=== PATIENT | female | born 1940 | race Caucasian/White ===

== ENCOUNTER 2016-09-12 10:12 | Emergency (ER) | payer MEDICARE, MEDICAID ==
[2016-09-12] MEDS ORDERED: NORMAL SALINE 1000 ML 1,000 ML IV ONE (10:37)
[2016-09-12] MEDS ORDERED: IPRATROPIUM/ALBUTEROL 0.5-2.5 MG/3 ML AMPUL NEB ONE (10:37)
--- NOTE | 2016-09-12 10:42 | ER Document Report ---
ED General - General Chief Complaint: Urinary Problem Stated Complaint: VAGINAL DISCHARGE Time seen by provider: 10:38 Notes: This is a 76-year-old female with a history of COPD that presents today with sudden onset of burning urination, and blood in the urine. She states that 0700 today, she went to urinate and noticed bubble gum pink urine soaked pad, as well as pink drops in the toilet bowl. She states that she was here about 3 weeks ago for the same problem. She was discharged the same day and completed an antibiotic regimen. Denies nausea vomiting fever or chills abdominal and back pain. She denies a history of cancer. She resides at [facility]. TRAVEL OUTSIDE OF THE [place] IN LAST 30 DAYS: No - Related Data Allergies/Adverse Reactions: No Known Allergies Allergy (Unverified 11/10/15 15:12) Past Medical History - Social History Smoking Status: Unknown if Ever Smoked Family History: Arthritis, CAD, CVA, DM, Hypertension, Malignancy - Past Medical History Cardiac Medical History: Reports: Hx Atrial Fibrillation, Hx Congestive Heart Failure, Hx Hypertension Pulmonary Medical History: Reports: Hx COPD GI Medical History: Reports: Hx Gastritis Musculoskeltal Medical History: Reports Hx Arthritis Psychiatric Medical History: Reports: Hx Dementia Past Surgical History: Reports: Hx Cholecystectomy, Hx Oral Surgery, Hx Tubal Ligation - Immunizations Immunizations up to date: Yes Hx Diphtheria, Pertussis, Tetanus Vaccination: Yes - unknown Review of Systems - Review of Systems Constitutional: denies: Chills, Diaphoresis, Fever Cardiovascular: denies: Chest pain Respiratory: denies: Cough Gastrointestinal: denies: Diarrhea, Nausea, Vomiting, Constipation Genitourinary: Dysuria Female Genitourinary: denies: Physical Exam - Vital signs Vitals: Temp Pulse Resp BP Pulse Ox 97.5 F 55 L 16 142/68 H 95 09/12/16 10:13 09/12/16 10:13 09/12/16 10:13 09/12/16 10:13 09/12/16 10:13 - General General appearance: Appears well - HEENT Head: Normocephalic - Respiratory Respiratory status: No: No respiratory distress Chest status: No: Tender Breath sounds: Normal, Wheezing - bilateral expiratory wheezes - Cardiovascular Rhythm: Regular Heart sounds: Normal auscultation - Abdominal Bowel sounds: Normal Tenderness: Nontender - Back Back: No: CVA tenderness - Extremities General upper extremity: Normal inspection General lower extremity: Normal inspection - Neurological Orientation: AAOx4 - Psychological Associated symptoms: Normal affect - Skin Skin Temperature: Warm Skin Moisture: Dry Skin Color: Normal Course - Re-evaluation Re-evalutation: 09/12/16 13:05 Patient is sleeping in bed. Vital signs are stable and reviewed. 09/12/16 14:50 Pelvic exam was done. Marisol RHODES chaperoned. No abnormalities were noted on pelvic exam. no abnormal discharge noted. cervix was closed. - Vital Signs Vital signs: Temp Pulse Resp BP Pulse Ox 98.0 F 62 16 138/64 H 96 09/12/16 18:48 09/12/16 18:48 09/12/16 18:48 09/12/16 18:48 09/12/16 18:48 - Laboratory Result Diagrams: 09/12/16 10:55 09/12/16 10:55 Laboratory results interpreted by me: 09/12/16 09/12/16 09/12/16 10:55 10:55 11:40 RDW 15.2 H Carbon Dioxide 32 H Glucose 74 L Total Protein 6.1 L Urine Protein 30 H Urine Blood LARGE H Ur Leukocyte Esterase MODERATE H Procedures - Pelvic Exam Pelvic exam Time completed: 14:51 Cultures obtained: Yes Wet prep obtained: Yes Herpes culture obtained: No POC sent to lab: No Foreign body removed: No Bimanual exam performed: Yes Witnessed by: Marisol RHODESmanager of applications development - Discharge Clinical Impression: UTI (urinary tract infection) Qualifiers: Urinary tract infection type: site unspecified Hematuria presence: with hematuria Qualified Code(s): N39.0 - Urinary tract infection, site not specified Condition: Stable Disposition: HOME-ASSISTED LIVING Additional Instructions: Return to the emergency department if symptoms worsen. Follow-up with primary care physician. Prescriptions: Amox Tr/Potassium Clavulanate [Augmentin 500-125 Tablet] 1 each PO BID #14 tablet Referrals: Arjun Duarte [employer] [Primary Care Provider] - Follow up as needed
[2016-09-12 11:13] LABS: ABSOLUTE EOSINOPHILS # (AUTO) 0.2 10^3/uL (0.0-0.6); ABSOLUTE LYMPHOCYTES (AUTO) 1.8 10^3/uL (0.5-4.7); ABSOLUTE NEUT (AUTO) 5.9 10^3/uL (1.7-8.2); BASOPHILS % (AUTO) 0.4 % (0-2); EOSINOPHILS % (AUTO) 2.4 % (0-6); HEMATOCRIT 41.8 % (36.0-47.0); HEMOGLOBIN 13.9 g/dL (12.0-15.5); HGB HCT DIFFERENCE -0.1; MEAN CORPUSCULAR HEMOGLOBIN 29.8 pg (27.0-33.4); MEAN CORPUSCULAR HGB CONC 33.3 g/dL (32.0-36.0); MEAN CORPUSCULAR VOLUME 89 fl (80-97); MONOCYTES % (AUTO) 10.9 % (3-13); RED BLOOD COUNT 4.68 10^6/uL (3.72-5.28); RED CELL DISTRIBUTION WIDTH 15.2 % (11.5-14.0); SEGMENTED NEUTROPHILS % (AUTO) 66.3 % (42-78); WHITE BLOOD COUNT 8.9 10^3/uL (4.0-10.5)
[2016-09-12 11:33] LABS: ALANINE AMINOTRANSFERASE 50 U/L (9-52); ALBUMIN 3.6 g/dL (3.5-5.0); ALKALINE PHOSPHATASE 75 U/L (38-126); ANION GAP 8 (5-19); ASPARTATE AMINO TRANSFERASE 35 U/L (14-36); BILIRUBIN,TOTAL 0.4 mg/dL (0.2-1.3); BLOOD UREA NITROGEN 10 mg/dL (7-20); CARBON DIOXIDE 32 mmol/L (22-30); CHLORIDE 101 mmol/L (98-107); CREATININE RESULT 0.85 mg/dL (0.52-1.25); GLUCOSE 74 mg/dL (75-110); POTASSIUM 3.6 mmol/L (3.6-5.0); SODIUM 140.8 mmol/L (137-145); TOTAL PROTEIN 6.1 g/dL (6.3-8.2)
[2016-09-12 12:10] LABS: APPEARANCE,URINE CLEAR; BILIRUBIN,URINE NEGATIVE (NEGATIVE); GLUCOSE, URINE NEGATIVE (NEGATIVE); KETONES,URINE NEGATIVE (NEGATIVE); LEUKOCYTE ESTERASE,URINE MODERATE (NEGATIVE); NITRITE,URINE NEGATIVE (NEGATIVE); PROTEIN,URINE 30 mg/dL (NEGATIVE); URINE SPECIFIC GRAVITY 1.005; UROBILINOGEN,URINE NEGATIVE mg/dL (<2.0)
[2016-09-12 16:39] LABS: CHLAM PCR NOT DETECTED (NOT DETECT)
[2016-09-12 18:51] VITALS: BP 138/64
== END 2016-09-12 18:48 | disposition home health service (06) ==
LOC: ER 10:12
DX: N39.0 Urinary tract infection, site not specified (principal); I48.91 Unspecified atrial fibrillation; I50.9 Heart failure, unspecified; I10 Essential (primary) hypertension; J44.9 Chronic obstructive pulmonary disease, unspecified; Z90.49 Acquired absence of other specified parts of digestive tract; Z98.51 Tubal ligation status
CPT/HCPCS: 94640; 99284; 96360; 36415; 87086; 87210; 85025; 80053; 81001; 87491; 87591; 71020; J7030; A9270; J7620

== ENCOUNTER 2017-01-02 14:20 | Inpatient (IN) | payer MEDICARE, MEDICAID ==
[2017-01-02] MEDS ORDERED: IPRATROPIUM/ALBUTEROL 0.5-2.5 MG/3 ML AMPUL NEB ONE (14:25)
--- NOTE | 2017-01-02 14:58 | ER Document Report ---
ED General - General Chief Complaint: Respiratory Distress Stated Complaint: BREATHING CONCERNS Mode of Arrival: Medic Information source: Patient, Emergency Med Personnel, [facility] Records Notes: This is a 76-year-old female who presents from [facility] secondary to increased work of breathing. She has a history of dementia and has had prior pneumonia. Reportedly at the shelter she was noted to be 91% on her 3 L. Normally she uses 2 L nasal cannula as needed. Also at the shelter she was noted to have a temperature of 101.3 she has been coughing up yellow and green sputum for the past few days. Patient reports that she is nauseated and has vomited today. She denies any chest pain. She received Solu-Medrol and a DuoNeb in route and she states that she is feeling much better right now. TRAVEL OUTSIDE OF THE [place] IN LAST 30 DAYS: No - Related Data Allergies/Adverse Reactions: No Known Allergies Allergy (Unverified 11/10/15 15:12) Past Medical History - General Information source: [facility] Records Cannot obtain history due to: Dementia - Social History Smoking Status: Unknown if Ever Smoked Frequency of alcohol use: None Drug Abuse: None Lives with: [facility] Family History: Arthritis, CAD, CVA, DM, Hypertension, Malignancy - Past Medical History Cardiac Medical History: Reports: Hx Atrial Fibrillation, Hx Congestive Heart Failure, Hx Hypertension Pulmonary Medical History: Reports: Hx COPD GI Medical History: Reports: Hx Gastritis Musculoskeltal Medical History: Reports Hx Arthritis Psychiatric Medical History: Reports: Hx Dementia Past Surgical History: Reports: Hx Cholecystectomy, Hx Oral Surgery, Hx Tubal Ligation - Immunizations Immunizations up to date: Yes Hx Diphtheria, Pertussis, Tetanus Vaccination: Yes - unknown Review of Systems - Review of Systems -: Yes ROS unobtainable due to patient's medical condition Constitutional: Fever Cardiovascular: denies: Chest pain Physical Exam - Vital signs Vitals: Temp Pulse Resp BP Pulse Ox 99.3 F 70 32 H 128/65 H 87 L 01/02/17 14:27 01/02/17 14:27 01/02/17 14:27 01/02/17 14:27 01/02/17 14:27 - Notes Notes: PHYSICAL EXAMINATION: GENERAL: Frail elderly female who is alert and conversant. She is in no acute distress. She has no conversational dyspnea. She does have frequent deep and productive cough. HEAD: Atraumatic, normocephalic. EYES: Pupils equal round and reactive to light, extraocular movements intact, sclera anicteric, conjunctiva are normal. ENT: nares patent, oropharynx clear without exudates. Moist mucous membranes. NECK: Normal range of motion, supple without lymphadenopathy LUNGS: Decreased breath sounds in left base. Faint occasional scattered expiratory wheeze. Otherwise good air movement. HEART: Regular rate and rhythm without murmurs ABDOMEN: Soft, nontender, normoactive bowel sounds. No guarding, no rebound. No masses appreciated. EXTREMITIES: Normal range of motion. No edema NEUROLOGICAL: Cranial nerves grossly intact. Normal speech. No gross focal motor or sensory deficits appreciated. PSYCH: Normal mood, normal affect. SKIN: Warm, Dry, normal turgor, no rashes or lesions noted. Course - Re-evaluation Re-evalutation: 01/02/17 14:56 Upon arrival to the ER patient was noted to have a room air sat of 87%. She was placed on 2 L nasal cannula and is now 94%. At this time, will proceed with workup for possible pneumonia/COPD exacerbation NH paperwork reviewed and pt's status is noted to be DNR. 01/02/17 16:32 CXR reviewed, pt with LLL pneumonia and leukocytosis/fever/O2 requirement. Will admit. IV antibiotics initiated in ER. Discussed with Dr. Lloyd for admission. - Vital Signs Vital signs: Temp Pulse Resp BP Pulse Ox 99.3 F 70 16 97/74 L 95 01/02/17 14:27 01/02/17 14:27 01/02/17 15:01 01/02/17 15:01 01/02/17 15:01 - Laboratory Result Diagrams: 01/02/17 14:40 01/02/17 14:40 Laboratory results interpreted by me: 01/02/17 01/02/17 01/02/17 14:40 14:40 14:40 WBC 19.1 H RDW 15.0 H Seg Neuts % (Manual) 85 H Band Neutrophils % 1 L Lymphocytes % (Manual) 7 L Abs Neuts (Manual) 16.4 H Glucose 114 H POC Glucose ALT 60 H Creatine Kinase 24 L Urine Protein Urine Ketones Urine Blood 01/02/17 01/02/17 14:54 15:20 WBC RDW Seg Neuts % (Manual) Band Neutrophils % Lymphocytes % (Manual) Abs Neuts (Manual) Glucose POC Glucose 118 H ALT Creatine Kinase Urine Protein 100 H Urine Ketones TRACE H Urine Blood SMALL H - EKG Interpretation by Me Additional EKG results interpreted by me: 01/02/17 14:57 EKG at 1433 demonstration sinus rhythm with a rate of 64. She does have a right axis deviation. She does have diffuse T-wave changes which were present on previous EKG however T-wave inversions are more pronounced laterally today. Discharge - Discharge Clinical Impression: Left lower lobe pneumonia Qualifiers: Pneumonia type: due to unspecified organism Qualified Code(s): J18.1 - Lobar pneumonia, unspecified organism Condition: Fair Disposition: ADMITTED INPATIENT Admitting Provider: Hospitalist - Dr. Nam Unit Admitted: [facility]
[2017-01-02 15:02] LABS: VENOUS BLOOD BASE EXCESS 0.7 mmol/L; VENOUS BLOOD PCO2 43.9 mmHg (35-63); VENOUS BLOOD PH 7.39 (7.30-7.42)
[2017-01-02 15:04] LABS: HEMATOCRIT 44.6 % (36.0-47.0); HEMOGLOBIN 14.9 g/dL (12.0-15.5); HGB HCT DIFFERENCE 0.1; MEAN CORPUSCULAR HEMOGLOBIN 30.4 pg (27.0-33.4); MEAN CORPUSCULAR HGB CONC 33.4 g/dL (32.0-36.0); MEAN CORPUSCULAR VOLUME 91 fl (80-97); WHITE BLOOD COUNT 19.1 10^3/uL (4.0-10.5)
[2017-01-02 15:15] LABS: PROTHROMBIN TIME 12.9 SEC (11.4-15.4)
[2017-01-02 15:17] LABS: ALANINE AMINOTRANSFERASE 60 U/L (9-52); ALBUMIN 3.7 g/dL (3.5-5.0); ALKALINE PHOSPHATASE 92 U/L (38-126); ANION GAP 15 (5-19); ASPARTATE AMINO TRANSFERASE 30 U/L (14-36); BILIRUBIN,DIRECT 0.2 mg/dL (0.0-0.4); BILIRUBIN,TOTAL 0.9 mg/dL (0.2-1.3); BLOOD UREA NITROGEN 15 mg/dL (7-20); CALCIUM 9.6 mg/dL (8.4-10.2); CARBON DIOXIDE 24 mmol/L (22-30); CHLORIDE 101 mmol/L (98-107); CREATININE RESULT 0.75 mg/dL (0.52-1.25); GLUCOSE 114 mg/dL (75-110); POTASSIUM 4.1 mmol/L (3.6-5.0); SODIUM 139.9 mmol/L (137-145); TOTAL PROTEIN 6.4 g/dL (6.3-8.2)
[2017-01-02 15:21] LABS: BAND NEUTROPHILS % (MANUAL) 1 % (3-5); BASOPHILS % (MANUAL) 0 % (0-2); EOSINOPHILS % (MANUAL) 1 % (0-6); LYMPHOCYTES % (MANUAL) 7 % (13-45); TOTAL CELLS COUNTED 100
[2017-01-02 15:22] LABS: RBC MORPHOLOGY COMMENT NORMO-CYTIC/CHROMIC
[2017-01-02 15:28] LABS: CREATINE KINASE MB 0.36 ng/mL (<4.55)
[2017-01-02 15:30] LABS: TROPONIN I < 0.012 ng/mL
[2017-01-02] MEDS: ALBUTEROL SULFATE 0.083% NEB 2.5 MG/3 ML AMPUL NEB SCH ×2 (15:42→16:00)
[2017-01-02 15:58] LABS: APPEARANCE,URINE CLEAR; BILIRUBIN,URINE NEGATIVE (NEGATIVE); GLUCOSE, URINE NEGATIVE (NEGATIVE); KETONES,URINE TRACE mg/dL (NEGATIVE); LEUKOCYTE ESTERASE,URINE NEGATIVE (NEGATIVE); NITRITE,URINE NEGATIVE (NEGATIVE); PROTEIN,URINE 100 mg/dL (NEGATIVE); URINE SPECIFIC GRAVITY 1.024; UROBILINOGEN,URINE NEGATIVE mg/dL (<2.0)
[2017-01-02] MEDS ORDERED: VANCOMYCIN HCL INJ 1000 MG VIAL IV ONE (16:22)
[2017-01-02] MEDS ORDERED: CEFEPIME 2 GM/D5W RTU 50 ML IV ONE (16:22)
--- NOTE | 2017-01-02 17:04 | EKG REPORT ---
SEVERITY:- ABNORMAL ECG - SINUS RHYTHM RIGHT AXIS DEVIATION ABNORMAL T, CONSIDER ISCHEMIA, DIFFUSE LEADS : Confirmed by: Layne Zambrano MD 02-Jan-2017 17:03:13
[2017-01-02] MEDS ORDERED: IPRATROPIUM/ALBUTEROL 0.5-2.5 MG/3 ML AMPUL NEB PRN (17:36)
[2017-01-02] MEDS ORDERED: 1/2 NORMAL SALINE 1,000 ML with POTASSIUM CHLORIDE 20 MEQ IV PRN ×2 (17:36)
[2017-01-02] MEDS ORDERED: ACETAMINOPHEN 325 MG TABLET PO PRN (17:36)
[2017-01-02] MEDS ORDERED: VANCOMYCIN HCL 0 MG in DEXTROSE 5%-WATER 250 ML IV NR (18:00)
--- NOTE | 2017-01-02 18:09 | PDOC H&P ---
History of Present Illness Admission Date/PCP: 01/02/17 16:50 NOEL NAVARRO NP History of Present Illness: NIGHAT LIVINGSTON is a 76 year old white female with a past medical history significant for dementia, tobacco use, Atrial fibrillation, hypertension and COPD who presents to the service with complaints of shortness of breath. She is presenting from a nursing facility. Apparently, she became short of breath there and had a fever of 101. She was brought in by EMS and was found to have a left lower lobe pneumonia. She was found to be satting well around 94%. White blood cell count was 19. She was started on 2 g of cefepime and vancomycin. At the bedside the patient currently has no complaints. She says she feels a little bit better with her breathing. He also states that she has a cough but can't quite bring it all the way up. She denies any nausea vomiting continued fevers or chills. Past Medical History Cardiac Medical History: Reports: Atrial Fibrillation, Congestive Heart Failure , Hypertension Pulmonary Medical History: Reports: Chronic Obstructive Pulmonary Disease (COPD) GI Medical History: Reports: Other GI History Note: Gastritis Musculoskeltal Medical History: Reports: Arthritis Psychiatric Medical History: Reports: Dementia Past Surgical History Past Surgical History: Reports: Cholecystectomy, Tubal Ligation Social History Information Source: [facility] with: [facility] Smoking Status: Current Every Day Smoker Frequency of Alcohol Use: None Hx Recreational Drug Use: No - she denies illegal drug use but states that she likes the smell of MJ Hx Prescription Drug Abuse: No Past Social History Note: Patient has been smoking since she was a teenager. She currently smokes one half pack of cigarettes per week. At its worse she would smoke 2 packs per day. Family History Family History: Arthritis, CAD, CVA, DM, Hypertension, Malignancy Parental Family History Reviewed: Yes Children Family History Reviewed: Yes Sibling(s) Family History Reviewed.: Yes Medication/Allergy Home Medications: Amiodarone HCl 100 mg PO QHS 05/02/16 Aspirin 81 mg PO DAILY 05/02/16 Cetirizine HCl [Allergy] 10 mg PO DAILY 05/02/16 Cholecalciferol (Vitamin D3) [Vitamin D3] 2,000 unit PO DAILY 05/02/16 Donepezil HCl 10 mg PO DAILY 05/02/16 Fluoxetine HCl 80 mg PO DAILY 05/02/16 Guaifenesin [Mucinex] 600 mg PO Q12 05/02/16 Ipratropium/Albuterol Sulfate [Duoneb 3 ml Ampul] 3 ml NEB [id number] PRN 05/02/16 Lisinopril [Zestril] 2.5 mg PO Q12 05/02/16 Lorazepam [Ativan 0.5 mg Tablet] 1 mg PO TID 05/02/16 Melatonin/Pyridoxine [Melatonin 3 mg Tablet] 3 mg PO QHS 05/02/16 Montelukast Sodium 10 mg PO DAILY 05/02/16 Prednisone 5 mg PO DAILY 05/02/16 Simvastatin [Zocor 10 mg Tablet] 10 mg PO QHS 05/02/16 Topiramate 100 mg PO QHS 05/02/16 Acetaminophen [Mapap] 500 mg PO Q4 PRN 01/03/17 Fluticasone Propionate [Flonase Nasal [place] 50 Mcg/[place] 16 gm] 1 spray NASL BID 01/03/17 Guaifenesin [Robitussin Syrup 200 mg/10 ml Ud Cup] 10 ml PO Q6HP PRN 01/03/17 Loperamide HCl [Loperamide] 2 mg PO PRN PRN MDD 8 01/03/17 Mag Hydrox/Al Hydrox/Simeth [Maalox Suspension] 30 ml PO PRN PRN 01/03/17 Magnesium Hydroxide [Milk of Magnesia] 30 ml PO HSP PRN 01/03/17 Neomy Sulf/Bacitrac Zn/Poly [Triple Antibiotic Ointment] 1 applic TP PRN PRN Propranolol HCl [Propranolol HCl] 10 mg PO Q8 01/03/17 Allergies/Adverse Reactions: No Known Allergies Allergy (Unverified 11/10/15 15:12) Review of Systems Review of Systems: Review of systems is positive already listed in the history of present illness. In addition to this patient admits arthritic symptoms. She lives in a nursing facility and states that she walks with a walker. He occasionally has diarrhea whenever she eats too much chocolate. She denies any decrease in appetite. She denies nausea vomiting. She denies constipation. She denies visual changes. She denies lightheadedness or dizziness. She denies any hot or cold intolerance. Physical Exam Vital Signs: Temp Pulse Resp BP Pulse Ox 99.3 F 70 16 97/74 L 95 01/02/17 14:27 01/02/17 14:27 01/02/17 15:01 01/02/17 15:01 01/02/17 15:01 PHYSICAL EXAM: GENERAL: This is a well-developed well-nourished frail-appearing white female resting in no acute distress. HEENT: Normocephalic atraumatic. Trachea is midline. Sclerae are anicteric. Poor dentition. Patient is largely intentional S. With a few broken off teeth. She states that she left her uppers where she lives. Moist mucous membranes. HEART: Regular rate and rhythm. No murmurs rubs or gallops. On the telemetry however she is in and out of A. fib. LUNGS: Diminished at the bases bilaterally with equal rise and fall of the chest. No wheezes, rales or rhonchi. ABDOMEN: Soft, nontender, nondistended with normoactive bowel sounds EXTREMITIES: No clubbing cyanosis or edema. 2+ peripheral pulses. 5 out of 5 in the upper and lower extremities bilaterally. NEURO: Awake, alert, oriented to self. Cranial nerves II through XII grossly intact. She answers most of my questions appropriately. It's not until I ask questions about where she is an the president and the date that she begins to have trouble. She jokingly starts to use expletives. And then states that she has a lover where she lives and that she would like to talk to him PSYCH: Normal affect. Results Impressions: Chest X-Ray 01/02/17 14:25 IMPRESSION: Left lower lobe pneumonia. Assessment & Plan - Diagnosis (1) Left lower lobe pneumonia Qualifiers: Pneumonia type: due to unspecified organism Qualified Code(s): J18.1 - Lobar pneumonia, unspecified organism Plan: This is a healthcare acquired left lower lobe pneumonia. We will keep her on Zosyn and vancomycin for the moment. Try her best to obtain a sputum sample. Will have as needed and scheduled nebulizer treatments. Continue oxygen as needed. Keep sats greater than 88%. (2) COPD without exacerbation Plan: Continue nebulizer schedule As well as when necessary. No need for steroids. Oxygen therapy. (3) Hypertension Plan: Continue Outpatient medications. (4) Dementia Plan: Patient is stable I suspect that she is at baseline. She does not seem delirious. - Time Time Spent: 50 to 70 Minutes - Inpatient Certification Based on my medical assessment, after consideration of the patient's comorbidities, presenting symptoms, or acuity I expect that the services needed warrant INPATIENT care.: Yes I certify that my determination is in accordance with my understanding of Medicare's requirements for reasonable and necessary INPATIENT services [42 CFR 412.3e].: Yes Medical Necessity: Need Close Monitoring Due to Risk of Patient Decompensation
[2017-01-02] MEDS ORDERED: PIPERACILLIN/TAZOBACTAM 3.375 GM VIAL IV PRN (18:35)
[2017-01-02] MEDS: POTASSI CL 20 MEQ/1/2NS 1L 1000 ML IV PRN (20:29)
[2017-01-02] MEDS: AMIODARONE HCL 200 MG TABLET PO SCH (21:54)
[2017-01-02] MEDS: SIMVASTATIN 10 MG TABLET PO SCH (21:55)
[2017-01-02] MEDS: LISINOPRIL 5 MG TABLET PO SCH (21:56)
[2017-01-02] MEDS: PIPERACILLIN SODIUM/TAZOBACTAM 3.375 GM in NORMAL SALINE 100 ML IV SCH (21:59)
[2017-01-03] MEDS ORDERED: PIPERACILLIN/TAZOBACTAM 3.375 GM VIAL IV ONE (03:16)
[2017-01-03] MEDS: PIPERACILLIN SODIUM/TAZOBACTAM 3.375 GM in NORMAL SALINE 100 ML IV SCH ×3 (03:31→14:38)
[2017-01-03 06:57] LABS: HEMATOCRIT 41.7 % (36.0-47.0); HEMOGLOBIN 13.9 g/dL (12.0-15.5); MEAN CORPUSCULAR HEMOGLOBIN 30.4 pg (27.0-33.4); MEAN CORPUSCULAR HGB CONC 33.2 g/dL (32.0-36.0); MEAN CORPUSCULAR VOLUME 92 fl (80-97); RED BLOOD COUNT 4.56 10^6/uL (3.72-5.28); RED CELL DISTRIBUTION WIDTH 15.1 % (11.5-14.0); WHITE BLOOD COUNT 11.6 10^3/uL (4.0-10.5)
[2017-01-03 07:19] LABS: ANION GAP 11 (5-19); BLOOD UREA NITROGEN 20 mg/dL (7-20); CALCIUM 9.4 mg/dL (8.4-10.2); CARBON DIOXIDE 26 mmol/L (22-30); CHLORIDE 102 mmol/L (98-107); CREATININE RESULT 0.79 mg/dL (0.52-1.25); GLUCOSE 125 mg/dL (75-110); MAGNESIUM 1.9 mg/dL (1.6-2.3); POTASSIUM 4.4 mmol/L (3.6-5.0); SODIUM 139.4 mmol/L (137-145)
[2017-01-03 07:54] LABS: BASOPHILS % (MANUAL) 0 % (0-2); EOSINOPHILS % (MANUAL) 0 % (0-6); LYMPHOCYTES % (MANUAL) 2 % (13-45); TOTAL CELLS COUNTED 100
[2017-01-03 07:55] LABS: ANISOCYTOSIS SLIGHT; POLYCHROMASIA SLIGHT; TOXIC GRANULATION SLIGHT
[2017-01-03] MEDS: DONEPEZIL HCL 5 MG TABLET PO SCH (09:16)
[2017-01-03] MEDS: LISINOPRIL 5 MG TABLET PO SCH ×2 (09:16→23:39)
[2017-01-03] MEDS: ASPIRIN 81 MG TABLET, CHEWABLE PO SCH (09:16)
[2017-01-03] MEDS: ENOXAPARIN SODIUM INJ 40 MG/0.4 ML DISP.SYRIN SUBCUT SCH (09:16)
[2017-01-03] MEDS: FLUOXETINE HCL 20 MG CAPSULE PO SCH (09:16)
[2017-01-03] MEDS ORDERED: ACETAMINOPHEN 325 MG TABLET PO PRN (13:33)
--- NOTE | 2017-01-03 15:41 | PDOC PROGRESS REPORT ---
Subjective Progress Note for:: 01/03/17 Subjective:: This is a follow-up visit for healthcare associated pneumonia. At the bedside patient is doing quite well. She has no complaints except for little bit of anxiety. I reassured her that I have ordered her anxiolytic for today Physical Exam Vital Signs: Temp Pulse Resp BP Pulse Ox 97.5 F 92 18 151/66 H 96 01/03/17 07:36 01/03/17 15:21 01/03/17 15:21 01/03/17 07:36 01/03/17 15:21 Intake & Output 01/02/17 01/03/17 01/04/17 06:59 06:59 06:59 Intake Total 313 Balance 313 Weight 65.5 kg PHYSICAL EXAM: GENERAL: This is a well-developed well-nourished frail-appearing white female resting in no acute distress. HEENT: Normocephalic atraumatic. Trachea is midline. Sclerae are anicteric. Poor dentition. HEART: Regular rate and rhythm. No murmurs rubs or gallops. LUNGS: Diminished at the bases bilaterally with equal rise and fall of the chest. No wheezes, rales or rhonchi. ABDOMEN: nondistended EXTREMITIES: No clubbing cyanosis or edema. NEURO: Awake, alert, oriented to self. Cranial nerves II through XII grossly intact. S PSYCH: Normal affect. Patient is quite animated today. Results Laboratory Results: 01/03/17 06:22 01/03/17 06:22 01/03/17 01/03/17 06:22 06:22 WBC 11.6 H RBC 4.56 Hgb 13.9 Hct 41.7 MCV 92 MCH 30.4 MCHC 33.2 RDW 15.1 H Plt Count 186 Seg Neutrophils % Not Reportable Lymphocytes % Not Reportable Monocytes % Not Reportable Eosinophils % Not Reportable Basophils % Not Reportable Absolute Neutrophils Not Reportable Absolute Lymphocytes Not Reportable Absolute Monocytes Not Reportable Absolute Eosinophils Not Reportable Absolute Basophils Not Reportable Sodium 139.4 Potassium 4.4 Chloride 102 Carbon Dioxide 26 Anion Gap 11 BUN 20 Creatinine 0.79 Est GFR ( Amer) > 60 Est GFR (Non-Af Amer) > 60 Glucose 125 H Calcium 9.4 Magnesium 1.9 01/03/17 06:22 NT-Pro-B Natriuret Pep 267 Impressions: Chest X-Ray 01/02/17 14:25 IMPRESSION: Left lower lobe pneumonia. Assessment & Plan - Diagnosis (1) Left lower lobe pneumonia Qualifiers: Pneumonia type: due to unspecified organism Qualified Code(s): J18.1 - Lobar pneumonia, unspecified organism Plan: This is a healthcare acquired left lower lobe pneumonia. We will keep her on Zosyn and vancomycin for the moment. Try her best to obtain a sputum sample. Will have as needed and scheduled nebulizer treatments. Continue oxygen as needed. Keep sats greater than 88%. Her white blood cell count is down to 11. She is doing quite well. Anticipate should be able to go home tomorrow. If so she will likely do well with something like Levaquin. (2) COPD without exacerbation Plan: Continue nebulizer schedule As well as when necessary. No need for steroids. Oxygen therapy. (3) Hypertension Plan: Continue Outpatient medications. (4) Dementia Plan: Patient is stable I suspect that she is at baseline. She does not seem delirious. Continue donepezil - Time Time Spent with patient: 15-24 minutes Within: within 24 hours - Inpatient Certification Medical Necessity: Significant Comorbidiites Make Outpatient Treatment Too Risky
[2017-01-03] MEDS: VANCOMYCIN HCL 500 MG in DEXTROSE 5%-WATER 100 ML IV SCH (18:27)
[2017-01-03] MEDS: LORAZEPAM 0.5 MG TABLET PO SCH (18:27)
[2017-01-03] MEDS: FLUTICASONE NASAL SPRAY 50 MCG/SPRY 120 SPRAY/16 GM NASL SCH (20:37)
[2017-01-03] MEDS ORDERED: MELATONIN PO SCH (22:00)
[2017-01-03] MEDS ORDERED: PYRIDOXINE PO SCH (22:00)
[2017-01-03] MEDS: AMIODARONE HCL 200 MG TABLET PO SCH (23:40)
[2017-01-03] MEDS: GUAIFENESIN 600 MG TABLET.SA PO SCH (23:41)
[2017-01-03] MEDS: PROPRANOLOL HCL 10 MG TABLET PO SCH (23:41)
[2017-01-03] MEDS: SIMVASTATIN 10 MG TABLET PO SCH (23:41)
[2017-01-04] MEDS: PIPERACILLIN SODIUM/TAZOBACTAM 3.375 GM in NORMAL SALINE 100 ML IV SCH ×3 (01:25→08:33)
[2017-01-04] MEDS: VANCOMYCIN HCL 500 MG in DEXTROSE 5%-WATER 100 ML IV SCH (05:44)
[2017-01-04] MEDS: PROPRANOLOL HCL 10 MG TABLET PO SCH (05:44)
[2017-01-04 06:54] LABS: ABSOLUTE EOSINOPHILS # (AUTO) 0.1 10^3/uL (0.0-0.6); ABSOLUTE LYMPHOCYTES (AUTO) 1.6 10^3/uL (0.5-4.7); ABSOLUTE MONOCYTES (AUTO) 1.1 10^3/uL (0.1-1.4); ABSOLUTE NEUT (AUTO) 5.9 10^3/uL (1.7-8.2); BASOPHILS % (AUTO) 0.3 % (0-2); EOSINOPHILS % (AUTO) 1.6 % (0-6); HEMATOCRIT 41.8 % (36.0-47.0); HGB HCT DIFFERENCE 0.2; LYMPHOCYTES % (AUTO) 17.7 % (13-45); MEAN CORPUSCULAR HEMOGLOBIN 30.7 pg (27.0-33.4); MEAN CORPUSCULAR HGB CONC 33.6 g/dL (32.0-36.0); MEAN CORPUSCULAR VOLUME 91 fl (80-97); MONOCYTES % (AUTO) 12.7 % (3-13); RED BLOOD COUNT 4.58 10^6/uL (3.72-5.28); SEGMENTED NEUTROPHILS % (AUTO) 67.7 % (42-78); WHITE BLOOD COUNT 8.8 10^3/uL (4.0-10.5)
[2017-01-04 07:09] LABS: ANION GAP 11 (5-19); BLOOD UREA NITROGEN 22 mg/dL (7-20); CALCIUM 9.1 mg/dL (8.4-10.2); CARBON DIOXIDE 27 mmol/L (22-30); CHLORIDE 105 mmol/L (98-107); CREATININE RESULT 0.82 mg/dL (0.52-1.25); GLUCOSE 94 mg/dL (75-110); POTASSIUM 3.8 mmol/L (3.6-5.0); SODIUM 142.8 mmol/L (137-145)
[2017-01-04] MEDS: IPRATROPIUM/ALBUTEROL 0.5-2.5 MG/3 ML AMPUL NEB PRN ×2 (07:47→22:30)
[2017-01-04] MEDS: FLUTICASONE NASAL SPRAY 50 MCG/SPRY 120 SPRAY/16 GM NASL SCH ×2 (09:14→17:53)
[2017-01-04] MEDS: FLUOXETINE HCL 20 MG CAPSULE PO SCH (09:15)
[2017-01-04] MEDS: MONTELUKAST SODIUM 10 MG TABLET PO SCH (09:15)
[2017-01-04] MEDS: DONEPEZIL HCL 5 MG TABLET PO SCH (09:16)
[2017-01-04] MEDS: CETIRIZINE 10 MG TABLET PO SCH (09:16)
[2017-01-04] MEDS: LORAZEPAM 0.5 MG TABLET PO SCH ×3 (09:16→17:54)
[2017-01-04] MEDS: GUAIFENESIN 600 MG TABLET.SA PO SCH ×2 (09:16→22:12)
[2017-01-04] MEDS: CHOLECALCIFEROL (D3) 1,000 UNIT TABLET PO SCH (09:16)
[2017-01-04] MEDS: PREDNISONE 5 MG TABLET PO SCH (09:16)
[2017-01-04] MEDS: ASPIRIN 81 MG TABLET, CHEWABLE PO SCH (09:16)
[2017-01-04] MEDS: LISINOPRIL 5 MG TABLET PO SCH ×2 (09:16→22:12)
[2017-01-04] MEDS ORDERED: (PENDING PHARMACY ID) (Cholecalciferol (Vitamin D3) [Vitamin D3] 2,000 UNIT) PO SCH (10:00)
--- NOTE | 2017-01-04 13:26 | PDOC PROGRESS REPORT ---
Subjective Progress Note for:: 01/04/17 Subjective:: Patient is doing well she has no complaints No shortness of breath no chest pain Today she is actually alert and awake and answers questions appropriately On the monitor she was found to be bradycardic at the rate 40-50 Physical Exam Vital Signs: Temp Pulse Resp BP Pulse Ox 98.8 F 48 L 16 124/50 L 100 01/04/17 11:32 01/04/17 11:32 01/04/17 11:32 01/04/17 11:32 01/04/17 11:32 Intake & Output 01/03/17 01/04/17 01/05/17 00:59 00:59 00:59 Intake Total 537 1503 1021 Output Total 100 Balance 437 1503 1021 Weight 65.5 kg 65.5 kg General appearance: PRESENT: no acute distress, well-developed, well-nourished Head exam: PRESENT: atraumatic, normocephalic Eye exam: PRESENT: conjunctiva pink, EOMI, PERRLA. ABSENT: scleral icterus Ear exam: PRESENT: normal external ear exam Mouth exam: PRESENT: moist, tongue midline Neck exam: ABSENT: carotid bruit, JVD, lymphadenopathy, thyromegaly Respiratory exam: PRESENT: clear to auscultation robbin. ABSENT: rales, rhonchi, wheezes Cardiovascular exam: PRESENT: RRR. ABSENT: diastolic murmur, rubs, systolic murmur Pulses: PRESENT: normal dorsalis pedis pul Vascular exam: PRESENT: normal capillary refill GI/Abdominal exam: PRESENT: normal bowel sounds, soft. ABSENT: distended, guarding, mass, organolmegaly, rebound, tenderness Rectal exam: PRESENT: deferred Extremities exam: PRESENT: full ROM. ABSENT: calf tenderness, clubbing, pedal edema Neurological exam: PRESENT: alert, awake, oriented to person, oriented to place , oriented to time, oriented to situation, CN II-XII grossly intact. ABSENT: motor sensory deficit Psychiatric exam: PRESENT: appropriate affect, normal mood. ABSENT: homicidal ideation, suicidal ideation Skin exam: PRESENT: dry, intact, warm. ABSENT: cyanosis, rash Results Laboratory Results: 01/04/17 06:35 01/04/17 06:35 01/04/17 01/04/17 06:35 06:35 WBC 8.8 RBC 4.58 Hgb 14.0 Hct 41.8 MCV 91 MCH 30.7 MCHC 33.6 RDW 15.0 H Plt Count 218 Seg Neutrophils % 67.7 Lymphocytes % 17.7 Monocytes % 12.7 Eosinophils % 1.6 Basophils % 0.3 Absolute Neutrophils 5.9 Absolute Lymphocytes 1.6 Absolute Monocytes 1.1 Absolute Eosinophils 0.1 Absolute Basophils 0.0 Sodium 142.8 Potassium 3.8 Chloride 105 Carbon Dioxide 27 Anion Gap 11 BUN 22 H Creatinine 0.82 Est GFR ( Amer) > 60 Est GFR (Non-Af Amer) > 60 Glucose 94 Calcium 9.1 Magnesium 2.0 01/03/17 06:22 NT-Pro-B Natriuret Pep 267 Impressions: Chest X-Ray 01/02/17 14:25 IMPRESSION: Left lower lobe pneumonia. Assessment & Plan - Diagnosis (1) Bradycardia Is this a current diagnosis for this admission?: Yes (2) Dementia Qualifiers: Dementia type: unspecified type Is this a current diagnosis for this admission?: Yes (3) Hypertension Qualifiers: Hypertension type: essential hypertension Qualified Code(s): I10 - Essential (primary) hypertension (4) Left lower lobe pneumonia Qualifiers: Pneumonia type: due to unspecified organism Qualified Code(s): J18.1 - Lobar pneumonia, unspecified organism Is this a current diagnosis for this admission?: Yes - Time Time Spent with patient: We will discontinue propranolol And also will decrease ; Prozac patient is on 80mg a day We will decrease it to 40 mg because of her age Patient will be switched to by mouth antibiotics and discharged in a.m. if she remains stable Time Spent with patient: 25-34 minutes
[2017-01-04] MEDS: POTASSI CL 20 MEQ/1/2NS 1L 1000 ML IV PRN (14:14)
[2017-01-04] MEDS: SIMVASTATIN 10 MG TABLET PO SCH (22:12)
[2017-01-04] MEDS: DOXYCYCLINE HYCLATE 100 MG TABLET PO SCH (22:13)
[2017-01-04] MEDS: AMIODARONE HCL 200 MG TABLET PO SCH (22:13)
[2017-01-05 07:08] LABS: ABSOLUTE EOSINOPHILS # (AUTO) 0.1 10^3/uL (0.0-0.6); ABSOLUTE LYMPHOCYTES (AUTO) 1.5 10^3/uL (0.5-4.7); ABSOLUTE NEUT (AUTO) 4.8 10^3/uL (1.7-8.2); BASOPHILS % (AUTO) 0.2 % (0-2); HEMATOCRIT 40.6 % (36.0-47.0); HEMOGLOBIN 13.5 g/dL (12.0-15.5); HGB HCT DIFFERENCE -0.1; LYMPHOCYTES % (AUTO) 20.2 % (13-45); MEAN CORPUSCULAR HEMOGLOBIN 30.4 pg (27.0-33.4); MEAN CORPUSCULAR HGB CONC 33.2 g/dL (32.0-36.0); MEAN CORPUSCULAR VOLUME 91 fl (80-97); MONOCYTES % (AUTO) 13.1 % (3-13); RED BLOOD COUNT 4.44 10^6/uL (3.72-5.28); RED CELL DISTRIBUTION WIDTH 14.5 % (11.5-14.0); SEGMENTED NEUTROPHILS % (AUTO) 64.5 % (42-78); WHITE BLOOD COUNT 7.5 10^3/uL (4.0-10.5)
[2017-01-05 07:42] LABS: ANION GAP 8 (5-19); BLOOD UREA NITROGEN 21 mg/dL (7-20); CALCIUM 9.1 mg/dL (8.4-10.2); CARBON DIOXIDE 34 mmol/L (22-30); CHLORIDE 102 mmol/L (98-107); CREATININE RESULT 0.77 mg/dL (0.52-1.25); GLUCOSE 87 mg/dL (75-110); MAGNESIUM 1.8 mg/dL (1.6-2.3); SODIUM 143.8 mmol/L (137-145)
[2017-01-05] MEDS: ASPIRIN 81 MG TABLET, CHEWABLE PO SCH (09:55)
[2017-01-05] MEDS: DONEPEZIL HCL 5 MG TABLET PO SCH (09:55)
[2017-01-05] MEDS: DOXYCYCLINE HYCLATE 100 MG TABLET PO SCH ×2 (09:56→21:39)
[2017-01-05] MEDS: LORAZEPAM 0.5 MG TABLET PO SCH ×3 (09:56→18:25)
[2017-01-05] MEDS: CETIRIZINE 10 MG TABLET PO SCH (09:56)
[2017-01-05] MEDS: GUAIFENESIN 600 MG TABLET.SA PO SCH ×2 (09:56→21:39)
[2017-01-05] MEDS: MONTELUKAST SODIUM 10 MG TABLET PO SCH (09:56)
[2017-01-05] MEDS: PREDNISONE 5 MG TABLET PO SCH (09:56)
[2017-01-05] MEDS: FLUOXETINE HCL 20 MG CAPSULE PO SCH (09:56)
[2017-01-05] MEDS: CHOLECALCIFEROL (D3) 1,000 UNIT TABLET PO SCH (09:56)
[2017-01-05] MEDS: LISINOPRIL 5 MG TABLET PO SCH ×2 (09:56→21:39)
[2017-01-05] MEDS: ENOXAPARIN SODIUM INJ 40 MG/0.4 ML DISP.SYRIN SUBCUT SCH (09:56)
[2017-01-05] MEDS: FLUTICASONE NASAL SPRAY 50 MCG/SPRY 120 SPRAY/16 GM NASL SCH ×2 (10:02→18:26)
[2017-01-05] MEDS: IPRATROPIUM/ALBUTEROL 0.5-2.5 MG/3 ML AMPUL NEB PRN (12:16)
--- NOTE | 2017-01-05 16:17 | PDOC PROGRESS REPORT ---
Subjective Progress Note for:: 01/05/17 Subjective:: Patient is doing well with these she states she is somewhat anxious about going back to the assisted living today; she feels weak No fever no chills no chest pains Physical Exam Vital Signs: Temp Pulse Resp BP Pulse Ox 97.8 F 61 16 134/70 H 98 01/05/17 12:00 01/05/17 14:00 01/05/17 12:16 01/05/17 12:00 01/05/17 12:16 Intake & Output 01/04/17 01/05/17 01/06/17 00:59 00:59 00:59 Intake Total 1503 1990 Balance 1503 1990 Weight 65.5 kg 65.5 kg 65.9 kg General appearance: PRESENT: no acute distress, well-developed, well-nourished Head exam: PRESENT: atraumatic, normocephalic Eye exam: PRESENT: conjunctiva pink, EOMI, PERRLA. ABSENT: scleral icterus Ear exam: PRESENT: normal external ear exam Mouth exam: PRESENT: moist, tongue midline Neck exam: ABSENT: carotid bruit, JVD, lymphadenopathy, thyromegaly Respiratory exam: PRESENT: clear to auscultation robbin. ABSENT: rales, rhonchi, wheezes Cardiovascular exam: PRESENT: RRR. ABSENT: diastolic murmur, rubs, systolic murmur Pulses: PRESENT: normal dorsalis pedis pul Vascular exam: PRESENT: normal capillary refill GI/Abdominal exam: PRESENT: normal bowel sounds, soft. ABSENT: distended, guarding, mass, organolmegaly, rebound, tenderness Rectal exam: PRESENT: deferred Extremities exam: PRESENT: full ROM. ABSENT: calf tenderness, clubbing, pedal edema Neurological exam: PRESENT: alert, awake, oriented to person, oriented to place , oriented to time, oriented to situation, CN II-XII grossly intact. ABSENT: motor sensory deficit Psychiatric exam: PRESENT: appropriate affect, normal mood. ABSENT: homicidal ideation, suicidal ideation Skin exam: PRESENT: dry, intact, warm. ABSENT: cyanosis, rash Results Laboratory Results: 01/05/17 06:57 01/05/17 06:57 01/05/17 01/05/17 06:57 06:57 WBC 7.5 RBC 4.44 Hgb 13.5 Hct 40.6 MCV 91 MCH 30.4 MCHC 33.2 RDW 14.5 H Plt Count 247 Seg Neutrophils % 64.5 Lymphocytes % 20.2 Monocytes % 13.1 H Eosinophils % 2.0 Basophils % 0.2 Absolute Neutrophils 4.8 Absolute Lymphocytes 1.5 Absolute Monocytes 1.0 Absolute Eosinophils 0.1 Absolute Basophils 0.0 Sodium 143.8 Potassium 4.0 Chloride 102 Carbon Dioxide 34 H Anion Gap 8 BUN 21 H Creatinine 0.77 Est GFR ( Amer) > 60 Est GFR (Non-Af Amer) > 60 Glucose 87 Calcium 9.1 Magnesium 1.8 01/03/17 06:22 NT-Pro-B Natriuret Pep 267 Impressions: Chest X-Ray 01/02/17 14:25 IMPRESSION: Left lower lobe pneumonia. Assessment & Plan - Diagnosis (1) Bradycardia Is this a current diagnosis for this admission?: Yes (2) Dementia Qualifiers: Dementia type: unspecified type Is this a current diagnosis for this admission?: Yes (3) Hypertension Qualifiers: Hypertension type: essential hypertension Qualified Code(s): I10 - Essential (primary) hypertension (4) Left lower lobe pneumonia Qualifiers: Pneumonia type: due to unspecified organism Qualified Code(s): J18.1 - Lobar pneumonia, unspecified organism Is this a current diagnosis for this admission?: Yes - Time Time Spent with patient: We will continue present management Continue to monitor overnight Discharge in a.m. to assisted living Time Spent with patient: 25-34 minutes
[2017-01-05] MEDS: SIMVASTATIN 10 MG TABLET PO SCH (21:39)
[2017-01-05] MEDS: AMIODARONE HCL 200 MG TABLET PO SCH (21:39)
[2017-01-06] MEDS: ENOXAPARIN SODIUM INJ 40 MG/0.4 ML DISP.SYRIN SUBCUT SCH (08:31)
[2017-01-06 09:13] VITALS: BP 133/68
[2017-01-06] MEDS: GUAIFENESIN 600 MG TABLET.SA PO SCH (10:24)
[2017-01-06] MEDS: CHOLECALCIFEROL (D3) 1,000 UNIT TABLET PO SCH (10:24)
[2017-01-06] MEDS: DOXYCYCLINE HYCLATE 100 MG TABLET PO SCH (10:24)
[2017-01-06] MEDS: LISINOPRIL 5 MG TABLET PO SCH (10:24)
[2017-01-06] MEDS: FLUTICASONE NASAL SPRAY 50 MCG/SPRY 120 SPRAY/16 GM NASL SCH (10:24)
[2017-01-06] MEDS: PREDNISONE 5 MG TABLET PO SCH (10:24)
[2017-01-06] MEDS: MONTELUKAST SODIUM 10 MG TABLET PO SCH (10:24)
[2017-01-06] MEDS: ASPIRIN 81 MG TABLET, CHEWABLE PO SCH (10:24)
[2017-01-06] MEDS: CETIRIZINE 10 MG TABLET PO SCH (10:24)
[2017-01-06] MEDS: LORAZEPAM 0.5 MG TABLET PO SCH (10:24)
[2017-01-06] MEDS: FLUOXETINE HCL 20 MG CAPSULE PO SCH (10:24)
[2017-01-06] MEDS: DONEPEZIL HCL 5 MG TABLET PO SCH (10:25)
--- NOTE | 2017-01-06 11:46 | PDOC TRANSFER SUMMARY ---
General - Admit/Disc Date/PCP Admission Date/Primary Care Provider: 01/02/17 17:37 NOEL NAVARRO NP Discharge Date: 01/06/17 - Discharge Diagnosis (1) Bradycardia Is this a current diagnosis for this admission?: YesSummary: The patient was noted to have sinus bradycardia especially night with heart rate around 40-45 she is chronically on propranolol for essential tremors We decreased the propranolol to 10 mg twice a day (2) Dementia Is this a current diagnosis for this admission?: YesSummary: Patient's mentation was excellent during her stay she did not have been need for sedation we decreased the Ativan only one at night after discharge (3) Hypertension Is this a current diagnosis for this admission?: YesSummary: Was controlled (4) Left lower lobe pneumonia Is this a current diagnosis for this admission?: YesSummary: Improved patient was discharged on doxycycline for 10 days (5) COPD exacerbation Is this a current diagnosis for this admission?: YesSummary: Improved - Additional Information Discharge Diet: As Tolerated Discharge Activity: Activity As Tolerated Home Medications: Amiodarone HCl 100 mg PO QHS 05/02/16 Aspirin 81 mg PO DAILY 05/02/16 Cetirizine HCl [Allergy] 10 mg PO DAILY 05/02/16 Cholecalciferol (Vitamin D3) [Vitamin D3] 2,000 unit PO DAILY 05/02/16 Donepezil HCl 10 mg PO DAILY 05/02/16 Fluoxetine HCl 80 mg PO DAILY 05/02/16 Guaifenesin [Mucinex] 600 mg PO Q12 05/02/16 Ipratropium/Albuterol Sulfate [Duoneb 3 ml Ampul] 3 ml NEB [id number] PRN 05/02/16 Lisinopril [Zestril] 2.5 mg PO Q12 05/02/16 Melatonin/Pyridoxine [Melatonin 3 mg Tablet] 3 mg PO QHS 05/02/16 Montelukast Sodium 10 mg PO DAILY 05/02/16 Prednisone 5 mg PO DAILY 05/02/16 Simvastatin [Zocor 10 mg Tablet] 10 mg PO QHS 05/02/16 Topiramate 100 mg PO QHS 05/02/16 Acetaminophen [Mapap] 500 mg PO Q4 PRN 01/03/17 Fluticasone Propionate [Flonase Nasal Allen 50 Mcg/Allen 16 gm] 1 spray NASL BID 01/03/17 Guaifenesin [Robitussin Syrup 200 mg/10 ml Ud Cup] 10 ml PO Q6HP PRN 01/03/17 Loperamide HCl [Loperamide] 2 mg PO PRN PRN MDD 8 01/03/17 Mag Hydrox/Al Hydrox/Simeth [Maalox Suspension] 30 ml PO PRN PRN 01/03/17 Magnesium Hydroxide [Milk of Magnesia] 30 ml PO HSP PRN 01/03/17 Doxycycline Hyclate [Vibramycin 100 mg Tablet] 100 mg PO Q12 #20 tablet Lorazepam [Ativan 0.5 mg Tablet] 1 mg PO QHS #30 01/06/17 Propranolol HCl [Inderal 10 mg Tablet] 10 mg PO Q12 #60 tab 01/06/17 History of Present Illness Admission Date/PCP: 01/02/17 17:37 NOEL NAVARRO NP Patient complains of: Shortness of breath History of Present Illness: NIGHAT LIVINGSTON is a 76 year old white female with a past medical history significant for dementia, tobacco use, Atrial fibrillation, hypertension and COPD who presents to the service with complaints of shortness of breath. She is presenting from a nursing facility. Apparently, she became short of breath there and had a fever of 101. She was brought in by EMS and was found to have a left lower lobe pneumonia. She was found to be satting well around 94%. White blood cell count was 19. She was started on 2 g of cefepime and vancomycin. At the bedside the patient currently has no complaints. She says she feels a little bit better with her breathing. He also states that she has a cough but can't quite bring it all the way up. She denies any nausea vomiting continued fevers or chills. Physical Exam Vital Signs: Temp Pulse Resp BP Pulse Ox 97.8 F 70 12 133/68 H 98 01/06/17 08:21 01/06/17 08:21 01/06/17 08:21 01/06/17 08:21 01/06/17 08:21 Intake & Output 01/05/17 01/06/17 01/07/17 00:59 00:59 00:59 Intake Total 1990 1300 100 Balance 1990 1300 100 Weight 65.5 kg 65.9 kg 65.9 kg General appearance: PRESENT: no acute distress, well-developed, well-nourished Head exam: PRESENT: atraumatic, normocephalic Eye exam: PRESENT: conjunctiva pink, EOMI, PERRLA. ABSENT: scleral icterus Ear exam: PRESENT: normal external ear exam Mouth exam: PRESENT: moist, tongue midline Neck exam: ABSENT: carotid bruit, JVD, lymphadenopathy, thyromegaly Respiratory exam: PRESENT: clear to auscultation robbin. ABSENT: rales, rhonchi, wheezes Cardiovascular exam: PRESENT: RRR. ABSENT: diastolic murmur, rubs, systolic murmur Pulses: PRESENT: normal dorsalis pedis pul Vascular exam: PRESENT: normal capillary refill GI/Abdominal exam: PRESENT: normal bowel sounds, soft. ABSENT: distended, guarding, mass, organolmegaly, rebound, tenderness Rectal exam: PRESENT: deferred Extremities exam: PRESENT: full ROM. ABSENT: calf tenderness, clubbing, pedal edema Neurological exam: PRESENT: alert, awake, CN II-XII grossly intact. ABSENT: motor sensory deficit Psychiatric exam: PRESENT: appropriate affect, normal mood. ABSENT: homicidal ideation, suicidal ideation Skin exam: PRESENT: dry, intact, warm. ABSENT: cyanosis, rash Results Laboratory Results: 01/05/17 06:57 01/05/17 06:57 01/03/17 06:22 NT-Pro-B Natriuret Pep 267 Labs- Entire Visit 01/02/17 01/02/17 01/02/17 14:40 14:40 14:40 WBC 19.1 H RBC 4.90 Hgb 14.9 Hct 44.6 MCV 91 MCH 30.4 MCHC 33.4 RDW 15.0 H Plt Count 199 Total Counted 100 Seg Neutrophils % Not Reportable Seg Neuts % (Manual) 85 H Band Neutrophils % 1 L Lymphocytes % Not Reportable Lymphocytes % (Manual) 7 L Monocytes % Not Reportable Monocytes % (Manual) 6 Eosinophils % Not Reportable Eosinophils % (Manual) 1 Basophils % Not Reportable Basophils % (Manual) 0 Absolute Neutrophils Not Reportable Abs Neuts (Manual) 16.4 H Absolute Lymphocytes Not Reportable Abs Lymphs (Manual) 1.3 Absolute Monocytes Not Reportable Abs Monocytes (Manual) 1.1 Absolute Eosinophils Not Reportable Absolute Eos (Manual) 0.2 Absolute Basophils Not Reportable Abs Basophils (Manual) 0.0 Toxic Granulation Giant Platelets PRESENT Platelet Comment ADEQUATE Polychromasia Anisocytosis RBC Morph Comment NORMO-CYTIC/CHROMIC PT 12.9 INR 0.94 VBG pH VBG pCO2 VBG HCO3 VBG Base Excess Sodium 139.9 Potassium 4.1 Chloride 101 Carbon Dioxide 24 Anion Gap 15 BUN 15 Creatinine 0.75 Est GFR ( Amer) > 60 Est GFR (Non-Af Amer) > 60 Glucose 114 H POC Glucose Lactic Acid Calcium 9.6 Magnesium Total Bilirubin 0.9 Direct Bilirubin 0.2 Indirect Bilirubin Not Reportable Neonat Total Bilirubin Not Reportable AST 30 ALT 60 H Alkaline Phosphatase 92 Creatine Kinase CK-MB (CK-2) Troponin I NT-Pro-B Natriuret Pep Total Protein 6.4 Albumin 3.7 Urine Color Urine Appearance Urine pH Ur Specific Withams Urine Protein Urine Glucose (UA) Urine Ketones Urine Blood Urine Nitrite Urine Bilirubin Urine Urobilinogen Ur Leukocyte Esterase Urine WBC (Auto) Urine RBC (Auto) Squamous Epi Cells Auto Urine Mucus (Auto) Urine Ascorbic Acid Influenza A (Rapid) Influenza B (Rapid) 01/02/17 01/02/17 01/02/17 14:40 14:40 14:40 WBC RBC Hgb Hct MCV MCH MCHC RDW Plt Count Total Counted Seg Neutrophils % Seg Neuts % (Manual) Band Neutrophils % Lymphocytes % Lymphocytes % (Manual) Monocytes % Monocytes % (Manual) Eosinophils % Eosinophils % (Manual) Basophils % Basophils % (Manual) Absolute Neutrophils Abs Neuts (Manual) Absolute Lymphocytes Abs Lymphs (Manual) Absolute Monocytes Abs Monocytes (Manual) Absolute Eosinophils Absolute Eos (Manual) Absolute Basophils Abs Basophils (Manual) Toxic Granulation Giant Platelets Platelet Comment Polychromasia Anisocytosis RBC Morph Comment PT INR VBG pH 7.39 VBG pCO2 43.9 VBG HCO3 26.0 VBG Base Excess 0.7 Sodium Potassium Chloride Carbon Dioxide Anion Gap BUN Creatinine Est GFR ( Amer) Est GFR (Non-Af Amer) Glucose POC Glucose Lactic Acid 0.8 Calcium Magnesium Total Bilirubin Direct Bilirubin Indirect Bilirubin Neonat Total Bilirubin AST ALT Alkaline Phosphatase Creatine Kinase CK-MB (CK-2) 0.36 Troponin I < 0.012 NT-Pro-B Natriuret Pep Total Protein Albumin Urine Color Urine Appearance Urine pH Ur Specific Withams Urine Protein Urine Glucose (UA) Urine Ketones Urine Blood Urine Nitrite Urine Bilirubin Urine Urobilinogen Ur Leukocyte Esterase Urine WBC (Auto) Urine RBC (Auto) Squamous Epi Cells Auto Urine Mucus (Auto) Urine Ascorbic Acid Influenza A (Rapid) Influenza B (Rapid) 01/02/17 01/02/17 01/02/17 14:40 14:54 15:20 WBC RBC Hgb Hct MCV MCH MCHC RDW Plt Count Total Counted Seg Neutrophils % Seg Neuts % (Manual) Band Neutrophils % Lymphocytes % Lymphocytes % (Manual) Monocytes % Monocytes % (Manual) Eosinophils % Eosinophils % (Manual) Basophils % Basophils % (Manual) Absolute Neutrophils Abs Neuts (Manual) Absolute Lymphocytes Abs Lymphs (Manual) Absolute Monocytes Abs Monocytes (Manual) Absolute Eosinophils Absolute Eos (Manual) Absolute Basophils Abs Basophils (Manual) Toxic Granulation Giant Platelets Platelet Comment Polychromasia Anisocytosis RBC Morph Comment PT INR VBG pH VBG pCO2 VBG HCO3 VBG Base Excess Sodium Potassium Chloride Carbon Dioxide Anion Gap BUN Creatinine Est GFR ( Amer) Est GFR (Non-Af Amer) Glucose POC Glucose 118 H Lactic Acid Calcium Magnesium Total Bilirubin Direct Bilirubin Indirect Bilirubin Neonat Total Bilirubin AST ALT Alkaline Phosphatase Creatine Kinase 24 L CK-MB (CK-2) Troponin I NT-Pro-B Natriuret Pep Total Protein Albumin Urine Color YELLOW Urine Appearance CLEAR Urine pH 5.0 Ur Specific Withams 1.024 Urine Protein 100 H Urine Glucose (UA) NEGATIVE Urine Ketones TRACE H Urine Blood SMALL H Urine Nitrite NEGATIVE Urine Bilirubin NEGATIVE Urine Urobilinogen NEGATIVE Ur Leukocyte Esterase NEGATIVE Urine WBC (Auto) 1 Urine RBC (Auto) 2 Squamous Epi Cells Auto <1 Urine Mucus (Auto) RARE Urine Ascorbic Acid NEGATIVE Influenza A (Rapid) Influenza B (Rapid) 01/02/17 01/03/17 01/03/17 15:20 06:22 06:22 WBC 11.6 H RBC 4.56 Hgb 13.9 Hct 41.7 MCV 92 MCH 30.4 MCHC 33.2 RDW 15.1 H Plt Count 186 Total Counted 100 Seg Neutrophils % Not Reportable Seg Neuts % (Manual) 92 H Band Neutrophils % Lymphocytes % Not Reportable Lymphocytes % (Manual) 2 L Monocytes % Not Reportable Monocytes % (Manual) 6 Eosinophils % Not Reportable Eosinophils % (Manual) 0 Basophils % Not Reportable Basophils % (Manual) 0 Absolute Neutrophils Not Reportable Abs Neuts (Manual) 10.7 H Absolute Lymphocytes Not Reportable Abs Lymphs (Manual) 0.2 L Absolute Monocytes Not Reportable Abs Monocytes (Manual) 0.7 Absolute Eosinophils Not Reportable Absolute Eos (Manual) 0.0 Absolute Basophils Not Reportable Abs Basophils (Manual) 0.0 Toxic Granulation SLIGHT Giant Platelets Platelet Comment ADEQUATE Polychromasia SLIGHT Anisocytosis SLIGHT RBC Morph Comment PT INR VBG pH VBG pCO2 VBG HCO3 VBG Base Excess Sodium 139.4 Potassium 4.4 Chloride 102 Carbon Dioxide 26 Anion Gap 11 BUN 20 Creatinine 0.79 Est GFR ( Amer) > 60 Est GFR (Non-Af Amer) > 60 Glucose 125 H POC Glucose Lactic Acid Calcium 9.4 Magnesium 1.9 Total Bilirubin Direct Bilirubin Indirect Bilirubin Neonat Total Bilirubin AST ALT Alkaline Phosphatase Creatine Kinase CK-MB (CK-2) Troponin I NT-Pro-B Natriuret Pep Total Protein Albumin Urine Color Urine Appearance Urine pH Ur Specific Withams Urine Protein Urine Glucose (UA) Urine Ketones Urine Blood Urine Nitrite Urine Bilirubin Urine Urobilinogen Ur Leukocyte Esterase Urine WBC (Auto) Urine RBC (Auto) Squamous Epi Cells Auto Urine Mucus (Auto) Urine Ascorbic Acid Influenza A (Rapid) NEGATIVE Influenza B (Rapid) NEGATIVE 01/03/17 01/04/17 01/04/17 06:22 06:35 06:35 WBC 8.8 RBC 4.58 Hgb 14.0 Hct 41.8 MCV 91 MCH 30.7 MCHC 33.6 RDW 15.0 H Plt Count 218 Total Counted Seg Neutrophils % 67.7 Seg Neuts % (Manual) Band Neutrophils % Lymphocytes % 17.7 Lymphocytes % (Manual) Monocytes % 12.7 Monocytes % (Manual) Eosinophils % 1.6 Eosinophils % (Manual) Basophils % 0.3 Basophils % (Manual) Absolute Neutrophils 5.9 Abs Neuts (Manual) Absolute Lymphocytes 1.6 Abs Lymphs (Manual) Absolute Monocytes 1.1 Abs Monocytes (Manual) Absolute Eosinophils 0.1 Absolute Eos (Manual) Absolute Basophils 0.0 Abs Basophils (Manual) Toxic Granulation Giant Platelets Platelet Comment Polychromasia Anisocytosis RBC Morph Comment PT INR VBG pH VBG pCO2 VBG HCO3 VBG Base Excess Sodium 142.8 Potassium 3.8 Chloride 105 Carbon Dioxide 27 Anion Gap 11 BUN 22 H Creatinine 0.82 Est GFR ( Amer) > 60 Est GFR (Non-Af Amer) > 60 Glucose 94 POC Glucose Lactic Acid Calcium 9.1 Magnesium 2.0 Total Bilirubin Direct Bilirubin Indirect Bilirubin Neonat Total Bilirubin AST ALT Alkaline Phosphatase Creatine Kinase CK-MB (CK-2) Troponin I NT-Pro-B Natriuret Pep 267 Total Protein Albumin Urine Color Urine Appearance Urine pH Ur Specific Withams Urine Protein Urine Glucose (UA) Urine Ketones Urine Blood Urine Nitrite Urine Bilirubin Urine Urobilinogen Ur Leukocyte Esterase Urine WBC (Auto) Urine RBC (Auto) Squamous Epi Cells Auto Urine Mucus (Auto) Urine Ascorbic Acid Influenza A (Rapid) Influenza B (Rapid) 01/05/17 01/05/17 06:57 06:57 WBC 7.5 RBC 4.44 Hgb 13.5 Hct 40.6 MCV 91 MCH 30.4 MCHC 33.2 RDW 14.5 H Plt Count 247 Total Counted Seg Neutrophils % 64.5 Seg Neuts % (Manual) Band Neutrophils % Lymphocytes % 20.2 Lymphocytes % (Manual) Monocytes % 13.1 H Monocytes % (Manual) Eosinophils % 2.0 Eosinophils % (Manual) Basophils % 0.2 Basophils % (Manual) Absolute Neutrophils 4.8 Abs Neuts (Manual) Absolute Lymphocytes 1.5 Abs Lymphs (Manual) Absolute Monocytes 1.0 Abs Monocytes (Manual) Absolute Eosinophils 0.1 Absolute Eos (Manual) Absolute Basophils 0.0 Abs Basophils (Manual) Toxic Granulation Giant Platelets Platelet Comment Polychromasia Anisocytosis RBC Morph Comment PT INR VBG pH VBG pCO2 VBG HCO3 VBG Base Excess Sodium 143.8 Potassium 4.0 Chloride 102 Carbon Dioxide 34 H Anion Gap 8 BUN 21 H Creatinine 0.77 Est GFR ( Amer) > 60 Est GFR (Non-Af Amer) > 60 Glucose 87 POC Glucose Lactic Acid Calcium 9.1 Magnesium 1.8 Total Bilirubin Direct Bilirubin Indirect Bilirubin Neonat Total Bilirubin AST ALT Alkaline Phosphatase Creatine Kinase CK-MB (CK-2) Troponin I NT-Pro-B Natriuret Pep Total Protein Albumin Urine Color Urine Appearance Urine pH Ur Specific Withams Urine Protein Urine Glucose (UA) Urine Ketones Urine Blood Urine Nitrite Urine Bilirubin Urine Urobilinogen Ur Leukocyte Esterase Urine WBC (Auto) Urine RBC (Auto) Squamous Epi Cells Auto Urine Mucus (Auto) Urine Ascorbic Acid Influenza A (Rapid) Influenza B (Rapid) Impressions: Chest X-Ray 01/02/17 14:25 IMPRESSION: Left lower lobe pneumonia. Transfer Plan - Disposition Transfer Plan: Patient is discharged to assisted living ; she should follow-up within a week time with a primary care physician - Time Spent with Patient Time spent with patient: Less than 30 Minutes
[2017-01-06] MEDS ORDERED: PYRIDOXINE PO SCH (14:00)
[2017-01-06] MEDS ORDERED: MELATONIN PO SCH (14:00)
[2017-01-06] MEDS ORDERED: LORAZEPAM 1 MG TABLET PO SCH (14:00)
== END 2017-01-06 14:00 | disposition home health service (06) | DRG 190 ==
LOC: ER 14:20 → EH 16:50 → UNDOADMIN 16:50 → EH 17:37 → 5 23:30 → UNDODISIN 01-06 13:38
PROVIDERS: ADMIT Hospitalist; ATTEND Hospitalist
DX: J44.0 Chronic obstructive pulmonary disease with (acute) lower respiratory infection (principal); J18.1 Lobar pneumonia, unspecified organism; Z66 Do not resuscitate; I48.2 Chronic atrial fibrillation; I50.9 Heart failure, unspecified; I11.0 Hypertensive heart disease with heart failure; F41.9 Anxiety disorder, unspecified; R00.1 Bradycardia, unspecified; F03.90 Unspecified dementia, unspecified severity, without behavioral disturbance, psychotic disturbance, mood disturbance, and anxiety; F17.210 Nicotine dependence, cigarettes, uncomplicated; Z79.82 Long term (current) use of aspirin; Z79.52 Long term (current) use of systemic steroids; Z79.51 Long term (current) use of inhaled steroids; Z79.899 Other long term (current) drug therapy
CPT/HCPCS: 36415; 71010; 80048; 80053; 81001; 82550; 82553; 82803; 82962; 83605; 83735; 83880; 84484; 85025; 85610; 87040; 87086; 87804; 93005; 93010; 94640; 96374; 99285; J0692; J1650; J2543; J3370; J3480; J3490; J7512; J7620

== ENCOUNTER 2017-03-30 00:54 | Emergency (ER) | payer MEDICARE, MEDICAID ==
[2017-03-30] MEDS ORDERED: IPRATROPIUM/ALBUTEROL 0.5-2.5 MG/3 ML AMPUL NEB ONE (00:56)
[2017-03-30] MEDS ORDERED: METHYLPREDNISOLONE INJ 125 MG/2 ML SDV IV ONE (00:56)
--- NOTE | 2017-03-30 01:24 | ER Document Report ---
ED Respiratory Problem - General Stated Complaint: POSSIBLE DYSPNEA Time Seen by Provider: 03/30/17 01:17 Mode of Arrival: Stretcher Information source: Patient, Emergency Med Personnel, Outside Facility Records TRAVEL OUTSIDE OF THE [place] IN LAST 30 DAYS: No - HPI Patient complains to provider of: COPD, Cough, Short of breath Onset: This evening Duration: Worse/persistent Context: Hx COPD Short of Breath: Moderate Chest pain/discomfort: Tightness Cough: Productive Sputum amount: Small Sputum color: Yellow Sputum consistency: Mucoid Associated symptoms: None Similar symptoms previously: Yes Notes: Patient is a 77-year-old female with a history of dementia, A. fib, hypertension , COPD, who was brought to the emergency room by EMS from local long-term for complaints of cough with difficulty breathing, patient reports that she also feels confused at times, although she is alert and oriented 3, she has wheezing bilaterally, she is oxygen dependent on 2 L via nasal cannula, patient denies any chest pain, no abdominal pain, no fevers, she was recently diagnosed with pneumonia - Related Data Allergies/Adverse Reactions: No Known Allergies Allergy (Unverified 11/10/15 15:12) Past Medical History - General Information source: Patient, Emergency Med Personnel, Outside Facility Records - Social History Smoking Status: Current Every Day Smoker Family History: Arthritis, CAD, CVA, DM, Hypertension, Malignancy - Past Medical History Cardiac Medical History: Reports: Hx Atrial Fibrillation, Hx Congestive Heart Failure, Hx Hypertension Pulmonary Medical History: Reports: Hx COPD GI Medical History: Reports: Hx Gastritis Musculoskeltal Medical History: Reports Hx Arthritis Psychiatric Medical History: Reports: Hx Dementia Past Surgical History: Reports: Hx Cholecystectomy, Hx Oral Surgery, Hx Tubal Ligation - Immunizations Immunizations up to date: Yes Hx Diphtheria, Pertussis, Tetanus Vaccination: Yes - unknown Review of Systems - Review of Systems Constitutional: No symptoms reported EENT: No symptoms reported Cardiovascular: No symptoms reported Respiratory: See HPI Gastrointestinal: No symptoms reported Genitourinary: No symptoms reported Female Genitourinary: No symptoms reported Musculoskeletal: No symptoms reported Skin: No symptoms reported Hematologic/Lymphatic: No symptoms reported Neurological/Psychological: Confusion -: Yes All other systems reviewed and negative Physical Exam - Vital signs Vitals: Temp Pulse Resp BP Pulse Ox 97.7 F 57 L 20 126/55 H 93 03/30/17 02:29 03/30/17 02:29 03/30/17 02:29 03/30/17 02:29 03/30/17 02:29 Interpretation: Normal - General General appearance: Alert In distress: None - HEENT Head: Normocephalic, Atraumatic Eyes: Normal Conjunctiva: Normal Extraocular movements intact: Yes Eyelashes: Normal Pupils: PERRL - Respiratory Respiratory status: No respiratory distress Chest status: Nontender Breath sounds: Productive cough, Wheezing Chest palpation: Normal - Cardiovascular Rhythm: Regular Heart sounds: Normal auscultation Murmur: No - Abdominal Inspection: Normal Distension: No distension Bowel sounds: Normal Tenderness: Nontender Organomegaly: No organomegaly - Back Back: Normal, Nontender - Extremities General upper extremity: Normal inspection, Nontender, Normal color, Normal ROM , Normal temperature General lower extremity: Normal inspection, Nontender, Normal color, Normal ROM , Normal temperature, Normal weight bearing. No: Leroy's sign - Neurological Neuro grossly intact: Yes Cognition: Normal Orientation: AAOx4 Dorota Coma Scale Eye Opening: Spontaneous Dorota Coma Scale Verbal: Oriented [place] Coma Scale Motor: Obeys Commands Dorota Coma Scale Total: 15 Speech: Normal Motor strength normal: LUE, RUE, LLE, RLE Sensory: Normal - Psychological Associated symptoms: Normal affect, Normal mood - Skin Skin Temperature: Warm Skin Moisture: Dry Skin Color: Normal Course - Re-evaluation Re-evalutation: 03/30/17 03:08 Lab and imaging findings are unremarkable and discussed with patient at bedside , she reports feeling much better after breathing treatments, lungs are now clear to auscultation, vital signs have been stable, symptoms are consistent with likely COPD exacerbation, patient will be discharged back to the long-term with instructions for follow-up and advised to return if any additional concerns, patient acknowledges understanding and agreement with this plan - Vital Signs Vital signs: Temp Pulse Resp BP Pulse Ox 97.7 F 57 L 20 126/55 H 93 03/30/17 02:29 03/30/17 02:29 03/30/17 02:29 03/30/17 02:29 03/30/17 02:29 - Laboratory Result Diagrams: 03/30/17 01:50 03/30/17 01:50 Laboratory results interpreted by me: 03/30/17 03/30/17 03/30/17 01:50 01:50 01:50 RDW 14.9 H Monocytes % 13.8 H VBG pH 7.47 H VBG pCO2 34.8 L ALT 54 H - Diagnostic Test Radiology reviewed: Image reviewed, Reports reviewed Discharge - Discharge Clinical Impression: COPD exacerbation Condition: Stable Disposition: HOME, SELF-CARE Instructions: Chronic Obstructive Lung Disease ([facility]) Additional Instructions: Follow up with your primary care provider in one to 2 days. Return to the emergency room immediately if symptoms worsen or any additional concerns.
[2017-03-30] MEDS: ALBUTEROL SULFATE 0.083% NEB 2.5 MG/3 ML AMPUL NEB SCH ×2 (01:45→02:03)
--- NOTE | 2017-03-30 01:53 | RADIOLOGY REPORT (SQ) ---
EXAM DESCRIPTION: CHEST SINGLE VIEW COMPLETED DATE/TIME: 03/30/2017 1:31 am REASON FOR STUDY: difficulty breathing COMPARISON: 01/02/2017. EXAM PARAMETERS: NUMBER OF VIEWS: One view. TECHNIQUE: Single frontal radiographic view of the chest acquired. RADIATION DOSE: NA LIMITATIONS: Rotated. FINDINGS: LUNGS AND PLEURA: No opacities, masses or pneumothorax. No pleural effusion. MEDIASTINUM AND HILAR STRUCTURES: No masses. Contour normal. HEART AND VASCULAR STRUCTURES: Heart normal in size. Normal vasculature. BONES: No acute findings. HARDWARE: None in the chest. OTHER: No other significant finding. IMPRESSION: NO ACUTE RADIOGRAPHIC FINDING IN THE CHEST. TECHNICAL DOCUMENTATION: JOB ID: [id number]
[2017-03-30 02:33] LABS: ABSOLUTE EOSINOPHILS # (AUTO) 0.2 10^3/uL (0.0-0.6); ABSOLUTE LYMPHOCYTES (AUTO) 2.3 10^3/uL (0.5-4.7); ABSOLUTE MONOCYTES (AUTO) 1.1 10^3/uL (0.1-1.4); ABSOLUTE NEUT (AUTO) 4.5 10^3/uL (1.7-8.2); BASOPHILS % (AUTO) 0.5 % (0-2); EOSINOPHILS % (AUTO) 2.5 % (0-6); HEMATOCRIT 42.3 % (36.0-47.0); HEMOGLOBIN 13.7 g/dL (12.0-15.5); HGB HCT DIFFERENCE -1.2; LYMPHOCYTES % (AUTO) 27.6 % (13-45); MEAN CORPUSCULAR HEMOGLOBIN 30.3 pg (27.0-33.4); MEAN CORPUSCULAR HGB CONC 32.3 g/dL (32.0-36.0); MEAN CORPUSCULAR VOLUME 94 fl (80-97); MONOCYTES % (AUTO) 13.8 % (3-13); RED BLOOD COUNT 4.52 10^6/uL (3.72-5.28); RED CELL DISTRIBUTION WIDTH 14.9 % (11.5-14.0); SEGMENTED NEUTROPHILS % (AUTO) 55.6 % (42-78); WHITE BLOOD COUNT 8.2 10^3/uL (4.0-10.5)
[2017-03-30 02:37] LABS: VENOUS BLOOD BASE EXCESS 1.1 mmol/L; VENOUS BLOOD HCO3 24.5 mmol/L (20-32); VENOUS BLOOD PCO2 34.8 mmHg (35-63); VENOUS BLOOD PH 7.47 (7.30-7.42)
[2017-03-30 02:38] LABS: PROTHROMBIN TIME 12.6 SEC (11.4-15.4)
[2017-03-30 02:47] LABS: ALANINE AMINOTRANSFERASE 54 U/L (9-52); ALBUMIN 3.6 g/dL (3.5-5.0); ALKALINE PHOSPHATASE 73 U/L (38-126); ANION GAP 7 (5-19); ASPARTATE AMINO TRANSFERASE 33 U/L (14-36); BILIRUBIN,DIRECT 0.4 mg/dL (0.0-0.4); BILIRUBIN,TOTAL 0.5 mg/dL (0.2-1.3); BLOOD UREA NITROGEN 16 mg/dL (7-20); CARBON DIOXIDE 30 mmol/L (22-30); CHLORIDE 103 mmol/L (98-107); CREATINE KINASE 51 U/L (30-135); CREATININE RESULT 0.83 mg/dL (0.52-1.25); GLUCOSE 90 mg/dL (75-110); SODIUM 140.2 mmol/L (137-145); TOTAL PROTEIN 6.6 g/dL (6.3-8.2)
[2017-03-30 02:59] LABS: CREATINE KINASE MB 1.51 ng/mL (<4.55); TROPONIN I < 0.012 ng/mL
[2017-03-30 03:31] LABS: APPEARANCE,URINE CLEAR; BILIRUBIN,URINE NEGATIVE (NEGATIVE); GLUCOSE, URINE NEGATIVE (NEGATIVE); KETONES,URINE NEGATIVE (NEGATIVE); LEUKOCYTE ESTERASE,URINE NEGATIVE (NEGATIVE); NITRITE,URINE NEGATIVE (NEGATIVE); PROTEIN,URINE NEGATIVE (NEGATIVE); URINE SPECIFIC GRAVITY 1.018; UROBILINOGEN,URINE NEGATIVE mg/dL (<2.0)
[2017-03-30 04:04] VITALS: BP 111/51
--- NOTE | 2017-03-30 12:05 | EKG REPORT ---
SEVERITY:- ABNORMAL ECG - ACCELERATED JUNCTIONAL ESCAPE RHYTHM BORDERLINE RIGHT AXIS DEVIATION ABNORMAL T, CONSIDER ISCHEMIA, ANT-LAT LEADS : Confirmed by: Layne Zambrano MD 30-Mar-2017 12:03:31
== END 2017-03-30 04:22 | disposition home or self-care (01) ==
LOC: ER 00:54
DX: J44.1 Chronic obstructive pulmonary disease with (acute) exacerbation (principal); R06.02 Shortness of breath; F03.90 Unspecified dementia, unspecified severity, without behavioral disturbance, psychotic disturbance, mood disturbance, and anxiety; I48.91 Unspecified atrial fibrillation; I10 Essential (primary) hypertension; F17.200 Nicotine dependence, unspecified, uncomplicated; R06.00 Dyspnea, unspecified
CPT/HCPCS: 93005; 94640 ×2; 99285; 96374; 36415; 87040; 87086; 82553; 82550; 85025; 85610; 80053; 81001; 84484; 82803; 83605; 83880; 71010; 93010; J2930; A9270 ×2; J7620

== ENCOUNTER 2017-06-25 20:41 | Inpatient (IN) | payer MEDICARE, MEDICAID ==
[2017-06-25] MEDS ORDERED: PREDNISONE 20 MG TABLET PO ONE (20:48)
--- NOTE | 2017-06-25 21:25 | RADIOLOGY REPORT (SQ) ---
EXAM DESCRIPTION: CHEST SINGLE VIEW COMPLETED DATE/TIME: 06/25/2017 9:15 pm REASON FOR STUDY: [id number] COMPARISON: None. NUMBER OF VIEWS: One view. TECHNIQUE: Single frontal radiographic view of the chest acquired. LIMITATIONS: None. FINDINGS: LUNGS AND PLEURA: No opacities, masses or pneumothorax. No pleural effusion. Attenuated bl ood vessels and flattened sean-diaphragms. MEDIASTINUM AND HILAR STRUCTURES: No masses. Contour normal. HEART AND VASCULAR STRUCTURES: Heart normal in size. Normal vasculature. BONES: No acute findings. HARDWARE: None in the chest. OTHER: No other significant finding. IMPRESSION: COPD. NO ACUTE RADIOGRAPHIC FINDING IN THE CHEST. TECHNICAL DOCUMENTATION: JOB ID: [id number] [facility]- All Rights Reserved
[2017-06-25] MEDS ORDERED: IPRATROPIUM/ALBUTEROL 0.5-2.5 MG/3 ML AMPUL NEB ONE ×2 (22:21→23:29)
[2017-06-25] MEDS ORDERED: CEFTRIAXONE 1 GM/D5W RTU 1 GM/50 ML RTUPB IV ONE (22:22)
--- NOTE | 2017-06-25 22:27 | ER Document Report ---
ED General - General Chief Complaint: Shortness Of Breath Stated Complaint: SHORTNESS OF BREATH Time Seen by Provider: 06/25/17 21:37 Mode of Arrival: Stretcher Information source: Patient Notes: This is a 77-year-old female with a history of COPD who is brought into the emergency room by EMS from the [facility] because of shortness of breath, wheezing, cough. TRAVEL OUTSIDE OF THE [place] IN LAST 30 DAYS: No - HPI Onset: Last week Onset/Duration: Gradual Quality of pain: No pain Severity: None Pain Level: Denies Associated symptoms: Chills, Fever, Shortness of breath Exacerbated by: Denies Relieved by: Denies Similar symptoms previously: Yes Recently seen / treated by doctor: Yes - Related Data Allergies/Adverse Reactions: No Known Allergies Allergy (Unverified 11/10/15 15:12) Past Medical History - General Information source: Patient - Social History Smoking Status: Former Smoker Cigarette use (# per day): No Chew tobacco use (# tins/day): No Smoking Education Provided: No Frequency of alcohol use: None Drug Abuse: None Lives with: Family Family History: Arthritis, CAD, CVA, DM, Hypertension, Malignancy Patient has suicidal ideation: No Patient has homicidal ideation: No - Past Medical History Cardiac Medical History: Reports: Hx Atrial Fibrillation, Hx Congestive Heart Failure, Hx Hypertension Pulmonary Medical History: Reports: Hx COPD GI Medical History: Reports: Hx Gastritis Musculoskeltal Medical History: Reports Hx Arthritis Psychiatric Medical History: Reports: Hx Dementia Past Surgical History: Reports: Hx Cholecystectomy, Hx Oral Surgery, Hx Tubal Ligation - Immunizations Immunizations up to date: Yes Hx Diphtheria, Pertussis, Tetanus Vaccination: Yes - unknown Review of Systems - Review of Systems Constitutional: denies: Chills, Fever EENT: No symptoms reported Cardiovascular: No symptoms reported - José Miguel Respiratory: See HPI Gastrointestinal: No symptoms reported Genitourinary: No symptoms reported Female Genitourinary: No symptoms reported Musculoskeletal: No symptoms reported Skin: No symptoms reported Hematologic/Lymphatic: No symptoms reported Neurological/Psychological: No symptoms reported Physical Exam - Vital signs Vitals: Resp Pulse Ox 18 98 06/25/17 20:47 06/25/17 20:47 Notes: Physical exam: GENERAL: 77-year-old female, alert and oriented 3, respiratory distress, accessory muscle use. HEAD: Atraumatic, normocephalic. EYES: Pupils equal round and reactive to light, extraocular movements intact, sclera anicteric, conjunctiva are normal. ENT: TMs normal, nares patent, oropharynx clear without exudates. Moist mucous membranes. NECK: Normal range of motion, supple without obvious mass or JVD. LUNGS: Bilateral wheezing with accessory muscle use HEART: Regular rate and rhythm without murmurs, rubs or gallops. ABDOMEN: Soft, normoactive bowel sounds. No tenderness to palpation. No guarding, no rebound. No masses appreciated. EXTREMITIES: Normal range of motion, no pitting or edema. No clubbing or cyanosis. NEUROLOGICAL: Cranial nerves II through XII grossly intact. Normal speech, moving all extremities. PSYCH: Normal mood, normal affect. SKIN: Warm, Dry, normal turgor, no rashes or lesions noted. Course - Vital Signs Vital signs: Temp Pulse Resp BP Pulse Ox 98.0 F 15 132/92 H 98 06/25/17 20:48 06/25/17 21:31 06/25/17 21:31 06/25/17 21:31 - Laboratory Result Diagrams: 06/25/17 21:50 06/25/17 21:50 Laboratory results interpreted by me: 06/25/17 06/25/17 21:50 21:50 Hgb 15.6 H RDW 14.4 H Lymphocytes % 12.3 L Carbon Dioxide 31 H Glucose 132 H - Diagnostic Test Radiology reviewed: Image reviewed, Reports reviewed - Chest x-ray shows no obvious infiltrates - EKG Interpretation by Me Rate: Normal Rhythm: NSR - EKG shows normal sinus rhythm with a ventricular rate of 66, nonspecific T changes. Heart block present: 1st Degree When compared to previous EKG there are: No significant change Discharge - Discharge Clinical Impression: COPD exacerbation Condition: Stable Disposition: ADMITTED INPATIENT Admitting Provider: Hospitalist - Dr. Muniz Unit Admitted: Telemetry
[2017-06-25 22:33] LABS: ABSOLUTE EOSINOPHILS # (AUTO) 0.3 10^3/uL (0.0-0.6); ABSOLUTE LYMPHOCYTES (AUTO) 1.1 10^3/uL (0.5-4.7); ABSOLUTE NEUT (AUTO) 6.7 10^3/uL (1.7-8.2); BASOPHILS % (AUTO) 0.4 % (0-2); EOSINOPHILS % (AUTO) 2.8 % (0-6); HEMATOCRIT 46.9 % (36.0-47.0); HEMOGLOBIN 15.6 g/dL (12.0-15.5); HGB HCT DIFFERENCE -0.1; LYMPHOCYTES % (AUTO) 12.3 % (13-45); MEAN CORPUSCULAR HEMOGLOBIN 31.2 pg (27.0-33.4); MEAN CORPUSCULAR HGB CONC 33.3 g/dL (32.0-36.0); MEAN CORPUSCULAR VOLUME 94 fl (80-97); MONOCYTES % (AUTO) 11.2 % (3-13); RED CELL DISTRIBUTION WIDTH 14.4 % (11.5-14.0); SEGMENTED NEUTROPHILS % (AUTO) 73.3 % (42-78); WHITE BLOOD COUNT 9.1 10^3/uL (4.0-10.5)
[2017-06-25 22:38] LABS: ALANINE AMINOTRANSFERASE 37 U/L (9-52); ALBUMIN 3.8 g/dL (3.5-5.0); ALKALINE PHOSPHATASE 91 U/L (38-126); ANION GAP 9 (5-19); ASPARTATE AMINO TRANSFERASE 32 U/L (14-36); BILIRUBIN,DIRECT 0.4 mg/dL (0.0-0.4); BILIRUBIN,TOTAL 0.4 mg/dL (0.2-1.3); BLOOD UREA NITROGEN 10 mg/dL (7-20); CALCIUM 9.6 mg/dL (8.4-10.2); CARBON DIOXIDE 31 mmol/L (22-30); CHLORIDE 104 mmol/L (98-107); CREATINE KINASE 46 U/L (30-135); CREATININE RESULT 0.85 mg/dL (0.52-1.25); GLUCOSE 132 mg/dL (75-110); POTASSIUM 4.1 mmol/L (3.6-5.0); SODIUM 143.8 mmol/L (137-145); TOTAL PROTEIN 7.2 g/dL (6.3-8.2)
[2017-06-25 22:53] LABS: TROPONIN I < 0.012 ng/mL
[2017-06-26] MEDS ORDERED: MAGNESIUM HYDROXIDE SUSP 30 ML UDCUP PO PRN (00:54)
[2017-06-26] MEDS ORDERED: GUAIFENESIN SYRP 200 MG/10 ML UDC PO PRN (00:54)
[2017-06-26] MEDS ORDERED: CHLORPHENIRAMINE MALEATE 4 MG TABLET PO ONE (00:56)
[2017-06-26] MEDS ORDERED: ACETAMINOPHEN 325 MG TABLET PO PRN (00:57)
[2017-06-26] MEDS: AMIODARONE HCL 200 MG TABLET PO SCH (02:16)
[2017-06-26] MEDS ORDERED: TOPIRAMATE 100 MG TABLET ONE (02:55)
[2017-06-26] MEDS: TOPIRAMATE 100 MG TABLET PO SCH (03:40)
--- NOTE | 2017-06-26 04:39 | PDOC H&P ---
History of Present Illness Admission Date/PCP: 06/26/17 00:57 Patient complains of: Shortness of breath nonproductive cough History of Present Illness: NIGHAT LIVINGSTON is a 77 year old female who is a resident of [facility] with dementia, COPD and chronic bronchitis. She been her usual state of health until last 24 hours having exceptional nonproductive cough and shortness of breath prompting evaluation emergency room where she is found to have a COPD exacerbation and referred the hospitalist for admission. Patient is a very poor historian but denies pain and is awake alert and protecting her airway. Past Medical History Cardiac Medical History: Reports: Atrial Fibrillation, Congestive Heart Failure , Hypertension Pulmonary Medical History: Reports: Chronic Obstructive Pulmonary Disease (COPD) , Pneumonia - and hypoxemia Musculoskeltal Medical History: Reports: Arthritis Psychiatric Medical History: Reports: Dementia Past Surgical History Past Surgical History: Reports: Cholecystectomy, Tubal Ligation Social History Information Source: [facility] Records Lives with: Family Smoking Status: Former Smoker Frequency of Alcohol Use: None Hx Recreational Drug Use: No - she denies illegal drug use but states that she likes the smell of MJ Drugs: None Hx Prescription Drug Abuse: No - Advance Directive Resuscitation Status: Do Not Resuscitate Family History Family History: Arthritis, CAD, CVA, DM, Hypertension, Malignancy Parental Family History Reviewed: Yes Children Family History Reviewed: Yes Sibling(s) Family History Reviewed.: Yes Medication/Allergy Home Medications: Acetaminophen 500 mg PO Q4HP PRN 06/26/17 Amiodarone HCl [Amiodarone HCl] 100 mg PO DAILY 06/26/17 Aspirin [Aspirin 81 mg Chewable Tablet] 81 mg PO DAILY 06/26/17 Cetirizine HCl [Allergy Relief] 10 mg PO DAILY 06/26/17 Cholecalciferol (Vitamin D3) [Vitamin D3 2000 unit Tablet] 2,000 unit PO DAILY 06/26/17 Donepezil HCl [Donepezil HCl] 10 mg PO DAILY 06/26/17 Fluoxetine HCl [Fluoxetine HCl] 80 mg PO DAILY 06/26/17 Fluticasone Propionate [Flovent Diskus] 1 spray IH BIDP PRN 06/26/17 Guaifenesin [Mucinex] 600 mg PO Q12H 06/26/17 Guaifenesin [Robitussin Syrup 200 mg/10 ml Ud Cup] 200 mg PO QIDP PRN 06/26/17 Ipratropium/Albuterol Sulfate [Duoneb 3 ml Ampul] 3 ml NEB [id number] PRN 06/26/17 Lisinopril [Prinivil 2.5 mg Tablet] 2.5 mg PO BID 06/26/17 Loperamide HCl [Loperamide] 2 mg PO PRN PRN 06/26/17 Lorazepam [Lorazepam] 1 mg PO TID 06/26/17 Mag Hydrox/Aluminum Hyd/Simeth [Antacid Liquid] 30 ml PO Q6HP PRN 06/26/17 Magnesium Hydroxide [Milk of Magnesia] 30 ml PO QHS PRN 06/26/17 Melatonin 3 mg PO QHS 06/26/17 Montelukast Sodium [Montelukast Sodium] 10 mg PO DAILY 06/26/17 Prednisone [Prednisone] 5 mg PO DAILY 06/26/17 Propranolol HCl [Inderal 10 mg Tablet] 10 mg PO Q8 06/26/17 Topiramate [Topiramate] 25 mg PO QAM 06/26/17 Topiramate [Topiramate] 100 mg PO QHS 06/26/17 Allergies/Adverse Reactions: No Known Allergies Allergy (Unverified 11/10/15 15:12) Review of Systems ROS unobtainable: Due to mental status Physical Exam Vital Signs: Temp Pulse Resp BP Pulse Ox 98.0 F 20 142/78 H 97 06/25/17 20:48 06/26/17 04:30 06/26/17 04:15 06/26/17 04:15 General appearance: PRESENT: cooperative, disheveled, mild distress Head exam: PRESENT: atraumatic, normocephalic Eye exam: PRESENT: conjunctiva pink, EOMI, PERRLA. ABSENT: scleral icterus Ear exam: PRESENT: normal external ear exam Mouth exam: PRESENT: moist, tongue midline Neck exam: ABSENT: carotid bruit, JVD, lymphadenopathy, thyromegaly Respiratory exam: PRESENT: accessory muscle use, crackles, decreased breath sounds, prolonged expiratory phas, retraction, rhonchi, symmetrical, tachypnea. ABSENT: chest wall tenderness, clear to auscultation robbin Cardiovascular exam: PRESENT: RRR. ABSENT: diastolic murmur, rubs, systolic murmur Pulses: PRESENT: normal dorsalis pedis pul Vascular exam: PRESENT: normal capillary refill GI/Abdominal exam: PRESENT: normal bowel sounds, soft. ABSENT: distended, guarding, mass, organolmegaly, rebound, tenderness Rectal exam: PRESENT: deferred Extremities exam: PRESENT: full ROM. ABSENT: calf tenderness, clubbing, pedal edema Neurological exam: PRESENT: alert, awake, oriented to person, oriented to place , oriented to time, oriented to situation, CN II-XII grossly intact. ABSENT: motor sensory deficit Psychiatric exam: PRESENT: appropriate affect, normal mood. ABSENT: homicidal ideation, suicidal ideation Skin exam: PRESENT: dry, intact, warm. ABSENT: cyanosis, rash Results Impressions: Chest X-Ray 06/25/17 20:49 IMPRESSION: COPD. NO ACUTE RADIOGRAPHIC FINDING IN THE CHEST. Assessment & Plan - Diagnosis (1) Acute exacerbation of chronic bronchitis Is this a current diagnosis for this admission?: Yes Plan: Admission to monitored bed patient unable to participate in incentive spirometry or flutter valve. Empiric antibiotics and albuterol with Atrovent nebulizer. Follow-up CBC consider follow-up chest x-ray. (2) COPD exacerbation Is this a current diagnosis for this admission?: Yes Plan: Please see #1 (3) Dementia Is this a current diagnosis for this admission?: Yes Plan: Supportive care - Time Time Spent: 30 to 50 Minutes - Inpatient Certification Medical Necessity: Need Close Monitoring Due to Risk of Patient Decompensation
[2017-06-26] MEDS: HEPARIN SOD (PORCINE) 5,000 UNIT/ML 1 ML SYRINGE SUBCUT SCH ×3 (06:32→23:21)
--- NOTE | 2017-06-26 08:07 | EKG REPORT ---
SEVERITY:- ABNORMAL ECG - SINUS RHYTHM PROBABLE RIGHT VENTRICULAR HYPERTROPHY DIFFUSE NONSPECIFIC ST-T CHANGES : Confirmed by: Valentin Bond MD 26-Jun-2017 08:06:15
[2017-06-26] MEDS: IPRATROPIUM/ALBUTEROL 0.5-2.5 MG/3 ML AMPUL NEB PRN ×2 (08:59→23:28)
[2017-06-26] MEDS: LEVOFLOXACIN 750 MG/D5W RTU 750 MG/150 ML RTUPB IV SCH (12:11)
[2017-06-26] MEDS: FLUTICASONE NASAL SPRAY 50 MCG/SPRY 120 SPRAY/16 GM NASL SCH ×2 (12:13→17:29)
[2017-06-26] MEDS: PREDNISONE 5 MG TABLET PO SCH (12:15)
[2017-06-26] MEDS: CETIRIZINE 10 MG TABLET PO SCH (12:15)
[2017-06-26] MEDS: MONTELUKAST SODIUM 10 MG TABLET PO SCH (12:15)
[2017-06-26] MEDS: GUAIFENESIN 600 MG TABLET.SA PO SCH ×2 (12:16→23:21)
[2017-06-26] MEDS: DONEPEZIL HCL 5 MG TABLET PO SCH (12:16)
[2017-06-26] MEDS: PROPRANOLOL HCL 10 MG TABLET PO SCH ×2 (12:16→23:21)
[2017-06-26] MEDS: FLUOXETINE HCL 20 MG CAPSULE PO SCH (12:17)
[2017-06-26] MEDS: CHOLECALCIFEROL (D3) 1,000 UNIT TABLET PO SCH (12:17)
[2017-06-26] MEDS: LISINOPRIL 5 MG TABLET PO SCH ×2 (12:18→23:20)
--- NOTE | 2017-06-26 12:37 | PDOC PROGRESS REPORT ---
Subjective Progress Note for:: 06/26/17 Subjective:: Patient reports that her breathing is somewhat better today. Physical Exam Vital Signs: Temp Pulse Resp BP Pulse Ox 97.4 F 67 18 130/57 H 92 06/26/17 08:45 06/26/17 08:00 06/26/17 08:00 06/26/17 07:57 06/26/17 08:00 Intake & Output 06/25/17 06/26/17 06/27/17 06:59 06:59 06:59 Intake Total 0 Output Total 0 Balance 0 Weight 68.3 kg General appearance: PRESENT: no acute distress Eye exam: PRESENT: conjunctiva pink. ABSENT: scleral icterus Mouth exam: PRESENT: moist, tongue midline Neck exam: ABSENT: JVD Respiratory exam: PRESENT: wheezes. ABSENT: rales, rhonchi Cardiovascular exam: PRESENT: RRR. ABSENT: diastolic murmur, rubs, systolic murmur GI/Abdominal exam: PRESENT: normal bowel sounds, soft. ABSENT: distended, guarding, mass, organolmegaly, rebound, tenderness Extremities exam: ABSENT: calf tenderness, clubbing, pedal edema Neurological exam: PRESENT: alert, awake, oriented to person, oriented to place , CN II-XII grossly intact. ABSENT: oriented to time, oriented to situation, motor sensory deficit Psychiatric exam: PRESENT: appropriate affect Skin exam: PRESENT: dry, intact, warm. ABSENT: cyanosis, rash Results Impressions: Chest X-Ray 06/25/17 20:49 IMPRESSION: COPD. NO ACUTE RADIOGRAPHIC FINDING IN THE CHEST. Assessment & Plan - Diagnosis (1) COPD exacerbation Is this a current diagnosis for this admission?: Yes Plan: The patient's breathing is doing better with less wheezes today. Will continue with steroids, antibiotics and nebulizers. (2) Acute exacerbation of chronic bronchitis Is this a current diagnosis for this admission?: Yes Plan: Continue with the Levaquin. (3) Atrial fibrillation Is this a current diagnosis for this admission?: Yes Plan: Patient is in a regular rhythm today. Continue with amiodarone and propanolol. (4) Congestive heart failure Is this a current diagnosis for this admission?: Yes Plan: Patient appears to be euvolemic. (5) Dementia Is this a current diagnosis for this admission?: Yes Plan: Mild dementia. She is alert and oriented to person and place but not to time today. Continue with Aricept and Prozac. (6) Hypertension Qualifiers: Hypertension type: essential hypertension Qualified Code(s): I10 - Essential (primary) hypertension Is this a current diagnosis for this admission?: Yes Plan: Blood pressure is stable on lisinopril. - Time Time Spent with patient: 25-34 minutes - Inpatient Certification Medical Necessity: Need Close Monitoring Due to Risk of Patient Decompensation, Need for IV Antibiotics
[2017-06-26] MEDS ORDERED: TOPIRAMATE 100 MG TABLET PO ONE (23:00)
[2017-06-26] MEDS ORDERED: AMIODARONE HCL 200 MG TABLET PO ONE (23:00)
[2017-06-27 05:14] LABS: ABSOLUTE EOSINOPHILS # (AUTO) 0.1 10^3/uL (0.0-0.6); ABSOLUTE LYMPHOCYTES (AUTO) 2.3 10^3/uL (0.5-4.7); ABSOLUTE MONOCYTES (AUTO) 1.1 10^3/uL (0.1-1.4); ABSOLUTE NEUT (AUTO) 4.4 10^3/uL (1.7-8.2); BASOPHILS % (AUTO) 0.1 % (0-2); EOSINOPHILS % (AUTO) 0.9 % (0-6); HEMATOCRIT 42.6 % (36.0-47.0); HEMOGLOBIN 14.3 g/dL (12.0-15.5); HGB HCT DIFFERENCE 0.3; LYMPHOCYTES % (AUTO) 29.4 % (13-45); MEAN CORPUSCULAR HEMOGLOBIN 31.2 pg (27.0-33.4); MEAN CORPUSCULAR HGB CONC 33.6 g/dL (32.0-36.0); MEAN CORPUSCULAR VOLUME 93 fl (80-97); MONOCYTES % (AUTO) 13.6 % (3-13); RED CELL DISTRIBUTION WIDTH 14.2 % (11.5-14.0); WHITE BLOOD COUNT 7.9 10^3/uL (4.0-10.5)
[2017-06-27 05:34] LABS: ANION GAP 9 (5-19); BLOOD UREA NITROGEN 18 mg/dL (7-20); CALCIUM 9.9 mg/dL (8.4-10.2); CARBON DIOXIDE 29 mmol/L (22-30); CHLORIDE 103 mmol/L (98-107); CREATININE RESULT 0.87 mg/dL (0.52-1.25); GLUCOSE 85 mg/dL (75-110); POTASSIUM 3.8 mmol/L (3.6-5.0); SODIUM 141.3 mmol/L (137-145)
[2017-06-27] MEDS: HEPARIN SOD (PORCINE) 5,000 UNIT/ML 1 ML SYRINGE SUBCUT SCH ×3 (05:34→22:40)
[2017-06-27] MEDS: LEVOFLOXACIN 750 MG/D5W RTU 750 MG/150 ML RTUPB IV SCH (09:36)
[2017-06-27] MEDS: PROPRANOLOL HCL 10 MG TABLET PO SCH ×2 (09:37→22:30)
[2017-06-27] MEDS: PREDNISONE 5 MG TABLET PO SCH (09:38)
[2017-06-27] MEDS: CHOLECALCIFEROL (D3) 1,000 UNIT TABLET PO SCH (09:39)
[2017-06-27] MEDS: FLUTICASONE NASAL SPRAY 50 MCG/SPRY 120 SPRAY/16 GM NASL SCH ×2 (09:39→18:21)
[2017-06-27] MEDS: MONTELUKAST SODIUM 10 MG TABLET PO SCH (09:40)
[2017-06-27] MEDS: GUAIFENESIN 600 MG TABLET.SA PO SCH ×2 (09:40→22:28)
[2017-06-27] MEDS: CETIRIZINE 10 MG TABLET PO SCH (09:40)
[2017-06-27] MEDS: DONEPEZIL HCL 5 MG TABLET PO SCH (09:41)
[2017-06-27] MEDS: LISINOPRIL 5 MG TABLET PO SCH ×2 (09:41→22:28)
[2017-06-27] MEDS: FLUOXETINE HCL 20 MG CAPSULE PO SCH (09:42)
[2017-06-27] MEDS: IPRATROPIUM/ALBUTEROL 0.5-2.5 MG/3 ML AMPUL NEB PRN ×2 (11:44→22:47)
--- NOTE | 2017-06-27 13:04 | PDOC PROGRESS REPORT ---
Subjective Progress Note for:: 06/27/17 Subjective:: Complains of a nonproductive cough. Physical Exam Vital Signs: Temp Pulse Resp BP Pulse Ox 97.6 F 63 18 115/58 L 95 06/27/17 11:31 06/27/17 11:44 06/27/17 11:44 06/27/17 11:31 06/27/17 11:31 Intake & Output 06/26/17 06/27/17 06/28/17 06:59 06:59 06:59 Intake Total 0 200 Output Total 0 300 Balance 0 -100 Weight 68.3 kg 68.3 kg General appearance: PRESENT: no acute distress Eye exam: PRESENT: conjunctiva pink. ABSENT: scleral icterus Mouth exam: PRESENT: moist, tongue midline Neck exam: ABSENT: JVD Respiratory exam: PRESENT: wheezes - Few expiratory wheezes.. ABSENT: rales, rhonchi Cardiovascular exam: PRESENT: RRR. ABSENT: diastolic murmur, rubs, systolic murmur GI/Abdominal exam: PRESENT: normal bowel sounds, soft. ABSENT: distended, guarding, mass, organolmegaly, rebound, tenderness Extremities exam: ABSENT: calf tenderness, clubbing, pedal edema Neurological exam: PRESENT: alert, awake, oriented to person, oriented to place , oriented to time, oriented to situation, CN II-XII grossly intact. ABSENT: motor sensory deficit Psychiatric exam: PRESENT: appropriate affect Skin exam: PRESENT: dry, intact, warm. ABSENT: cyanosis, rash Results Laboratory Results: 06/27/17 04:46 06/27/17 04:46 06/27/17 06/27/17 04:46 04:46 WBC 7.9 RBC 4.60 Hgb 14.3 Hct 42.6 MCV 93 MCH 31.2 MCHC 33.6 RDW 14.2 H Plt Count 221 Seg Neutrophils % 56.0 Lymphocytes % 29.4 Monocytes % 13.6 H Eosinophils % 0.9 Basophils % 0.1 Absolute Neutrophils 4.4 Absolute Lymphocytes 2.3 Absolute Monocytes 1.1 Absolute Eosinophils 0.1 Absolute Basophils 0.0 Sodium 141.3 Potassium 3.8 Chloride 103 Carbon Dioxide 29 Anion Gap 9 BUN 18 Creatinine 0.87 Est GFR ( Amer) > 60 Est GFR (Non-Af Amer) > 60 Glucose 85 Calcium 9.9 Impressions: Chest X-Ray 06/25/17 20:49 IMPRESSION: COPD. NO ACUTE RADIOGRAPHIC FINDING IN THE CHEST. Assessment & Plan - Diagnosis (1) COPD exacerbation Is this a current diagnosis for this admission?: Yes Plan: The patient's breathing is doing better with less wheezes today. Will continue with steroids, antibiotics and nebulizers. (2) Acute exacerbation of chronic bronchitis Is this a current diagnosis for this admission?: Yes Plan: Continue with the Levaquin. (3) Atrial fibrillation Is this a current diagnosis for this admission?: Yes Plan: Patient is in a regular rhythm today. Continue with amiodarone and propanolol. (4) Congestive heart failure Is this a current diagnosis for this admission?: Yes Plan: Patient appears to be euvolemic. (5) Dementia Is this a current diagnosis for this admission?: Yes Plan: Mild dementia. She is alert and oriented to person and place but not to time today. Continue with Aricept and Prozac. (6) Hypertension Qualifiers: Hypertension type: essential hypertension Qualified Code(s): I10 - Essential (primary) hypertension Is this a current diagnosis for this admission?: Yes Plan: Blood pressure is stable on lisinopril. - Time Time Spent with patient: 25-34 minutes - Inpatient Certification Medical Necessity: Need Close Monitoring Due to Risk of Patient Decompensation
[2017-06-27] MEDS ORDERED: ACETAMINOPHEN 325 MG TABLET PO PRN (13:30)
[2017-06-27] MEDS ORDERED: MAGNESIUM HYDROXIDE SUSP 30 ML UDCUP PO PRN (13:30)
[2017-06-27] MEDS: AMIODARONE HCL 200 MG TABLET PO SCH (22:29)
[2017-06-27] MEDS: TOPIRAMATE 100 MG TABLET PO SCH (22:29)
[2017-06-28] MEDS: HEPARIN SOD (PORCINE) 5,000 UNIT/ML 1 ML SYRINGE SUBCUT SCH ×3 (06:34→22:50)
[2017-06-28 07:49] LABS: ABSOLUTE EOSINOPHILS # (AUTO) 0.2 10^3/uL (0.0-0.6); ABSOLUTE LYMPHOCYTES (AUTO) 1.6 10^3/uL (0.5-4.7); ABSOLUTE MONOCYTES (AUTO) 1.1 10^3/uL (0.1-1.4); ABSOLUTE NEUT (AUTO) 3.8 10^3/uL (1.7-8.2); BASOPHILS % (AUTO) 0.5 % (0-2); EOSINOPHILS % (AUTO) 3.2 % (0-6); HEMATOCRIT 43.9 % (36.0-47.0); HEMOGLOBIN 14.9 g/dL (12.0-15.5); HGB HCT DIFFERENCE 0.8; LYMPHOCYTES % (AUTO) 24.1 % (13-45); MEAN CORPUSCULAR HEMOGLOBIN 31.4 pg (27.0-33.4); MEAN CORPUSCULAR VOLUME 92 fl (80-97); MONOCYTES % (AUTO) 16.3 % (3-13); RED BLOOD COUNT 4.75 10^6/uL (3.72-5.28); RED CELL DISTRIBUTION WIDTH 14.5 % (11.5-14.0); SEGMENTED NEUTROPHILS % (AUTO) 55.9 % (42-78); WHITE BLOOD COUNT 6.7 10^3/uL (4.0-10.5)
[2017-06-28 08:13] LABS: ANION GAP 11 (5-19); BLOOD UREA NITROGEN 17 mg/dL (7-20); CALCIUM 9.7 mg/dL (8.4-10.2); CARBON DIOXIDE 29 mmol/L (22-30); CHLORIDE 101 mmol/L (98-107); CREATININE RESULT 0.99 mg/dL (0.52-1.25); GLUCOSE 99 mg/dL (75-110); POTASSIUM 3.6 mmol/L (3.6-5.0); SODIUM 140.9 mmol/L (137-145)
--- NOTE | 2017-06-28 08:29 | PDOC PROGRESS REPORT ---
Subjective Progress Note for:: 06/28/17 Subjective:: The patient reports feeling lousy. Shortness of breath slightly improved. Patient having diarrhea today. No chills or fever. No nausea or vomiting nor dizziness. No chest pain. Tolerating oral intake okay. Physical Exam Vital Signs: Temp Pulse Resp BP Pulse Ox 97.6 F 62 16 98/38 L 99 06/28/17 00:14 06/28/17 07:00 06/28/17 00:14 06/28/17 00:14 06/28/17 00:14 Intake & Output 06/27/17 06/28/17 06/29/17 06:59 06:59 06:59 Intake Total 200 2040 Output Total 300 250 Balance -100 1790 Weight 68.3 kg 68.3 kg General appearance: PRESENT: no acute distress, cooperative Head exam: PRESENT: normocephalic Eye exam: PRESENT: EOMI Mouth exam: PRESENT: moist, neck supple Neck exam: ABSENT: JVD Respiratory exam: PRESENT: unlabored, wheezes - Mild expiratory bilateral. ABSENT: rales, rhonchi Cardiovascular exam: PRESENT: irregular rhythm. ABSENT: gallop GI/Abdominal exam: PRESENT: hypoactive bowel sounds, soft. ABSENT: distended Extremities exam: ABSENT: pedal edema Neurological exam: PRESENT: alert, awake, oriented to situation Skin exam: PRESENT: dry, warm. ABSENT: cyanosis Results Laboratory Results: 06/28/17 07:35 06/28/17 07:35 06/28/17 06/28/17 07:35 07:35 WBC 6.7 RBC 4.75 Hgb 14.9 Hct 43.9 MCV 92 MCH 31.4 MCHC 34.0 RDW 14.5 H Plt Count 242 Seg Neutrophils % 55.9 Lymphocytes % 24.1 Monocytes % 16.3 H Eosinophils % 3.2 Basophils % 0.5 Absolute Neutrophils 3.8 Absolute Lymphocytes 1.6 Absolute Monocytes 1.1 Absolute Eosinophils 0.2 Absolute Basophils 0.0 Sodium 140.9 Potassium 3.6 Chloride 101 Carbon Dioxide 29 Anion Gap 11 BUN 17 Creatinine 0.99 Est GFR ( Amer) > 60 Est GFR (Non-Af Amer) 55 L Glucose 99 Calcium 9.7 Impressions: Chest X-Ray 06/25/17 20:49 IMPRESSION: COPD. NO ACUTE RADIOGRAPHIC FINDING IN THE CHEST. Assessment & Plan - Diagnosis (1) COPD exacerbation Is this a current diagnosis for this admission?: Yes (2) Chronic bronchitis Qualifiers: Chronic bronchitis type: unspecified Qualified Code(s): J42 - Unspecified chronic bronchitis Is this a current diagnosis for this admission?: Yes (3) Atrial fibrillation Qualifiers: Atrial fibrillation type: chronic Qualified Code(s): I48.2 - Chronic atrial fibrillation Is this a current diagnosis for this admission?: Yes (4) Congestive heart failure Qualifiers: Congestive heart failure type: unspecified congestive heart failure type Congestive heart failure chronicity: chronic Qualified Code(s): I50.9 - Heart failure, unspecified Is this a current diagnosis for this admission?: Yes (5) Dementia Qualifiers: Dementia type: unspecified type Dementia behavioral disturbance: without behavioral disturbance Qualified Code(s): F03.90 - Unspecified dementia without behavioral disturbance Is this a current diagnosis for this admission?: Yes (6) Hypertension Qualifiers: Hypertension type: essential hypertension Qualified Code(s): I10 - Essential (primary) hypertension Is this a current diagnosis for this admission?: Yes (7) Osteoarthritis Qualifiers: Osteoarthritis location: unspecified site Osteoarthritis type: unspecified Qualified Code(s): M19.90 - Unspecified osteoarthritis, unspecified site Is this a current diagnosis for this admission?: Yes - Time Time Spent with patient: 25-34 minutes - Plan Summary Plan Summary: We will check stool for Clostridium difficile toxin. We will hold prednisone and begin Solu-Medrol. We will give scheduled bronchodilators. Will check a urinalysis and a culture. Continue current antibiotic for now.
[2017-06-28] MEDS: IPRATROPIUM/ALBUTEROL 0.5-2.5 MG/3 ML AMPUL NEB PRN (08:35)
[2017-06-28] MEDS ORDERED: LORAZEPAM 1 MG TABLET PO SCH (10:00)
[2017-06-28] MEDS: FLUTICASONE NASAL SPRAY 50 MCG/SPRY 120 SPRAY/16 GM NASL SCH ×2 (10:03→17:14)
[2017-06-28] MEDS: METHYLPREDNISOLONE INJ 125 MG/2 ML SDV IV SCH ×3 (10:03→20:08)
[2017-06-28] MEDS: ASPIRIN 81 MG TABLET, CHEWABLE PO SCH (10:03)
[2017-06-28] MEDS: LEVOFLOXACIN 750 MG TABLET PO SCH (10:03)
[2017-06-28] MEDS: PROPRANOLOL HCL 10 MG TABLET PO SCH ×2 (10:04→22:58)
[2017-06-28] MEDS: DONEPEZIL HCL 5 MG TABLET PO SCH (10:04)
[2017-06-28] MEDS: CHOLECALCIFEROL (D3) 1,000 UNIT TABLET PO SCH (10:04)
[2017-06-28] MEDS: MONTELUKAST SODIUM 10 MG TABLET PO SCH (10:04)
[2017-06-28] MEDS: CETIRIZINE 10 MG TABLET PO SCH (10:04)
[2017-06-28] MEDS: LISINOPRIL 5 MG TABLET PO SCH ×2 (10:05→22:51)
[2017-06-28] MEDS: LACTOBACILLUS ACIDOPHILUS 250 MG TAB PO SCH ×2 (10:05→17:14)
[2017-06-28] MEDS: FLUOXETINE HCL 20 MG CAPSULE PO SCH (10:05)
[2017-06-28] MEDS: GUAIFENESIN 600 MG TABLET.SA PO SCH ×2 (10:05→22:51)
[2017-06-28] MEDS: IPRATROPIUM/ALBUTEROL 0.5-2.5 MG/3 ML AMPUL NEB SCH ×2 (13:38→20:06)
[2017-06-28] MEDS: LORAZEPAM 1 MG TABLET PO SCH ×2 (15:35→22:51)
[2017-06-28] MEDS: AMIODARONE HCL 200 MG TABLET PO SCH (22:50)
[2017-06-28] MEDS: TOPIRAMATE 100 MG TABLET PO SCH (22:51)
[2017-06-29] MEDS: IPRATROPIUM/ALBUTEROL 0.5-2.5 MG/3 ML AMPUL NEB SCH ×2 (02:06→07:59)
[2017-06-29] MEDS: METHYLPREDNISOLONE INJ 125 MG/2 ML SDV IV SCH ×2 (04:14→10:04)
[2017-06-29 05:54] LABS: ANION GAP 11 (5-19); BLOOD UREA NITROGEN 16 mg/dL (7-20); CALCIUM 9.5 mg/dL (8.4-10.2); CARBON DIOXIDE 27 mmol/L (22-30); CHLORIDE 101 mmol/L (98-107); CREATININE RESULT 0.88 mg/dL (0.52-1.25); GLUCOSE 147 mg/dL (75-110); SODIUM 138.7 mmol/L (137-145)
[2017-06-29] MEDS: HEPARIN SOD (PORCINE) 5,000 UNIT/ML 1 ML SYRINGE SUBCUT SCH (06:51)
[2017-06-29] MEDS: LORAZEPAM 1 MG TABLET PO SCH (06:51)
--- NOTE | 2017-06-29 09:16 | PDOC DISCHARGE SUMMARY ---
General - Admit/Disc Date/PCP Admission Date/Primary Care Provider: 06/26/17 00:57 Discharge Date: 06/29/17 - Discharge Diagnosis (1) COPD exacerbation Is this a current diagnosis for this admission?: Yes (2) Chronic bronchitis Is this a current diagnosis for this admission?: Yes (3) Atrial fibrillation Is this a current diagnosis for this admission?: Yes (4) Congestive heart failure Is this a current diagnosis for this admission?: Yes (5) Dementia Is this a current diagnosis for this admission?: Yes (6) Hypertension Is this a current diagnosis for this admission?: Yes (7) Osteoarthritis Is this a current diagnosis for this admission?: Yes - Additional Information Resuscitation Status: Do Not Resuscitate Discharge Diet: Cardiac - Low-fat low-salt Discharge Activity: Activity As Tolerated, Balance Activity w/Rest Home Medications: Acetaminophen 500 mg PO Q4HP PRN 06/26/17 Amiodarone HCl 100 mg PO QHS 06/26/17 Aspirin [Aspirin 81 mg Chewable Tablet] 81 mg PO DAILY 06/26/17 Cetirizine HCl [Allergy Relief] 10 mg PO DAILY 06/26/17 Cholecalciferol (Vitamin D3) [Vitamin D3 2000 unit Tablet] 2,000 unit PO DAILY 06/26/17 Donepezil HCl 10 mg PO DAILY 06/26/17 Fluoxetine HCl 80 mg PO DAILY 06/26/17 Fluticasone Propionate [Flovent Diskus] 1 spray NASL BIDP PRN 06/26/17 Guaifenesin [Mucinex] 600 mg PO Q12 06/26/17 Guaifenesin [Robitussin Syrup 200 mg/10 ml Ud Cup] 200 mg PO QIDP PRN 06/26/17 Ipratropium/Albuterol Sulfate [Duoneb 3 ml Ampul] 3 ml NEB [id number] PRN 06/26/17 Lisinopril [Prinivil 2.5 mg Tablet] 2.5 mg PO BID 06/26/17 Loperamide HCl [Loperamide] 2 mg PO DAILYP PRN 06/26/17 Mag Hydrox/Aluminum Hyd/Simeth [Antacid Liquid] 30 ml PO Q6HP PRN 06/26/17 Magnesium Hydroxide [Milk of Magnesia] 30 ml PO QHS PRN 06/26/17 Melatonin 3 mg PO QHS 06/26/17 Montelukast Sodium 10 mg PO QPM 06/26/17 Prednisone 5 mg PO DAILY 06/26/17 Topiramate 25 mg PO QAM 06/26/17 Topiramate 100 mg PO QHS 06/26/17 Ipratropium/Albuterol Sulfate [Duoneb 3 ml Ampul] 3 ml NEB RTQ6 #120 vial.neb Levofloxacin [Levaquin 750 mg Tablet] 750 mg PO DAILY #7 tablet 06/29/17 Lorazepam [Ativan 1 mg Tablet] 0.5 mg PO Q8 #15 tablet 06/29/17 Prednisone [Sterapred Ds] 1 pkg PO ASDIR PRN 12 Days tab.ds.pk 06/29/17 Propranolol HCl [Inderal 10 mg Tablet] 10 mg PO Q12 tablet 06/29/17 Additional Information: Return to the emergency room if symptoms recur. Hold 5 mg of prednisone daily while on Sterapred. Resume prednisone 5 mg orally daily once Sterapred completed. History of Present Illness Patient complains of: Shortness of breath History of Present Illness: NIGHAT LIVINGSTON is a 77 year old female who is a resident of [facility] with dementia, COPD and chronic bronchitis. She been her usual state of health until last 24 hours having exceptional nonproductive cough and shortness of breath prompting evaluation emergency room where she is found to have a COPD exacerbation and referred the hospitalist for admission. Patient is a very poor historian but denies pain and is awake alert and protecting her airway. For details patient refer to history and physical examination performed by the admitting physician. Hospital Course Hospital Course: The patient was admitted to telemetry. The patient was started on intravenous steroids, as needed bronchodilators, and antibiotics. Culture was performed and the date was negative. Patient has minimal stress response to treatment after the next day and therefore steroids doses were increased. She was resumed back on her medication benzodiazepine at a lower dose, and scheduled bronchodilators were placed. Patient significantly improved after that measure. She was maintained on nasal cannula oxygen and reports that she is on it at home at [facility]. The patient improved. She wanted requested to be discharged back to [facility] to complete treatment. The rest of the hospital stays unremarkable. Patient was eventually transferred back to long- term care facility for continued treatment and care and advised to return to the hospital symptoms recur or worsens. Physical Exam Vital Signs: Temp Pulse Resp BP Pulse Ox 97.6 F 65 16 110/66 95 06/29/17 03:50 06/29/17 08:00 06/29/17 08:00 06/29/17 03:50 06/29/17 08:00 Intake & Output 06/28/17 06/29/17 06/30/17 06:59 06:59 06:59 Intake Total 2040 810 Output Total 250 Balance 1790 810 Weight 68.3 kg 66.3 kg General appearance: PRESENT: no acute distress, cooperative, other - On nasal cannula oxygen at 2 L Head exam: PRESENT: normocephalic Eye exam: PRESENT: conjunctiva pink, EOMI Mouth exam: PRESENT: moist, neck supple Neck exam: ABSENT: JVD Respiratory exam: PRESENT: clear to auscultation robbin. ABSENT: rhonchi, wheezes Cardiovascular exam: PRESENT: RRR. ABSENT: gallop GI/Abdominal exam: PRESENT: normal bowel sounds, soft. ABSENT: distended Extremities exam: PRESENT: other - Trace pretibial edema. ABSENT: pedal edema Neurological exam: PRESENT: alert, awake, oriented to situation Psychiatric exam: ABSENT: agitated Focused psych exam: ABSENT: restlessness Skin exam: PRESENT: dry, warm. ABSENT: cyanosis Results Laboratory Results: 06/28/17 07:35 06/29/17 04:05 06/29/17 04:05 Sodium 138.7 Potassium 4.0 Chloride 101 Carbon Dioxide 27 Anion Gap 11 BUN 16 Creatinine 0.88 Est GFR ( Amer) > 60 Est GFR (Non-Af Amer) > 60 Glucose 147 H Calcium 9.5 Impressions: Chest X-Ray 06/25/17 20:49 IMPRESSION: COPD. NO ACUTE RADIOGRAPHIC FINDING IN THE CHEST. Qualifiers PATEINT BEING DISCHARGED WITH ANY OF THE FOLLOWING DIAGNOSIS?: No Plan Discharge Plan: Follow-up with primary care physician in 1 week. Time Spent: Less than 30 Minutes
[2017-06-29 09:45] VITALS: BP 115/57
[2017-06-29] MEDS: ASPIRIN 81 MG TABLET, CHEWABLE PO SCH (09:52)
[2017-06-29] MEDS: LEVOFLOXACIN 750 MG TABLET PO SCH (09:52)
[2017-06-29] MEDS: CETIRIZINE 10 MG TABLET PO SCH (09:52)
[2017-06-29] MEDS: GUAIFENESIN 600 MG TABLET.SA PO SCH (09:52)
[2017-06-29] MEDS: CHOLECALCIFEROL (D3) 1,000 UNIT TABLET PO SCH (09:52)
[2017-06-29] MEDS: FLUOXETINE HCL 20 MG CAPSULE PO SCH (09:52)
[2017-06-29] MEDS: DONEPEZIL HCL 5 MG TABLET PO SCH (09:52)
[2017-06-29] MEDS: FLUTICASONE NASAL SPRAY 50 MCG/SPRY 120 SPRAY/16 GM NASL SCH (10:00)
[2017-06-29] MEDS: LACTOBACILLUS ACIDOPHILUS 250 MG TAB PO SCH (10:00)
[2017-06-29] MEDS: LISINOPRIL 5 MG TABLET PO SCH (10:07)
[2017-06-29] MEDS: PROPRANOLOL HCL 10 MG TABLET PO SCH (10:08)
[2017-06-29] MEDS: MONTELUKAST SODIUM 10 MG TABLET PO SCH (10:09)
== END 2017-06-29 14:02 | disposition short-term general hospital (02) | DRG 192 ==
LOC: ER 20:41 → EH 06-26 00:57 → 5 06-26 04:38
PROVIDERS: ADMIT Internal Medicine; ATTEND Internal Medicine
PROC: 3E0F73Z Introduction of Anti-inflammatory into Respiratory Tract, Via Natural or Artificial Opening (ICD-10-PCS; principal; 2017-06-26)
DX: J44.1 Chronic obstructive pulmonary disease with (acute) exacerbation (principal); I48.91 Unspecified atrial fibrillation; M19.90 Unspecified osteoarthritis, unspecified site; F03.90 Unspecified dementia, unspecified severity, without behavioral disturbance, psychotic disturbance, mood disturbance, and anxiety; I11.0 Hypertensive heart disease with heart failure; I50.9 Heart failure, unspecified; Z66 Do not resuscitate; Z79.899 Other long term (current) drug therapy; Z79.82 Long term (current) use of aspirin; Z98.51 Tubal ligation status; Z87.891 Personal history of nicotine dependence; Z83.3 Family history of diabetes mellitus; Z86.73 Personal history of transient ischemic attack (TIA), and cerebral infarction without residual deficits; Z80.9 Family history of malignant neoplasm, unspecified
CPT/HCPCS: 36415; 71010; 80048; 80053; 82550; 82553; 83880; 84484; 85025; 87040; 93005; 93010; 94640; 96365; 99285; J0696; J1644; J1956; J2930; J3490; J7512; J7620

== ENCOUNTER 2017-11-20 08:57 | Inpatient (IN) | payer MEDICARE, MEDICAID ==
[2017-11-20 09:32] LABS: ABSOLUTE EOSINOPHILS # (AUTO) 0.5 10^3/uL (0.0-0.6); ABSOLUTE MONOCYTES (AUTO) 1.1 10^3/uL (0.1-1.4); ABSOLUTE NEUT (AUTO) 5.3 10^3/uL (1.7-8.2); BASOPHILS % (AUTO) 0.4 % (0-2); EOSINOPHILS % (AUTO) 4.6 % (0-6); HEMATOCRIT 45.9 % (36.0-47.0); HEMOGLOBIN 14.8 g/dL (12.0-15.5); LYMPHOCYTES % (AUTO) 30.1 % (13-45); MEAN CORPUSCULAR HEMOGLOBIN 30.3 pg (27.0-33.4); MEAN CORPUSCULAR HGB CONC 32.3 g/dL (32.0-36.0); MEAN CORPUSCULAR VOLUME 94 fl (80-97); MONOCYTES % (AUTO) 11.4 % (3-13); PLATELET COUNT 251 10^3/uL (150-450); RED BLOOD COUNT 4.88 10^6/uL (3.72-5.28); RED CELL DISTRIBUTION WIDTH 14.2 % (11.5-14.0); SEGMENTED NEUTROPHILS % (AUTO) 53.5 % (42-78); TOTAL CELLS COUNTED % (AUTO) 100 %; WHITE BLOOD COUNT 9.9 10^3/uL (4.0-10.5)
[2017-11-20 09:33] LABS: VENOUS BLOOD BASE EXCESS 2.5 mmol/L; VENOUS BLOOD HCO3 32.4 mmol/L (20-32); VENOUS BLOOD PH 7.24 (7.30-7.42)
--- NOTE | 2017-11-20 09:35 | RADIOLOGY REPORT (SQ) ---
EXAM DESCRIPTION: CHEST SINGLE VIEW COMPLETED DATE/TIME: 11/20/2017 9:24 am REASON FOR STUDY: bed 1 sepsis protocol COMPARISON: 06/25/2017. NUMBER OF VIEWS: One view. TECHNIQUE: Single frontal radiographic view of the chest acquired. LIMITATIONS: None. FINDINGS: LUNGS AND PLEURA: No opacities, masses or pneumothorax. No pleural effusion. Attenuated bl ood vessels and flattened sean-diaphragms. MEDIASTINUM AND HILAR STRUCTURES: No masses. Contour normal. HEART AND VASCULAR STRUCTURES: Heart normal in size. Normal vasculature. BONES: No acute findings. HARDWARE: None in the chest. OTHER: No other significant finding. IMPRESSION: COPD. NO ACUTE RADIOGRAPHIC FINDING IN THE CHEST. TECHNICAL DOCUMENTATION: JOB ID: [id number] [employer]- All Rights Reserved Reading location - IP/workstation name: [email or web address]
[2017-11-20 09:43] LABS: INTERNATIONAL RATION (INR) 0.86; PROTHROMBIN TIME 12.3 SEC (11.4-15.4)
[2017-11-20 09:51] LABS: ALANINE AMINOTRANSFERASE 58 U/L (9-52); ALBUMIN 3.6 g/dL (3.5-5.0); ALKALINE PHOSPHATASE 65 U/L (38-126); ANION GAP 9 (5-19); ASPARTATE AMINO TRANSFERASE 39 U/L (14-36); BILIRUBIN,DIRECT 0.4 mg/dL (0.0-0.4); BILIRUBIN,TOTAL 0.4 mg/dL (0.2-1.3); BLOOD UREA NITROGEN 12 mg/dL (7-20); CALCIUM 9.4 mg/dL (8.4-10.2); CARBON DIOXIDE 28 mmol/L (22-30); CHLORIDE 103 mmol/L (98-107); GLUCOSE 109 mg/dL (75-110); SODIUM 140.4 mmol/L (137-145); TOTAL PROTEIN 6.2 g/dL (6.3-8.2)
[2017-11-20 10:45] LABS: CREATINE KINASE MB 3.86 ng/mL (<4.55)
[2017-11-20 10:48] LABS: TROPONIN I 0.351 ng/mL
[2017-11-20] MEDS ORDERED: ASPIRIN 81 MG TABLET, CHEWABLE PO ONE (10:49)
--- NOTE | 2017-11-20 10:51 | EKG REPORT ---
SEVERITY:- ABNORMAL ECG - SINUS RHYTHM RIGHT AXIS DEVIATION LOW VOLTAGE IN FRONTAL LEADS ABNORMAL T, PROBABLE ISCHEMIA, ANT-LAT LEADS PROLONGED QT INTERVAL : Confirmed by: Mau Perea 20-Nov-2017 10:51:00
[2017-11-20] MEDS ORDERED: HEPARIN SOD (PORCINE) 1,000 UNIT/ML 10 ML VIAL IV ONE (11:09)
--- NOTE | 2017-11-20 11:35 | ER Document Report ---
ED Respiratory Problem - General Chief Complaint: Breathing Difficulty Stated Complaint: DIFFICULTY BREATHING Time Seen by Provider: 11/20/17 09:09 Mode of Arrival: Medic Information source: Patient Notes: Patient is a 77-year-old female with COPD, dementia who presents to the ER today from [facility] for increased shortness of breath over the past day. Patient states she woke up this morning with more shortness of breath, took inhalers that she has but they did not help. Patient is on oxygen at night only. Patient has not had fever that halfway or patient knows about. Patient is a DNR. Patient has been admitted here multiple times for pneumonia. No history of heart attack or stroke. Patient denies any chest pain. TRAVEL OUTSIDE OF THE [place] IN LAST 30 DAYS: No - Related Data Allergies/Adverse Reactions: No Known Allergies Allergy (Verified 11/20/17 09:13) Past Medical History - General Information source: Patient, Outside Facility Records - Social History Smoking Status: Current Every Day Smoker Chew tobacco use (# tins/day): No Frequency of alcohol use: None Drug Abuse: None Family History: Arthritis, CAD, CVA, DM, Hypertension, Malignancy Patient has suicidal ideation: No Patient has homicidal ideation: No - Past Medical History Cardiac Medical History: Reports: Hx Atrial Fibrillation, Hx Congestive Heart Failure, Hx Hypertension Pulmonary Medical History: Reports: Hx COPD, Hx Pneumonia - and hypoxemia Renal/ Medical History: Denies: Hx Peritoneal Dialysis GI Medical History: Reports: Hx Gastritis Musculoskeltal Medical History: Reports Hx Arthritis Psychiatric Medical History: Reports: Hx Dementia Past Surgical History: Reports: Hx Cholecystectomy, Hx Oral Surgery, Hx Tubal Ligation - Immunizations Immunizations up to date: Yes Hx Diphtheria, Pertussis, Tetanus Vaccination: Yes - unknown Review of Systems - Review of Systems Constitutional: No symptoms reported EENT: No symptoms reported Cardiovascular: No symptoms reported Respiratory: See HPI Gastrointestinal: No symptoms reported Genitourinary: No symptoms reported Female Genitourinary: No symptoms reported Musculoskeletal: No symptoms reported Skin: No symptoms reported Hematologic/Lymphatic: No symptoms reported Neurological/Psychological: No symptoms reported Physical Exam - Vital signs Vitals: Temp Pulse Resp BP Pulse Ox 97.5 F 65 22 H 100/65 90 L 11/20/17 09:09 11/20/17 09:09 11/20/17 09:09 11/20/17 09:09 11/20/17 09:09 - Notes Notes: PHYSICAL EXAMINATION: GENERAL: Short of breath, and mild acute distress HEAD: Atraumatic, normocephalic. EYES: Pupils equal round and reactive to light, extraocular movements intact, sclera anicteric, conjunctiva are normal. ENT: ear canals without erythema or foreign body, TMs pearly lujan with good bony landmarks, nares patent, oropharynx clear without exudates. Moist mucous membranes. NECK: Normal range of motion, supple without lymphadenopathy LUNGS: Increased work of breathing, increased work of intercostal muscles, mild to moderate expiratory wheezing throughout, no rales or rhonchi. HEART: Chest nontender to palpation, regular rate and rhythm without murmurs ABDOMEN: Soft, no tenderness. No guarding, no rebound BACK: no vertebral tenderness, normal ROM GI/: no CVA tenderness EXTREMITIES: Normal range of motion, no pitting edema. No cyanosis. NEUROLOGICAL: Cranial nerves grossly intact. Normal sensory/motor exams. PSYCH: Normal mood, normal affect. SKIN: Warm, Dry, normal turgor, no rashes or lesions noted Course - Re-evaluation Re-evalutation: 11/20/17 11:34 Patient feels better after Solu-Medrol given on ambulance, breathing treatments given here, chest x-ray reports no acute pathology, EKG reports some ST segment depressions in V3 through V6, this is new since EKG recently in June. Troponin is 0.351. Patient vital signs are stable. Daughter, Conchita Lang, does not want cardiac cath, pt does not want cardiac cath performed, heparin started at this time, aspirin given, pt is a DNR. Dr. Perea, cardiology agrees to keep here, Dr. Muniz agrees to admit. 11/20/17 21:53 - Vital Signs Vital signs: Temp Pulse Resp BP Pulse Ox 97.6 F 71 16 97/60 L 98 11/20/17 19:00 11/20/17 19:00 11/20/17 19:00 11/20/17 19:00 11/20/17 19:00 - Laboratory Result Diagrams: 11/20/17 09:10 11/20/17 09:10 Laboratory results interpreted by me: 11/20/17 11/20/17 11/20/17 09:10 09:10 09:10 RDW 14.2 H VBG pH 7.24 L VBG pCO2 77.0 H* VBG HCO3 32.4 H Est GFR (Non-Af Amer) 55 L AST 39 H ALT 58 H Total Protein 6.2 L Discharge - Discharge Clinical Impression: NSTEMI (non-ST elevated myocardial infarction) Condition: Stable Disposition: ADMITTED INPATIENT Admitting Provider: [facility] Admitted: Telemetry
[2017-11-20] MEDS ORDERED: (PENDING PHARMACY ID) (Acetaminophen [Acetaminophen] 500 MG) PO PRN (11:38)
[2017-11-20] MEDS ORDERED: IPRATROPIUM/ALBUTEROL 0.5-2.5 MG/3 ML AMPUL NEB ONE (12:22)
[2017-11-20] MEDS ORDERED: ATORVASTATIN CALCIUM 40 MG TABLET PO ONE (13:00)
[2017-11-20] MEDS: LORAZEPAM 1 MG TABLET PO SCH ×2 (13:39→21:17)
--- NOTE | 2017-11-20 13:43 | RADIOLOGY REPORT (SQ) ---
EXAM DESCRIPTION: CTA CHEST COMPLETED DATE/TIME: 11/20/2017 1:32 pm REASON FOR STUDY: sob, elevated trop COMPARISON: None. TECHNIQUE: CT scan of the chest performed using helical scanning technique with dynamic intravenous contrast injection. Images reviewed with lung, soft tissue and bone windows. Reconstructed coronal and sagittal MPR images reviewed. Additional 3 dimensional post-processing performed to develop Maximal Intensity Projection images (MD P). All images stored on PACS. All CT scanners at this facility use dose modulation, iterative reconstruction, and/or weight based d osing when appropriate to reduce radiation dose to as low as reasonably achievable (ALARA). [facility]: Dose Right [facility]: CareDose [facility]: Dose Right [facility]: Teradose 4D [facility]: Semanticator CONTRAST TYPE AND DOSE: contrast/concentration: Isovue 370.00 mg/ml; Total Contrast Delivered: 64.0 ml; Total Saline Delivered: 105.1 ml Contrast bolus optimized for the pulmonary arteries. Not diagnostic for the aorta. RENAL FUNCTION: BUN 12 creatinine 0.98. RADIATION DOSE: CT Rad equipment meets quality standard of care and radiation dose reduction techniq ues were employed. CTDIvol: 14.3 - 16.5 mGy. DLP: 542 mGy-cm. . LIMITATIONS: None. FINDINGS: LUNGS AND PLEURA: No masses, infiltrates, pneumothorax. No pleural effusions, calcificati ons. AORTA AND GREAT VESSELS: No aneurysm. Contrast bolus not optimized for the aorta. HEART: No pericardial effusion. No significant coronary artery calcifications. PULMONARY ARTERIES: No emboli visualized in the main pulmonary arteries or the segmental branches. HILAR AND MEDIASTINAL STRUCTURES: No identified masses or abnormal nodes. HARDWARE: None in the chest. UPPER ABDOMEN: No significant findings. Limited exam. THYROID AND OTHER SOFT TISSUES: No masses. No adenopathy. BONES: No acute or significant finding. 3D MIPS: Confirm above findings. OTHER: No other significant finding. IMPRESSION: NORMAL CTA OF THE CHEST. NO PULMONARY EMBOLI. COMMENT: Quality ID # [id number]: Final reports with documentation of one or more dose reduction techniques (e.g., Automated exposure control, adjustment of the mA and/or kV according to patient size, use of iterative reconstruction technique) TECHNICAL DOCUMENTATION: JOB ID: [id number] [employer]- All Rights Reserved Reading location - IP/workstation name: [email or web address]
[2017-11-20 13:47] LABS: APPEARANCE,URINE CLEAR; BILIRUBIN,URINE NEGATIVE (NEGATIVE); COLOR,URINE YELLOW; GLUCOSE, URINE NEGATIVE (NEGATIVE); KETONES,URINE NEGATIVE (NEGATIVE); LEUKOCYTE ESTERASE,URINE NEGATIVE (NEGATIVE); NITRITE,URINE NEGATIVE (NEGATIVE); PROTEIN,URINE NEGATIVE (NEGATIVE); URINE SPECIFIC GRAVITY 1.012; UROBILINOGEN,URINE NEGATIVE mg/dL (<2.0)
[2017-11-20] MEDS ORDERED: ACETAMINOPHEN 325 MG TABLET PO PRN (15:31)
[2017-11-20 15:41] LABS: TROPONIN I 0.373 ng/mL
[2017-11-20] MEDS ORDERED: FENTANYL CITRATE INJ/PF 100 MCG/2 ML AMPUL IV PRN (15:41)
--- NOTE | 2017-11-20 15:53 | PDOC CONSULTATION ---
Consultation Consult Date: 11/20/17 Attending physician:: EILEEN VILLALBA Consult reason:: Non-STEMI History of Present Illness Admission Date/PCP: 11/20/17 12:37 NOEL NAVARRO NP Patient complains of: Shortness of breath History of Present Illness: NIGHAT LIVINGSTON is a 77 year old female, who presents to the emergency department with this of breath for last several days. Patient has also noted cough with sputum production. Patient claims to be smoking 1 cigarette a day. On repeated questioning patient denied any chest pain. Twelve-lead EKG had shown symmetrical T-wave inversion anterior precordial leads consistent with ischemia. Subsequently troponin I came back elevated in the non-STEMI range. Patient currently DNR. It seems the ER physician had talked with patient's daughter, and they want to be patient medically managed. Patient herself declines to pursue any invasive evaluation. She claims to be feeling fine except for some shortness of breath. Patient denied any fever or chills. Past Medical History Cardiac Medical History: Reports: Atrial Fibrillation, Congestive Heart Failure , Hypertension Pulmonary Medical History: Reports: Chronic Obstructive Pulmonary Disease (COPD) , Pneumonia - and hypoxemia Musculoskeltal Medical History: Reports: Arthritis Psychiatric Medical History: Reports: Dementia Past Surgical History Past Surgical History: Reports: Cholecystectomy, Tubal Ligation Social History Information Source: Patient Smoking Status: Current Every Day Smoker Frequency of Alcohol Use: None Hx Recreational Drug Use: No - she denies illegal drug use but states that she likes the smell of MJ Drugs: None Hx Prescription Drug Abuse: No - Advance Directive Resuscitation Status: Do Not Resuscitate Surrogate healthcare decision maker:: Patient's daughter is the surrogate decision-maker Family History Family History: Arthritis, CAD, CVA, DM, Hypertension, Malignancy Parental Family History Reviewed: Yes Children Family History Reviewed: Yes Sibling(s) Family History Reviewed.: Yes Medication/Allergy Home Medications: Acetaminophen [Mapap] 500 mg PO Q4HP PRN 11/20/17 Acetaminophen [Tylenol 650 mg Supp] 650 mg SD Q4HP PRN 11/20/17 Amiodarone HCl [Pacerone] 100 mg PO QHS 11/20/17 Aspirin [Aspirin 81 mg Chewable Tablet] 81 mg PO DAILY 11/20/17 Atropine Sulfate [Atropine 1% Oph Soln 5 ml] 4 drop SL Q2HP PRN 11/20/17 Cetirizine HCl [Zyrtec] 10 mg PO DAILY 11/20/17 Cholecalciferol (Vitamin D3) [Vitamin D3 2000 unit Tablet] 2,000 unit PO DAILY 11/20/17 Diazepam [Valium 5 mg Tablet] 5 mg PO Q6HP PRN 11/20/17 Donepezil HCl [Aricept] 10 mg PO DAILY 11/20/17 Fluoxetine HCl [Prozac] 80 mg PO DAILY 11/20/17 Fluticasone Propionate [Flonase Nasal Lyons 50 Mcg/Lyons 16 gm] 1 spray NAREB Q12HP PRN 11/20/17 Guaifenesin [Mucinex] 600 mg PO Q12 11/20/17 Guaifenesin [Robafen] 200 mg PO QIDP PRN 11/20/17 Haloperidol [Haldol 0.5 mg Tablet] 0.5 mg PO Q4HP PRN 11/20/17 Ipratropium/Albuterol Sulfate [Duoneb 3 ml Ampul] 3 ml NEB Q6 11/20/17 Ipratropium/Albuterol Sulfate [Duoneb 3 ml Ampul] 3 ml NEB [id number] PRN 11/20/17 Lisinopril [Prinivil 2.5 mg Tablet] 2.5 mg PO Q12 11/20/17 Loperamide HCl [Loperamide] 2 mg PO DAILYP PRN 11/20/17 Lorazepam [Ativan 1 mg Tablet] 0.5 mg PO Q8 11/20/17 Mag Hydrox/Al Hydrox/Simeth [Maalox Plus Susp 30 Udcup] 30 ml PO Q6 PRN Magnesium Hydroxide [Milk of Magnesia] 2,400 mg PO HSP PRN 11/20/17 Melatonin [Melatonin 3 mg Tablet] 3 mg PO QHS 11/20/17 Montelukast Sodium [Singulair 10 mg Tablet] 10 mg PO QHS 11/20/17 Pravastatin Sodium [Pravachol] 10 mg PO QHS 11/20/17 Prednisone [Deltasone 5 mg Tablet] 5 mg PO DAILY 11/20/17 Propranolol HCl [Inderal 10 mg Tablet] 10 mg PO Q12 11/20/17 Topiramate [Topamax 100 Mg Tablet] 100 mg PO QHS 11/20/17 Topiramate [Topamax 25 mg Tablet] 25 mg PO DAILY 11/20/17 Allergies/Adverse Reactions: No Known Allergies Allergy (Verified 11/20/17 09:13) Review of Systems ROS unobtainable: Due to mental status Physical Exam Vital Signs: Temp Pulse Resp BP Pulse Ox 97.5 F 65 22 H 100/65 90 L 11/20/17 09:09 11/20/17 09:09 11/20/17 09:09 11/20/17 09:09 11/20/17 09:09 Exam: GENERAL: well-nourished and in no acute distress. Alert and oriented x2. Patient also noted to be pleasantly confused. HEAD: Atraumatic, normocephalic. EYES: Pupils equal round and reactive to light, extraocular movements intact, sclera anicteric, conjunctiva are normal. ENT: TMs normal, nares patent, oropharynx clear without exudates. Moist mucous membranes. No oral ulcerations or bleeding gums noted NECK: supple without lymphadenopathy. Trachea is central. No cervical or axillary lymphadenopathy noted. Carotids are 2+, JVD WNL LUNGS: Respiration seems nonlabored, no significant accessory muscle action noted. Breath sounds clear to auscultation bilaterally and equal noted. No wheezes rales or rhonchi noted. No significant dullness noted on percussion. CHEST: Palpation of the chest wall shows no significant chest wall tenderness. No other significant abnormalities noted. HEART: [place] [employer], No PSH, 1/6 JOSE GUADALUPE aortic area, 1/6 alvarez systolic murmur mitral area, no rubs, no gallops. ABDOMEN: Soft, no significant tenderness appreciated, normoactive bowel sounds. No guarding, no rebound. No rigidity noted . No masses appreciated. EXTREMITIES: Pedal pulses are 1-2+, no calf tenderness noted. No clubbing or cyanosis.trace to 1+ pedal edema noted NEUROLOGICAL: Focused neurological exam showed no significant neurologic deficit. Normal speech, no focal weakness appreciated. PSYCH: Normal mood, normal affect. Judgment could not be checked because of dementia. SKIN: No significant ecchymosis, skin is noted to be warm. MUSCULOSKELETAL EXAM: No significant acute joint swelling noted. Results Laboratory Results: 11/20/17 12:50 Urine Color YELLOW Urine Appearance CLEAR Urine pH 5.0 Ur Specific [place] 1.012 Urine Protein NEGATIVE Urine Glucose (UA) NEGATIVE Urine Ketones NEGATIVE Urine Blood SMALL H Urine Nitrite NEGATIVE Ur Leukocyte Esterase NEGATIVE Urine WBC (Auto) 1 Urine RBC (Auto) 0 11/20/17 14:45 CK-MB (CK-2) 4.00 Troponin I 0.373 EKG Comments: Twelve-lead EKG shows sinus rhythm with symmetrical T-wave inversion anterior precordial leads consistent with ischemia. Impressions: Chest X-Ray 11/20/17 08:58 IMPRESSION: COPD. NO ACUTE RADIOGRAPHIC FINDING IN THE CHEST. Chest/Abdomen CTA 11/20/17 11:33 IMPRESSION: NORMAL CTA OF THE CHEST. NO PULMONARY EMBOLI. Assessment & Plan - Diagnosis (1) NSTEMI (non-ST elevated myocardial infarction) Is this a current diagnosis for this admission?: Yes (2) Dyslipidemia Is this a current diagnosis for this admission?: Yes (3) Acute exacerbation of chronic bronchitis Is this a current diagnosis for this admission?: Yes (4) Altered mental state Qualifiers: Altered mental status type: disorientation Qualified Code(s): R41.0 - Disorientation, unspecified Is this a current diagnosis for this admission?: Yes (5) Atrial fibrillation Qualifiers: Atrial fibrillation type: paroxysmal Qualified Code(s): I48.0 - Paroxysmal atrial fibrillation Is this a current diagnosis for this admission?: Yes (6) Congestive heart failure Qualifiers: Qualified Code(s): I50.9 - Heart failure, unspecified Is this a current diagnosis for this admission?: No (7) Hypertension Qualifiers: Hypertension type: essential hypertension Qualified Code(s): I10 - Essential (primary) hypertension Is this a current diagnosis for this admission?: Yes - Notes Notes: Non-STEMI: Patient ruled in for non-STEMI. Patient has positive enzyme and EKG changes indicative of it. At this point family and patient request medical management. They do not want to pursue heart catheterization. Patient will be placed on heparin aspirin, Plavix, statins. Beta-blockers will be gradually instituted as patient is stabilized. Dyslipidemia: Agree with statin therapy. Patient has been started on Lipitor. Acute exacerbation of chronic bronchitis: Patient has a history of smoking. Recommend antibiotic therapy. CHF: Patient has a history of it. Currently no evidence of ongoing CHF. Observe patient for it. Coronary artery disease: Patient noted to have significant coronary calcification therefore does have CAD. Dementia: Patient noted to be pleasantly confused. Continue patient's dementia medications. - Time Time Spent: 30 to 50 Minutes - CODE STATUS : was discussed, patient remains DO NOT RESUSCITATE. Surrogate decision-maker unchanged. Multiple medical problems were addressed. More than 50% of the time spent coordinating care, discussing management plans with involved caregivers. Management plans discussed with involved personnels. Medical decision making was of moderate to high complexity, patient's has multiple comorbidities. Medications reviewed and adjusted accordingly: Yes
[2017-11-20] MEDS ORDERED: FAMOTIDINE 20 MG TABLET PO ONE (17:00)
[2017-11-20] MEDS: HEPARIN SODIUM,PORCINE/D5W 25,000 UNIT/250 ML RTUINJ IV PRN (17:07)
--- NOTE | 2017-11-20 18:44 | PDOC H&P ---
History of Present Illness Admission Date/PCP: 11/20/17 12:37 NOEL NAVARRO NP Patient complains of: Shortness of breath History of Present Illness: NIGHAT LIVINGSTON is a 77 year old female shelter resident who presents to the emergency department with this of breath for last several days. Patient has also noted cough with clear sputum production. Patient claims to be smoking 1 cigarette a day however patient is a poor historian. She denies any chest pain. Twelve-lead EKG had shown symmetrical T-wave inversion anterior precordial leads consistent with ischemia. Subsequently troponin I came back elevated in the non-STEMI range. Patient currently DNR. The ER provider had talked with patient's daughter, and they want to be patient medically managed. Patient herself declines to pursue any invasive evaluation. She claims to be feeling fine except for some shortness of breath. Patient denied any fever or chills. Past Medical History Cardiac Medical History: Reports: Atrial Fibrillation, Congestive Heart Failure , Hypertension Pulmonary Medical History: Reports: Chronic Obstructive Pulmonary Disease (COPD) , Pneumonia - and hypoxemia Musculoskeltal Medical History: Reports: Arthritis Psychiatric Medical History: Reports: Dementia Past Surgical History Past Surgical History: Reports: Cholecystectomy, Tubal Ligation Social History Information Source: Emergency Med Personnel, [facility] Records, Outside Facility Records Smoking Status: Current Every Day Smoker Frequency of Alcohol Use: None Hx Recreational Drug Use: No - she denies illegal drug use but states that she likes the smell of MJ Drugs: None Hx Prescription Drug Abuse: No - Advance Directive Resuscitation Status: Do Not Resuscitate Family History Family History: Arthritis, CAD, CVA, DM, Hypertension, Malignancy Parental Family History Reviewed: Yes Children Family History Reviewed: Yes Sibling(s) Family History Reviewed.: Yes Medication/Allergy Home Medications: Acetaminophen [Mapap] 500 mg PO Q4HP PRN 11/20/17 Acetaminophen [Tylenol 650 mg Supp] 650 mg OH Q4HP PRN 11/20/17 Amiodarone HCl [Pacerone] 100 mg PO QHS 11/20/17 Aspirin [Aspirin 81 mg Chewable Tablet] 81 mg PO DAILY 11/20/17 Atropine Sulfate [Atropine 1% Oph Soln 5 ml] 4 drop SL Q2HP PRN 11/20/17 Cetirizine HCl [Zyrtec] 10 mg PO DAILY 11/20/17 Cholecalciferol (Vitamin D3) [Vitamin D3 2000 unit Tablet] 2,000 unit PO DAILY 11/20/17 Diazepam [Valium 5 mg Tablet] 5 mg PO Q6HP PRN 11/20/17 Donepezil HCl [Aricept] 10 mg PO DAILY 11/20/17 Fluoxetine HCl [Prozac] 80 mg PO DAILY 11/20/17 Fluticasone Propionate [Flonase Nasal [place] 50 Mcg/[place] 16 gm] 1 spray NAREB Q12HP PRN 11/20/17 Guaifenesin [Mucinex] 600 mg PO Q12 11/20/17 Guaifenesin [Robafen] 200 mg PO QIDP PRN 11/20/17 Haloperidol [Haldol 0.5 mg Tablet] 0.5 mg PO Q4HP PRN 11/20/17 Ipratropium/Albuterol Sulfate [Duoneb 3 ml Ampul] 3 ml NEB Q6 11/20/17 Ipratropium/Albuterol Sulfate [Duoneb 3 ml Ampul] 3 ml NEB [id number] PRN 11/20/17 Lisinopril [Prinivil 2.5 mg Tablet] 2.5 mg PO Q12 11/20/17 Loperamide HCl [Loperamide] 2 mg PO DAILYP PRN 11/20/17 Lorazepam [Ativan 1 mg Tablet] 0.5 mg PO Q8 11/20/17 Mag Hydrox/Al Hydrox/Simeth [Maalox Plus Susp 30 Udcup] 30 ml PO Q6 PRN Magnesium Hydroxide [Milk of Magnesia] 2,400 mg PO HSP PRN 11/20/17 Melatonin [Melatonin 3 mg Tablet] 3 mg PO QHS 11/20/17 Montelukast Sodium [Singulair 10 mg Tablet] 10 mg PO QHS 11/20/17 Pravastatin Sodium [Pravachol] 10 mg PO QHS 11/20/17 Prednisone [Deltasone 5 mg Tablet] 5 mg PO DAILY 11/20/17 Propranolol HCl [Inderal 10 mg Tablet] 10 mg PO Q12 11/20/17 Topiramate [Topamax 100 Mg Tablet] 100 mg PO QHS 11/20/17 Topiramate [Topamax 25 mg Tablet] 25 mg PO DAILY 11/20/17 Allergies/Adverse Reactions: No Known Allergies Allergy (Verified 11/20/17 09:13) Review of Systems ROS unobtainable: Due to mental status Physical Exam Vital Signs: Temp Pulse Resp BP Pulse Ox 97.5 F 65 22 H 110/73 96 11/20/17 09:09 11/20/17 09:09 11/20/17 09:09 11/20/17 16:06 11/20/17 18:00 General appearance: PRESENT: cooperative, mild distress Head exam: PRESENT: atraumatic, normocephalic Eye exam: PRESENT: conjunctiva pink, EOMI, PERRLA. ABSENT: scleral icterus Ear exam: PRESENT: normal external ear exam Mouth exam: PRESENT: dry mucosa Neck exam: ABSENT: carotid bruit, JVD, lymphadenopathy, thyromegaly Respiratory exam: PRESENT: clear to auscultation robbin, crackles, prolonged expiratory phas. ABSENT: rales, rhonchi, wheezes Cardiovascular exam: PRESENT: RRR. ABSENT: diastolic murmur, rubs, systolic murmur Pulses: PRESENT: normal dorsalis pedis pul Vascular exam: PRESENT: normal capillary refill GI/Abdominal exam: PRESENT: normal bowel sounds, soft. ABSENT: distended, guarding, mass, organolmegaly, rebound, tenderness Rectal exam: PRESENT: deferred Extremities exam: PRESENT: full ROM. ABSENT: calf tenderness, clubbing, pedal edema Neurological exam: PRESENT: alert, awake, oriented to person, CN II-XII grossly intact. ABSENT: motor sensory deficit Psychiatric exam: PRESENT: appropriate affect, normal mood. ABSENT: homicidal ideation, suicidal ideation Skin exam: PRESENT: dry, intact, warm. ABSENT: cyanosis, rash Results Laboratory Results: 11/20/17 12:50 Urine Color YELLOW Urine Appearance CLEAR Urine pH 5.0 Ur Specific [place] 1.012 Urine Protein NEGATIVE Urine Glucose (UA) NEGATIVE Urine Ketones NEGATIVE Urine Blood SMALL H Urine Nitrite NEGATIVE Ur Leukocyte Esterase NEGATIVE Urine WBC (Auto) 1 Urine RBC (Auto) 0 11/20/17 14:45 CK-MB (CK-2) 4.00 Troponin I 0.373 Impressions: Chest X-Ray 11/20/17 08:58 IMPRESSION: COPD. NO ACUTE RADIOGRAPHIC FINDING IN THE CHEST. Chest/Abdomen CTA 11/20/17 11:33 IMPRESSION: NORMAL CTA OF THE CHEST. NO PULMONARY EMBOLI. Assessment & Plan - Diagnosis (1) NSTEMI (non-ST elevated myocardial infarction) Is this a current diagnosis for this admission?: Yes Plan: Conservative management, aspirin, heparin, beta-manoj as tolerated. Cardiology consult (2) Acute exacerbation of chronic bronchitis Is this a current diagnosis for this admission?: Yes Plan: Incentive spirometry, flutter valve, Flonase and chlorpheniramine empiric antibiotics (3) COPD exacerbation Is this a current diagnosis for this admission?: Yes Plan: Please see #2. - Time Time Spent: 50 to 70 Minutes - Inpatient Certification Medical Necessity: Need Close Monitoring Due to Risk of Patient Decompensation
[2017-11-20] MEDS: FAMOTIDINE 20 MG TABLET PO SCH (21:17)
[2017-11-20] MEDS: ATORVASTATIN CALCIUM 20 MG TABLET PO SCH (21:17)
[2017-11-20] MEDS: AMIODARONE HCL 200 MG TABLET PO SCH (21:17)
--- NOTE | 2017-11-20 21:57 | EKG REPORT ---
SEVERITY:- ABNORMAL ECG - SINUS RHYTHM RIGHT AXIS DEVIATION LOW VOLTAGE IN FRONTAL LEADS ABNORMAL T, PROBABLE ISCHEMIA, WIDESPREAD PROLONGED QT INTERVAL : Confirmed by: Mau Perea 20-Nov-2017 21:56:52
--- NOTE | 2017-11-20 21:57 | EKG REPORT ---
SEVERITY:- ABNORMAL ECG - SINUS RHYTHM LEFT ATRIAL ABNORMALITY RIGHT AXIS DEVIATION ABNORMAL T, PROBABLE ISCHEMIA, ANT-LAT LEADS PROLONGED QT : Confirmed by: Mau Perea 20-Nov-2017 21:56:35
[2017-11-20] MEDS ORDERED: (PENDING PHARMACY ID) (Amiodarone Hcl [Amiodarone Hcl] 100 MG) PO SCH (22:00)
[2017-11-20 22:25] LABS: CREATINE KINASE MB 3.36 ng/mL (<4.55)
[2017-11-20 22:43] LABS: TROPONIN I 0.265 ng/mL
[2017-11-20] MEDS ORDERED: HEPARIN SOD (PORCINE) 1,000 UNIT/ML 10 ML VIAL ONE (23:22)
[2017-11-21] MEDS ORDERED: ALBUTEROL SULFATE 0.083% NEB 2.5 MG/3 ML AMPUL NEB PRN (01:19)
[2017-11-21] MEDS: IPRATROPIUM/ALBUTEROL 0.5-2.5 MG/3 ML AMPUL NEB SCH ×4 (02:14→19:33)
[2017-11-21 04:28] LABS: HEMATOCRIT 39.4 % (36.0-47.0); MEAN CORPUSCULAR HEMOGLOBIN 30.4 pg (27.0-33.4); MEAN CORPUSCULAR HGB CONC 33.1 g/dL (32.0-36.0); MEAN CORPUSCULAR VOLUME 92 fl (80-97); PLATELET COUNT 210 10^3/uL (150-450); RED BLOOD COUNT 4.28 10^6/uL (3.72-5.28); RED CELL DISTRIBUTION WIDTH 14.2 % (11.5-14.0); WHITE BLOOD COUNT 8.2 10^3/uL (4.0-10.5)
[2017-11-21 05:09] LABS: CREATINE KINASE MB 3.67 ng/mL (<4.55)
[2017-11-21 05:13] LABS: TROPONIN I 0.265 ng/mL
[2017-11-21 05:26] LABS: ANION GAP 8 (5-19); BLOOD UREA NITROGEN 15 mg/dL (7-20); CALCIUM 9.5 mg/dL (8.4-10.2); CARBON DIOXIDE 27 mmol/L (22-30); CHLORIDE 108 mmol/L (98-107); CREATINE KINASE 73 U/L (30-135); GLUCOSE 116 mg/dL (75-110); POTASSIUM 4.1 mmol/L (3.6-5.0); SODIUM 143.3 mmol/L (137-145)
[2017-11-21] MEDS: LORAZEPAM 1 MG TABLET PO SCH (05:40)
[2017-11-21] MEDS: LORAZEPAM 0.5 MG TABLET PO SCH ×3 (06:10→21:31)
[2017-11-21] MEDS ORDERED: CLOPIDOGREL BISULFATE 300 MG TABLET PO SCH (10:00)
[2017-11-21] MEDS: ASPIRIN 81 MG TABLET, CHEWABLE PO SCH (10:55)
[2017-11-21] MEDS: DOCUSATE SODIUM 100 MG CAPSULE PO SCH (10:55)
[2017-11-21] MEDS: FAMOTIDINE 20 MG TABLET PO SCH ×2 (10:55→21:31)
[2017-11-21] MEDS: PREDNISONE 5 MG TABLET PO SCH (10:55)
--- NOTE | 2017-11-21 11:37 | Physician Advisory Note ---
Physician Advisor ProgressNote .: [facility], I have reviewed the medical record for this patient. Physician Advisor Statement: H&P nicely documents increased work of breathing, wheezing. Pt w/O2 sat only 90% on 2L, when normally on no O2 during the day. No tachycardia w/this, but on Inderal which suppresses tachycardia. Please consider documenting, if you agree: 1. "Acute hypercarbic respiratory failure" (ABG is enough to support this dx) 2. "chronic CHF, suspect ___ type" (systolic? diastolic? ...) 3. "paroxysmal Afib" - or - "Chronic Afib" 4. Medical necessity: "This patient needs to stay in hospital a 2nd night because " - Nursing eval this AM indicates pt still w/rhonchi, intermittent cough. - Pt still w/persistent hypotension, has been started on Duonebs, scheduled Ativan, prn albuterol this AM. Status: AMI, &/or acute bronchitis, frequently can be d/c'd home the next day, so in a Medicare pt such as this, should be Obs to start unless/until attending documents clinical reason for 2nd MN. Thanks! CK
[2017-11-21] MEDS ORDERED: CLOPIDOGREL BISULFATE 75 MG TABLET PO ONE (12:00)
--- NOTE | 2017-11-21 13:26 | EKG REPORT ---
SEVERITY:- ABNORMAL ECG - SINUS RHYTHM VENTRICULAR PREMATURE COMPLEX RIGHT AXIS DEVIATION ABNORMAL T, CONSIDER ISCHEMIA, DIFFUSE LEADS PROLONGED QT INTERVAL : Confirmed by: Valentin Bond MD 21-Nov-2017 13:26:12
--- NOTE | 2017-11-21 15:11 | PDOC PROGRESS REPORT ---
Subjective Progress Note for:: 11/21/17 Subjective:: The patient is an elderly female with a long smoking history. He presented to the hospital with acute respiratory failure with both hypercarbia and hypoxia. She was found to have evidence of a non-ST elevation myocardial infarction as well as acute bronchitis. The patient is DNR. She does not want any aggressive interventions for the myocardial infarction. The patient and family have opted for medical management. Dr. Perea is following the patient. Reason For Visit: ACS,PE,SOB,DEMENTIA,DNR Physical Exam Vital Signs: Temp Pulse Resp BP Pulse Ox 97.7 F 71 18 114/55 L 94 11/21/17 11:16 11/21/17 14:00 11/21/17 13:56 11/21/17 11:16 11/21/17 13:56 Intake & Output 11/20/17 11/21/17 11/22/17 06:59 06:59 06:59 Intake Total 175 Balance 175 Weight 68 kg Additional comments: The patient is a thin, elderly female. She does not appear to be in very good general health. She gets confused at times. However, she is able to follow commands. Her facial appearance is unremarkable. Her lungs demonstrate wheezing both anteriorly and posteriorly. Her cardiac exam is regular without murmurs, gallops or rubs. The abdomen is thin and soft. Bowel sounds are present. She does not have guarding or rebound noted and there are no hernias or masses present. The lower extremities are thin without pitting edema. The skin is clean, warm dry and intact without lesions or rashes. Results Laboratory Results: 11/21/17 04:04 11/21/17 04:04 11/21/17 11/21/17 04:04 04:04 WBC 8.2 RBC 4.28 Hgb 13.0 Hct 39.4 MCV 92 MCH 30.4 MCHC 33.1 RDW 14.2 H Plt Count 210 Sodium 143.3 Potassium 4.1 Chloride 108 H Carbon Dioxide 27 Anion Gap 8 BUN 15 Creatinine 0.92 Est GFR ( Amer) > 60 Est GFR (Non-Af Amer) 59 L Glucose 116 H Calcium 9.5 11/20/17 12:50 Clean Catch Midstream Urine Culture - Final Mixed Urogenital Donna 11/20/17 11/20/17 11/21/17 14:45 21:45 04:04 Creatine Kinase CK-MB (CK-2) 4.00 3.36 3.67 Troponin I 0.373 0.265 0.265 11/21/17 04:04 Creatine Kinase 73 CK-MB (CK-2) Troponin I Impressions: Chest X-Ray 11/20/17 08:58 IMPRESSION: COPD. NO ACUTE RADIOGRAPHIC FINDING IN THE CHEST. Chest/Abdomen CTA 11/20/17 11:33 IMPRESSION: NORMAL CTA OF THE CHEST. NO PULMONARY EMBOLI. Assessment & Plan - Diagnosis (1) Acute respiratory failure with hypoxia and hypercarbia Is this a current diagnosis for this admission?: Yes Plan: Continue supplemental oxygen. The patient likely has a component of chronic hypercarbic respiratory failure. She does not appear to warrant noninvasive ventilation at this time. (2) NSTEMI (non-ST elevated myocardial infarction) Is this a current diagnosis for this admission?: Yes Plan: Continue with medical management per cardiology. Patient is currently on a heparin drip, aspirin and plavix. She is not on a beta manoj. She is receiving amiodarone. Dr. Perea's assistance is greatly appreciated. (3) Acute exacerbation of chronic bronchitis Is this a current diagnosis for this admission?: Yes Plan: Continue bronchodilators. I agree with adding antibiotics and prednisone. (4) Atrial fibrillation Is this a current diagnosis for this admission?: Yes Plan: Patient is on heparin drip. Cardiology is following. Patient is on amiodarone. (5) Altered mental state Qualifiers: Altered mental status type: disorientation Qualified Code(s): R41.0 - Disorientation, unspecified Is this a current diagnosis for this admission?: Yes Plan: Patient has underlying dementia. (6) COPD exacerbation Is this a current diagnosis for this admission?: Yes Plan: See above. Continue bronchodilators. Will add low-dose steroids and will add antibiotics. (7) Congestive heart failure (CHF) Is this a current diagnosis for this admission?: Yes Plan: Presumed systolic. We have ordered an echocardiogram for further delineation. - Time Time Spent with patient: 25-34 minutes - Inpatient Certification Medical Necessity: Need For Continuous Telemetry Monitoring, Need for Nebulizer Therapy and Monitoring of Response, Risk of Complication if Not Cared For in Hospital, Risk of Diagnosis Which Will Require Inpatient Eval/Care/Monitoring - Plan Summary Plan Summary: The patient will require at least another 24 hours in the hospital. Her respiratory status has not yet been optimized. She is still requiring supplemental oxygen. In addition, she needs further risk factor assessment regarding the non-ST elevation myocardial infarction, atrial fibrillation and congestive heart failure. Currently, she is requiring an IV heparin drip. She is not appropriate for discharge from the hospital at this time until we can change all of her therapies to oral and again we have a better idea of her risk assessment.
[2017-11-21] MEDS ORDERED: AMOXICILLIN TRIHYDRATE 500 MG CAPSULE PO ONE (16:00)
[2017-11-21] MEDS ORDERED: PREDNISONE 20 MG TABLET PO SCH (18:00)
--- NOTE | 2017-11-21 18:44 | XCELERA REPORT ---
[address] [address] Transthoracic Echocardiogram Report Name: NIGHAT LIVINGSTON Age: 77 yrs Gender: Female : 1940 Patient Status: Inpatient Patient Location: [address] [place], [place] [address] Study Date: 11/21/2017 01:34 PM Height: 65 in Weight: 140 lb BSA: 1.7 m2 Procedure: A complete two-dimensional transthoracic echocardiogram was performed (2D, M-mode, spectral and color flow Doppler). The study was technically adequate with some images being suboptimal in quality. Reason For Study: Non-STEMI Ordering Physician: MAU RIZZO Performed By: Corby Chester Interpretation Summary The Ejection Fraction estimate is 35-40% Left ventricular systolic function is moderately reduced. There is borderline concentric left ventricular hypertrophy. The left ventricle is grossly normal size. Doppler measurements suggest pseudonormalized left ventricular relaxation, which is associated with grade II/IV or mild to moderate diastolic dysfunction There is apical wall akinesis There is mid to distal anterior wall moderate hypokinesis The right ventricular systolic function is normal. The right atrium is normal in size Borderline left atrial enlargement. There is a trace amount of mitral regurgitation There is no mitral valve stenosis. No aortic regurgitation is present. There is no aortic valve stenosis There is a trace or physiologic amount of tricuspid regurgitation Tricuspid regurgitation jet envelope not well defined to measure RV systolic pressure accurately. There is a mild amount of pulmonic regurgitation The pulmonic valve is not well visualized. The aortic root is not well visualized. The inferior vena cava appeared normal and decreased > 50% with respiration (RAP 5-10 mmHg) Minimal pericardial effusion. MMode/2D Measurements & Calculations RVDd: 3.0 cm LVIDd: 5.2 cm FS: 30.6 % Ao root diam: 2.9 cm IVSd: 1.0 cm LVIDs: 3.6 cm EDV(Teich): 127.8 ml LVPWd: 1.0 cm ESV(Teich): 54.0 ml Ao root area: 6.7 cm2 EF(Teich): 57.7 % Doppler Measurements & Calculations MV E max todd: MV dec slope: Ao V2 max: LV V1 max P.3 cm/sec 143.3 cm/sec 3.7 mmHg MV A max todd: 186.8 cm/sec2 Ao max PG: LV V1 max: 68.8 cm/sec MV dec time: 8.2 mmHg 96.7 cm/sec MV E/A: 0.88 0.32 sec PA V2 max: PI end-d todd: TR max todd: 71.2 cm/sec 112.3 cm/sec 254.2 cm/sec PA max PG: TR max P.0 mmHg 25.8 mmHg Left Ventricle The left ventricle is grossly normal size. There is borderline concentric left ventricular hypertrophy. Left ventricular systolic function is moderately reduced. The Ejection Fraction estimate is 35-40%. Doppler measurements suggest pseudonormalized left ventricular relaxation, which is associated with grade II/IV or mild to moderate diastolic dysfunction. There is apical wall akinesis. There is mid to distal anterior wall moderate hypokinesis. Right Ventricle The right ventricle is grossly normal size. There is normal right ventricular wall thickness. The right ventricular systolic function is normal. Atria The right atrium is normal in size. Borderline left atrial enlargement. Interarterial septum not well visualized and not well dopplered. Cannot comment on ASD/PFO presence. Mitral Valve The mitral valve is grossly normal. There is no mitral valve stenosis. There is a trace amount of mitral regurgitation. Aortic Valve The aortic valve is grossly normal. There is no aortic valve stenosis. No aortic regurgitation is present. Tricuspid Valve The tricuspid valve is not well visualized secondary to technical limitations. There is no tricuspid stenosis. There is a trace or physiologic amount of tricuspid regurgitation. Tricuspid regurgitation jet envelope not well defined to measure RV systolic pressure accurately. Pulmonic Valve The pulmonic valve is not well visualized. There is a mild amount of pulmonic regurgitation. Great Vessels The aortic root is not well visualized. The inferior vena cava appeared normal and decreased > 50% with respiration (RAP 5-10 mmHg). Effusions Minimal pericardial effusion. : MAU RIZZO > Mau Rizzo
--- NOTE | 2017-11-21 20:32 | PDOC PROGRESS REPORT ---
Subjective Progress Note for:: 11/21/17 Subjective:: Patient seems to be doing better with gradual improvement. Pt is denying any chest arm or neck discomfort. Patient denying any PND, orthopnea. Patient denied any sustained palpitations, dizziness, syncope, near syncope. Patient denying any fever chills. Patient denying any other significant discomfort. Patient however remains pleasantly confused. Patient is maintaining sinus rhythm. Review of systems: Rest review of systems negative. Medications: Medications have been reviewed. Reason For Visit: ACS,PE,SOB,DEMENTIA,DNR Physical Exam Vital Signs: Temp Pulse Resp BP Pulse Ox 97.4 F 59 L 17 97/45 L 100 11/21/17 15:50 11/21/17 15:50 11/21/17 15:50 11/21/17 15:50 11/21/17 15:50 Intake & Output 11/20/17 11/21/17 11/22/17 06:59 06:59 06:59 Intake Total 175 739 Balance 175 739 Weight 68 kg Exam: GENERAL: well-nourished and in no acute distress. Alert and oriented x2 HEAD: Atraumatic, normocephalic. EYES: Pupils equal round and reactive to light, extraocular movements intact, sclera anicteric, conjunctiva are normal. ENT: TMs normal, nares patent, oropharynx clear without exudates. Moist mucous membranes. No oral ulcerations or bleeding gums noted NECK: supple without lymphadenopathy. Trachea is central. No cervical or axillary lymphadenopathy noted. Carotids are 2+, JVD WNL LUNGS: Respiration seems nonlabored, no significant accessory muscle action noted. Breath sounds clear to auscultation bilaterally and equal noted. No wheezes rales or rhonchi noted. No significant dullness noted on percussion. CHEST: Palpation of the chest wall shows no significant chest wall tenderness. No other significant abnormalities noted. 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 ABDOMEN: Soft, no significant tenderness appreciated, normoactive bowel sounds. No guarding, no rebound. No rigidity noted . No masses appreciated. EXTREMITIES: Pedal pulses are 1-2+, no calf tenderness noted. No clubbing or cyanosis.trace pedal edema noted NEUROLOGICAL: Focused neurological exam showed no significant neurologic deficit. Normal speech, no focal weakness appreciated. PSYCH: Normal mood, normal affect. Judgment and insight within normal limits. SKIN: No significant ecchymosis, skin is noted to be warm. MUSCULOSKELETAL EXAM: No significant acute joint swelling noted. Results Laboratory Results: 11/21/17 04:04 11/21/17 04:04 11/21/17 11/21/17 04:04 04:04 WBC 8.2 RBC 4.28 Hgb 13.0 Hct 39.4 MCV 92 MCH 30.4 MCHC 33.1 RDW 14.2 H Plt Count 210 Sodium 143.3 Potassium 4.1 Chloride 108 H Carbon Dioxide 27 Anion Gap 8 BUN 15 Creatinine 0.92 Est GFR ( Amer) > 60 Est GFR (Non-Af Amer) 59 L Glucose 116 H Calcium 9.5 11/20/17 12:50 Clean Catch Midstream Urine Culture - Final Mixed Urogenital Donna 11/20/17 11/20/17 11/21/17 14:45 21:45 04:04 Creatine Kinase CK-MB (CK-2) 4.00 3.36 3.67 Troponin I 0.373 0.265 0.265 11/21/17 04:04 Creatine Kinase 73 CK-MB (CK-2) Troponin I Impressions: Chest X-Ray 11/20/17 08:58 IMPRESSION: COPD. NO ACUTE RADIOGRAPHIC FINDING IN THE CHEST. Chest/Abdomen CTA 11/20/17 11:33 IMPRESSION: NORMAL CTA OF THE CHEST. NO PULMONARY EMBOLI. Assessment & Plan - Diagnosis (1) NSTEMI (non-ST elevated myocardial infarction) Is this a current diagnosis for this admission?: Yes (2) Dyslipidemia Is this a current diagnosis for this admission?: Yes (3) Acute exacerbation of chronic bronchitis Is this a current diagnosis for this admission?: Yes (4) Altered mental state Qualifiers: Altered mental status type: disorientation Qualified Code(s): R41.0 - Disorientation, unspecified Is this a current diagnosis for this admission?: Yes (5) Atrial fibrillation Qualifiers: Atrial fibrillation type: paroxysmal Qualified Code(s): I48.0 - Paroxysmal atrial fibrillation Is this a current diagnosis for this admission?: Yes (6) Congestive heart failure Is this a current diagnosis for this admission?: No (7) Hypertension Qualifiers: Hypertension type: essential hypertension Qualified Code(s): I10 - Essential (primary) hypertension Is this a current diagnosis for this admission?: Yes - Notes Notes: Non-STEMI: Patient ruled in for non-STEMI. Patient has positive enzyme and EKG changes indicative of it. At this point family and patient request medical management. They do not want to pursue heart catheterization. Continue patient on heparin, aspirin, Plavix, statins. Beta-blockers will be gradually instituted as patient is stabilized. Dyslipidemia: Agree with statin therapy. Patient has been started on Lipitor. Acute exacerbation of chronic bronchitis: Patient has a history of smoking. Recommend antibiotic therapy. CHF: Patient has a history of it. Currently no evidence of ongoing CHF. Observe patient for it. Coronary artery disease: Patient noted to have significant coronary calcification therefore does have CAD. Dementia: Patient noted to be pleasantly confused. Continue patient's dementia medications. 2D echocardiogram shows moderately depressed LVEF with distal anterior wall and apical akinesia. No significant valvular abnormalities were noted. - Time Time with patient: Greater than 35 minutes - CODE STATUS was discussed, patient remains DNR. Surrogate decision-maker not identified. Multiple medical problems were addressed. More than 50% of the time spent coordinating care, discussing management plans with involved caregivers. Management plans discussed with involved personnels. Medical decision making was of moderate to high complexity, patient's has multiple comorbidities. Medications reviewed and adjusted accordingly: Yes
[2017-11-21] MEDS: ATORVASTATIN CALCIUM 20 MG TABLET PO SCH (21:31)
[2017-11-21] MEDS: AMOXICILLIN TRIHYDRATE 500 MG CAPSULE PO SCH (21:31)
[2017-11-21] MEDS: AMIODARONE HCL 200 MG TABLET PO SCH (21:31)
[2017-11-21] MEDS: HEPARIN SODIUM,PORCINE/D5W 25,000 UNIT/250 ML RTUINJ IV PRN (23:13)
[2017-11-22] MEDS: IPRATROPIUM/ALBUTEROL 0.5-2.5 MG/3 ML AMPUL NEB SCH ×4 (01:04→20:23)
[2017-11-22] MEDS: LORAZEPAM 0.5 MG TABLET PO SCH ×3 (05:52→21:39)
[2017-11-22] MEDS: AMOXICILLIN TRIHYDRATE 500 MG CAPSULE PO SCH ×2 (05:52→15:49)
[2017-11-22 07:15] LABS: ABSOLUTE LYMPHOCYTES (AUTO) 1.1 10^3/uL (0.5-4.7); ABSOLUTE MONOCYTES (AUTO) 0.7 10^3/uL (0.1-1.4); ABSOLUTE NEUT (AUTO) 4.6 10^3/uL (1.7-8.2); BASOPHILS % (AUTO) 0.1 % (0-2); EOSINOPHILS % (AUTO) 0.1 % (0-6); HEMATOCRIT 41.7 % (36.0-47.0); HEMOGLOBIN 13.6 g/dL (12.0-15.5); LYMPHOCYTES % (AUTO) 17.2 % (13-45); MEAN CORPUSCULAR HEMOGLOBIN 30.2 pg (27.0-33.4); MEAN CORPUSCULAR HGB CONC 32.6 g/dL (32.0-36.0); MEAN CORPUSCULAR VOLUME 93 fl (80-97); MONOCYTES % (AUTO) 11.4 % (3-13); PLATELET COUNT 217 10^3/uL (150-450); RED CELL DISTRIBUTION WIDTH 14.5 % (11.5-14.0); SEGMENTED NEUTROPHILS % (AUTO) 71.2 % (42-78); TOTAL CELLS COUNTED % (AUTO) 100 %; WHITE BLOOD COUNT 6.5 10^3/uL (4.0-10.5)
[2017-11-22 07:32] LABS: ANION GAP 9 (5-19); BLOOD UREA NITROGEN 16 mg/dL (7-20); CALCIUM 9.4 mg/dL (8.4-10.2); CARBON DIOXIDE 29 mmol/L (22-30); CHLORIDE 101 mmol/L (98-107); GLUCOSE 102 mg/dL (75-110); POTASSIUM 4.1 mmol/L (3.6-5.0); SODIUM 138.9 mmol/L (137-145)
[2017-11-22 07:40] LABS: APPEARANCE,URINE CLEAR; BILIRUBIN,URINE NEGATIVE (NEGATIVE); COLOR,URINE YELLOW; GLUCOSE, URINE NEGATIVE (NEGATIVE); KETONES,URINE NEGATIVE (NEGATIVE); LEUKOCYTE ESTERASE,URINE NEGATIVE (NEGATIVE); NITRITE,URINE NEGATIVE (NEGATIVE); PROTEIN,URINE NEGATIVE (NEGATIVE); URINE SPECIFIC GRAVITY 1.016; UROBILINOGEN,URINE NEGATIVE mg/dL (<2.0)
[2017-11-22] MEDS: DOCUSATE SODIUM 100 MG CAPSULE PO SCH (10:23)
[2017-11-22] MEDS: PREDNISONE 5 MG TABLET PO SCH (10:23)
[2017-11-22] MEDS: FAMOTIDINE 20 MG TABLET PO SCH ×2 (10:23→21:39)
[2017-11-22] MEDS: ASPIRIN 81 MG TABLET, CHEWABLE PO SCH (10:23)
[2017-11-22] MEDS: CLOPIDOGREL BISULFATE 75 MG TABLET PO SCH (10:23)
--- NOTE | 2017-11-22 16:11 | PDOC PROGRESS REPORT ---
Subjective Progress Note for:: 11/22/17 Subjective:: Patient refers that he is having chest pressure and shortness of breath. Patient states that she continues smoking but had cut down to 1 or 2 cigarettes a day. Nurse reports that patient had been on hospice because of her frequent visits to the hospital due to her lungs. Review of systems All organ systems evaluated and negative except as in subjective All significant laboratories and diagnostics have been reviewed Reason For Visit: ACS,PE,SOB,DEMENTIA,DNR Physical Exam Vital Signs: Temp Pulse Resp BP Pulse Ox 98.4 F 64 17 95/47 L 98 11/21/17 23:54 11/22/17 02:00 11/22/17 01:04 11/21/17 23:54 11/22/17 02:07 Intake & Output 11/21/17 11/22/17 11/23/17 06:59 06:59 06:59 Intake Total 175 1240 Balance 175 1240 Weight 68 kg 67.8 kg General appearance: PRESENT: cooperative, thin Head exam: PRESENT: atraumatic, normocephalic Eye exam: PRESENT: conjunctiva pink, EOMI, PERRLA Ear exam: PRESENT: normal external ear exam Mouth exam: PRESENT: moist Neck exam: PRESENT: full ROM. ABSENT: JVD, tenderness Respiratory exam: PRESENT: decreased breath sounds, wheezes Cardiovascular exam: PRESENT: irregular rhythm. ABSENT: diastolic murmur, systolic murmur Vascular exam: PRESENT: normal capillary refill GI/Abdominal exam: PRESENT: normal bowel sounds, soft. ABSENT: tenderness Extremities exam: PRESENT: full ROM. ABSENT: pedal edema Musculoskeletal exam: PRESENT: ambulatory Neurological exam: PRESENT: alert, awake, oriented to person, oriented to place , oriented to time, oriented to situation, CN II-XII grossly intact Psychiatric exam: PRESENT: appropriate affect, normal mood Skin exam: PRESENT: dry, normal color Results Laboratory Results: 11/22/17 06:26 11/22/17 06:26 WBC 6.5 RBC 4.50 Hgb 13.6 Hct 41.7 MCV 93 MCH 30.2 MCHC 32.6 RDW 14.5 H Plt Count 217 Seg Neutrophils % 71.2 Lymphocytes % 17.2 Monocytes % 11.4 Eosinophils % 0.1 Basophils % 0.1 Absolute Neutrophils 4.6 Absolute Lymphocytes 1.1 Absolute Monocytes 0.7 Absolute Eosinophils 0.0 Absolute Basophils 0.0 11/20/17 12:50 Clean Catch Midstream Urine Culture - Final Mixed Urogenital Donna 11/20/17 11/20/17 11/21/17 14:45 21:45 04:04 Creatine Kinase CK-MB (CK-2) 4.00 3.36 3.67 Troponin I 0.373 0.265 0.265 11/21/17 04:04 Creatine Kinase 73 CK-MB (CK-2) Troponin I Impressions: Chest X-Ray 11/20/17 08:58 IMPRESSION: COPD. NO ACUTE RADIOGRAPHIC FINDING IN THE CHEST. Chest/Abdomen CTA 11/20/17 11:33 IMPRESSION: NORMAL CTA OF THE CHEST. NO PULMONARY EMBOLI. Assessment & Plan - Diagnosis (1) Acute respiratory failure with hypoxia and hypercarbia Is this a current diagnosis for this admission?: Yes Plan: Improved (2) Atrial fibrillation Is this a current diagnosis for this admission?: Yes Plan: Stable (3) NSTEMI (non-ST elevated myocardial infarction) Is this a current diagnosis for this admission?: Yes Plan: Due to myocardial demand ischemia (4) Acute exacerbation of chronic bronchitis Is this a current diagnosis for this admission?: Yes Plan: To place on spiriva, advair, zithromax and solumedrol - Time Time Spent with patient: 15-24 minutes Medications reviewed and adjusted accordingly: Yes Anticipated discharge: Home Within: within 48 hours - Inpatient Certification Based on my medical assessment, after consideration of the patient's comorbidities, presenting symptoms, or acuity I expect that the services needed warrant INPATIENT care.: Yes I certify that my determination is in accordance with my understanding of Medicare's requirements for reasonable and necessary INPATIENT services [42 CFR 412.3e].: Yes Medical Necessity: Need for Nebulizer Therapy and Monitoring of Response
[2017-11-22] MEDS ORDERED: PREDNISONE 5 MG TABLET PO ONE (17:00)
[2017-11-22] MEDS: AZITHROMYCIN 250 MG TABLET PO SCH (18:49)
[2017-11-22] MEDS: TIOTROPIUM BROMIDE DPI 5 CAP/KIT (18 MCG/CAP) IH SCH (18:51)
--- NOTE | 2017-11-22 19:57 | PDOC PROGRESS REPORT ---
Subjective Progress Note for:: 11/22/17 Subjective:: No new complaints for this patient. Pt is denying any chest arm or neck discomfort. Patient denying any PND, orthopnea. Patient denied any sustained palpitations, dizziness, syncope, near syncope. Patient denying any fever chills. Patient denying any other significant discomfort. Patient however remains pleasantly confused. Patient is maintaining sinus rhythm. Review of systems: Rest review of systems negative. Medications: Medications have been reviewed. Reason For Visit: ACS,PE,SOB,DEMENTIA,DNR Physical Exam Vital Signs: Temp Pulse Resp BP Pulse Ox 97.6 F 68 17 110/60 100 11/22/17 15:53 11/22/17 15:53 11/22/17 15:53 11/22/17 15:53 11/22/17 15:53 Intake & Output 11/21/17 11/22/17 11/23/17 06:59 06:59 06:59 Intake Total 175 1240 739 Balance 175 1240 739 Weight 68 kg 67.8 kg Exam: GENERAL: well-nourished and in no acute distress. Patient is alert and pleasantly confused. HEAD: Atraumatic, normocephalic. EYES: Pupils equal round and reactive to light, extraocular movements intact, sclera anicteric, conjunctiva are normal. ENT: TMs normal, nares patent, oropharynx clear without exudates. Moist mucous membranes. No oral ulcerations or bleeding gums noted NECK: supple without lymphadenopathy or JVD. Trachea is central. No cervical or axillary lymphadenopathy noted. Carotids are 2+ LUNGS: Breath sounds bibasilar fine crackles at bases. No significant dullness noted. CHEST: Palpation of chest wall shows no significant chest wall tenderness. HEART: [place] [employer], No PSH, 2/6 JOSE GUADALUPE aortic area, 1/6 alvarez systolic murmur mitral area, rubs or gallops. ABDOMEN: Soft, no significant tenderness appreciated, normoactive bowel sounds. No guarding, no rebound. No rigidity noted . No masses appreciated. EXTREMITIES: Pedal pulses are 1-2+, no calf tenderness noted, Trace + pedal edema noted. No clubbing or cyanosis. NEUROLOGICAL: Patient is alert no focal neurologic deficit noted on quick exam. PSYCH: No behavioral abnormalities noted. Patient has intermittent mild agitation. SKIN: No significant ecchymosis, rash, ulcerations or signs of pruritus noted. MUSCULOSKELETAL EXAM: No significant joint swelling noted. Results Laboratory Results: 11/22/17 06:26 11/22/17 06:26 11/22/17 11/22/17 11/22/17 06:26 06:26 06:30 WBC 6.5 RBC 4.50 Hgb 13.6 Hct 41.7 MCV 93 MCH 30.2 MCHC 32.6 RDW 14.5 H Plt Count 217 Seg Neutrophils % 71.2 Lymphocytes % 17.2 Monocytes % 11.4 Eosinophils % 0.1 Basophils % 0.1 Absolute Neutrophils 4.6 Absolute Lymphocytes 1.1 Absolute Monocytes 0.7 Absolute Eosinophils 0.0 Absolute Basophils 0.0 Sodium 138.9 Potassium 4.1 Chloride 101 Carbon Dioxide 29 Anion Gap 9 BUN 16 Creatinine 0.79 Est GFR ( Amer) > 60 Est GFR (Non-Af Amer) > 60 Glucose 102 Calcium 9.4 Magnesium 2.0 Urine Color YELLOW Urine Appearance CLEAR Urine pH 6.0 Ur Specific [place] 1.016 Urine Protein NEGATIVE Urine Glucose (UA) NEGATIVE Urine Ketones NEGATIVE Urine Blood NEGATIVE Urine Nitrite NEGATIVE Ur Leukocyte Esterase NEGATIVE Urine WBC (Auto) 1 Urine RBC (Auto) 2 11/20/17 11/20/17 11/21/17 14:45 21:45 04:04 Creatine Kinase CK-MB (CK-2) 4.00 3.36 3.67 Troponin I 0.373 0.265 0.265 11/21/17 04:04 Creatine Kinase 73 CK-MB (CK-2) Troponin I EKG Comments: Shows sinus rhythm without any sustained tachycardia or bradycardia. Impressions: Chest X-Ray 11/20/17 08:58 IMPRESSION: COPD. NO ACUTE RADIOGRAPHIC FINDING IN THE CHEST. Chest/Abdomen CTA 11/20/17 11:33 IMPRESSION: NORMAL CTA OF THE CHEST. NO PULMONARY EMBOLI. Assessment & Plan - Diagnosis (1) NSTEMI (non-ST elevated myocardial infarction) Is this a current diagnosis for this admission?: Yes (2) Dyslipidemia Is this a current diagnosis for this admission?: Yes (3) Acute exacerbation of chronic bronchitis Is this a current diagnosis for this admission?: Yes (4) Altered mental state Qualifiers: Altered mental status type: disorientation Qualified Code(s): R41.0 - Disorientation, unspecified Is this a current diagnosis for this admission?: Yes (5) Atrial fibrillation Qualifiers: Atrial fibrillation type: paroxysmal Qualified Code(s): I48.0 - Paroxysmal atrial fibrillation Is this a current diagnosis for this admission?: Yes (6) Congestive heart failure Is this a current diagnosis for this admission?: No (7) Hypertension Qualifiers: Hypertension type: essential hypertension Qualified Code(s): I10 - Essential (primary) hypertension Is this a current diagnosis for this admission?: Yes - Notes Notes: We will start patient on lisinopril 2.5 mg p.o. daily. And when tolerated, will start patient on carvedilol at 3.125 mg p.o. twice daily. We are gradually optimizing patient's management. Non-STEMI: Patient ruled in for non-STEMI. Patient has positive enzyme and EKG changes indicative of it. At this point family and patient request medical management. They do not want to pursue heart catheterization. Continue patient on heparin, aspirin, Plavix, statins. Beta-blockers will be gradually instituted as patient is stabilized. Dyslipidemia: Agree with statin therapy. Patient has been started on Lipitor. Acute exacerbation of chronic bronchitis: Patient has a history of smoking. Recommend antibiotic therapy. CHF: Patient has a history of it. Currently no evidence of ongoing CHF. Observe patient for it. Coronary artery disease: Patient noted to have significant coronary calcification therefore does have CAD. Dementia: Patient noted to be pleasantly confused. Continue patient's dementia medications. 2D echocardiogram shows moderately depressed LVEF with distal anterior wall and apical akinesia. No significant valvular abnormalities were noted. - Time Time with patient: Greater than 35 minutes - CODE STATUS : was discussed, patient remains DO NOT RESUSCITATE. Surrogate decision-maker unchanged. Multiple medical problems were addressed. More than 50% of the time spent coordinating care, discussing management plans with involved caregivers. Management plans discussed with involved personnels. Medical decision making was of moderate to high complexity, patient's has multiple comorbidities. Medications reviewed and adjusted accordingly: Yes
[2017-11-22] MEDS: AMIODARONE HCL 200 MG TABLET PO SCH (21:39)
[2017-11-22] MEDS: METHYLPREDNISOLONE INJ 40 MG/1 ML SDV IV SCH (21:40)
[2017-11-22] MEDS: ATORVASTATIN CALCIUM 20 MG TABLET PO SCH (21:40)
[2017-11-22] MEDS: FLUTICASONE/SALMETEROL DISKUS 500-50 MCG/DOSE IH SCH (21:41)
[2017-11-23] MEDS: IPRATROPIUM/ALBUTEROL 0.5-2.5 MG/3 ML AMPUL NEB SCH ×4 (02:11→20:13)
[2017-11-23] MEDS: LORAZEPAM 0.5 MG TABLET PO SCH ×3 (05:23→21:32)
[2017-11-23] MEDS: METHYLPREDNISOLONE INJ 40 MG/1 ML SDV IV SCH ×3 (05:23→21:33)
[2017-11-23 06:11] LABS: HEMATOCRIT 42.3 % (36.0-47.0); HEMOGLOBIN 13.9 g/dL (12.0-15.5); MEAN CORPUSCULAR HEMOGLOBIN 30.1 pg (27.0-33.4); MEAN CORPUSCULAR HGB CONC 32.9 g/dL (32.0-36.0); MEAN CORPUSCULAR VOLUME 92 fl (80-97); PLATELET COUNT 197 10^3/uL (150-450); RED BLOOD COUNT 4.62 10^6/uL (3.72-5.28); RED CELL DISTRIBUTION WIDTH 14.2 % (11.5-14.0); WHITE BLOOD COUNT 5.3 10^3/uL (4.0-10.5)
[2017-11-23] MEDS: LISINOPRIL 5 MG TABLET PO SCH (10:30)
[2017-11-23] MEDS: DOCUSATE SODIUM 100 MG CAPSULE PO SCH (10:30)
[2017-11-23] MEDS: CLOPIDOGREL BISULFATE 75 MG TABLET PO SCH (10:30)
[2017-11-23] MEDS: ROFLUMILAST 500 MCG TABLET PO SCH (10:30)
[2017-11-23] MEDS: FAMOTIDINE 20 MG TABLET PO SCH ×2 (10:30→21:31)
[2017-11-23] MEDS: FLUTICASONE/SALMETEROL DISKUS 500-50 MCG/DOSE IH SCH ×2 (10:31→21:33)
[2017-11-23] MEDS: ASPIRIN 81 MG TABLET, CHEWABLE PO SCH (10:31)
[2017-11-23] MEDS ORDERED: MAGNESIUM HYDROXIDE SUSP 30 ML UDCUP PO PRN (15:28)
[2017-11-23] MEDS ORDERED: ATROPINE SULFATE 1% OPH SOLN 5 ML BOTTLE SL PRN (15:28)
--- NOTE | 2017-11-23 15:43 | PDOC PROGRESS REPORT ---
Subjective Progress Note for:: 11/23/17 Subjective:: Patient complains of chest pressure and shortness of breath however states that she is doing better. She is admits that the inhalers are working for her. Patient also admits that she suffers from depression. Reports that he is difficult to quit smoking. Concerned because she can hardly walk without getting short of breath. Patient made aware that smoking is simply making things worse Review of systems All organ systems evaluated and negative except as in subjective All significant laboratories and diagnostics have been reviewed Reason For Visit: ACS,PE,SOB,DEMENTIA,DNR Physical Exam Vital Signs: Temp Pulse Resp BP Pulse Ox 97.7 F 61 17 116/68 98 11/23/17 03:29 11/23/17 03:29 11/23/17 03:29 11/23/17 03:29 11/23/17 03:29 Intake & Output 11/21/17 11/22/17 11/23/17 06:59 06:59 06:59 Intake Total 175 1240 1005 Balance 175 1240 1005 Weight 68 kg 67.8 kg 67.8 kg General appearance: PRESENT: no acute distress, thin Head exam: PRESENT: atraumatic, normocephalic Eye exam: PRESENT: EOMI, PERRLA Mouth exam: PRESENT: moist Neck exam: PRESENT: full ROM. ABSENT: JVD, lymphadenopathy, tenderness Respiratory exam: PRESENT: decreased breath sounds, wheezes Cardiovascular exam: PRESENT: RRR. ABSENT: diastolic murmur, systolic murmur Vascular exam: PRESENT: normal capillary refill GI/Abdominal exam: PRESENT: normal bowel sounds, soft. ABSENT: tenderness Extremities exam: PRESENT: full ROM Musculoskeletal exam: PRESENT: ambulatory Neurological exam: PRESENT: alert, awake, oriented to person, oriented to place , oriented to time, oriented to situation, CN II-XII grossly intact Psychiatric exam: PRESENT: appropriate affect, normal mood Skin exam: PRESENT: intact, normal color Results Laboratory Results: 11/23/17 05:46 11/22/17 06:26 11/22/17 11/22/17 11/22/17 06:26 06:26 06:30 WBC 6.5 RBC 4.50 Hgb 13.6 Hct 41.7 MCV 93 MCH 30.2 MCHC 32.6 RDW 14.5 H Plt Count 217 Seg Neutrophils % 71.2 Lymphocytes % 17.2 Monocytes % 11.4 Eosinophils % 0.1 Basophils % 0.1 Absolute Neutrophils 4.6 Absolute Lymphocytes 1.1 Absolute Monocytes 0.7 Absolute Eosinophils 0.0 Absolute Basophils 0.0 Sodium 138.9 Potassium 4.1 Chloride 101 Carbon Dioxide 29 Anion Gap 9 BUN 16 Creatinine 0.79 Est GFR ( Amer) > 60 Est GFR (Non-Af Amer) > 60 Glucose 102 Calcium 9.4 Magnesium 2.0 Urine Color YELLOW Urine Appearance CLEAR Urine pH 6.0 Ur Specific [place] 1.016 Urine Protein NEGATIVE Urine Glucose (UA) NEGATIVE Urine Ketones NEGATIVE Urine Blood NEGATIVE Urine Nitrite NEGATIVE Ur Leukocyte Esterase NEGATIVE Urine WBC (Auto) 1 Urine RBC (Auto) 2 11/23/17 05:46 WBC 5.3 RBC 4.62 Hgb 13.9 Hct 42.3 MCV 92 MCH 30.1 MCHC 32.9 RDW 14.2 H Plt Count 197 Seg Neutrophils % Lymphocytes % Monocytes % Eosinophils % Basophils % Absolute Neutrophils Absolute Lymphocytes Absolute Monocytes Absolute Eosinophils Absolute Basophils Sodium Potassium Chloride Carbon Dioxide Anion Gap BUN Creatinine Est GFR ( Amer) Est GFR (Non-Af Amer) Glucose Calcium Magnesium Urine Color Urine Appearance Urine pH Ur Specific [place] Urine Protein Urine Glucose (UA) Urine Ketones Urine Blood Urine Nitrite Ur Leukocyte Esterase Urine WBC (Auto) Urine RBC (Auto) 11/20/17 11/20/17 11/21/17 14:45 21:45 04:04 Creatine Kinase CK-MB (CK-2) 4.00 3.36 3.67 Troponin I 0.373 0.265 0.265 11/21/17 04:04 Creatine Kinase 73 CK-MB (CK-2) Troponin I Impressions: Chest X-Ray 11/20/17 08:58 IMPRESSION: COPD. NO ACUTE RADIOGRAPHIC FINDING IN THE CHEST. Chest/Abdomen CTA 11/20/17 11:33 IMPRESSION: NORMAL CTA OF THE CHEST. NO PULMONARY EMBOLI. Assessment & Plan - Diagnosis (1) Acute respiratory failure with hypoxia and hypercarbia Is this a current diagnosis for this admission?: Yes Plan: Improved (2) Atrial fibrillation Qualifiers: Atrial fibrillation type: paroxysmal Qualified Code(s): I48.0 - Paroxysmal atrial fibrillation Is this a current diagnosis for this admission?: Yes Plan: Stable (3) NSTEMI (non-ST elevated myocardial infarction) Is this a current diagnosis for this admission?: Yes Plan: Due to myocardial demand ischemia (4) Acute exacerbation of chronic bronchitis Is this a current diagnosis for this admission?: Yes Plan: Continue spiriva, advair, zithromax and solumedrol (5) Tobacco abuse Is this a current diagnosis for this admission?: Yes Plan: Educated about quitting - Time Time Spent with patient: 15-24 minutes Medications reviewed and adjusted accordingly: Yes Anticipated discharge: Home with Homehealth Within: within 24 hours - Inpatient Certification Based on my medical assessment, after consideration of the patient's comorbidities, presenting symptoms, or acuity I expect that the services needed warrant INPATIENT care.: Yes I certify that my determination is in accordance with my understanding of Medicare's requirements for reasonable and necessary INPATIENT services [42 CFR 412.3e].: Yes Medical Necessity: Need Close Monitoring Due to Risk of Patient Decompensation, Need for Nebulizer Therapy and Monitoring of Response
[2017-11-23] MEDS: AZITHROMYCIN 250 MG TABLET PO SCH (18:19)
[2017-11-23] MEDS: TIOTROPIUM BROMIDE DPI 5 CAP/KIT (18 MCG/CAP) IH SCH (18:19)
--- NOTE | 2017-11-23 20:05 | PDOC PROGRESS REPORT ---
Subjective Progress Note for:: 11/23/17 Subjective:: No new complaints for this patient. Pt is denying any chest arm or neck discomfort. Patient denying any PND, orthopnea. Patient denied any sustained palpitations, dizziness, syncope, near syncope. Patient denying any fever chills. Patient denying any other significant discomfort. Patient however remains pleasantly confused. Patient is maintaining sinus rhythm. Review of systems: Rest review of systems negative. Medications: Medications have been reviewed. Reason For Visit: ACS,PE,SOB,DEMENTIA,DNR Physical Exam Vital Signs: Temp Pulse Resp BP Pulse Ox 98.2 F 65 16 115/55 L 97 11/23/17 15:00 11/23/17 15:00 11/23/17 15:00 11/23/17 15:00 11/23/17 15:00 Intake & Output 11/22/17 11/23/17 11/24/17 06:59 06:59 06:59 Intake Total 1240 1015 0 Balance 1240 1015 0 Weight 67.8 kg 67.8 kg Results Laboratory Results: 11/23/17 05:46 11/22/17 06:26 11/23/17 05:46 WBC 5.3 RBC 4.62 Hgb 13.9 Hct 42.3 MCV 92 MCH 30.1 MCHC 32.9 RDW 14.2 H Plt Count 197 11/20/17 11/20/17 11/21/17 14:45 21:45 04:04 Creatine Kinase CK-MB (CK-2) 4.00 3.36 3.67 Troponin I 0.373 0.265 0.265 11/21/17 04:04 Creatine Kinase 73 CK-MB (CK-2) Troponin I Impressions: Chest X-Ray 11/20/17 08:58 IMPRESSION: COPD. NO ACUTE RADIOGRAPHIC FINDING IN THE CHEST. Chest/Abdomen CTA 11/20/17 11:33 IMPRESSION: NORMAL CTA OF THE CHEST. NO PULMONARY EMBOLI. Assessment & Plan - Diagnosis (1) NSTEMI (non-ST elevated myocardial infarction) Is this a current diagnosis for this admission?: Yes (2) Dyslipidemia Is this a current diagnosis for this admission?: Yes (3) Acute exacerbation of chronic bronchitis Is this a current diagnosis for this admission?: Yes (4) Altered mental state Qualifiers: Altered mental status type: disorientation Qualified Code(s): R41.0 - Disorientation, unspecified Is this a current diagnosis for this admission?: Yes (5) Atrial fibrillation Qualifiers: Atrial fibrillation type: paroxysmal Qualified Code(s): I48.0 - Paroxysmal atrial fibrillation Is this a current diagnosis for this admission?: Yes (6) Congestive heart failure Is this a current diagnosis for this admission?: No (7) Hypertension Qualifiers: Hypertension type: essential hypertension Qualified Code(s): I10 - Essential (primary) hypertension Is this a current diagnosis for this admission?: Yes - Notes Notes: Patient now on CASSIDY inhibitor plus beta-manoj carvedilol. These can be gradually escalated as tolerated. Patient remains on Ranexa, statin and dual antiplatelet therapy therefore is now approaching adequate regimen. Will continue to follow patient since patient presented with rather large anterior and apical RI. - Time Time with patient: 15-25 minutes
[2017-11-23] MEDS: GUAIFENESIN 600 MG TABLET.SA PO SCH (21:31)
[2017-11-23] MEDS: ATORVASTATIN CALCIUM 20 MG TABLET PO SCH (21:32)
[2017-11-23] MEDS: AMIODARONE HCL 200 MG TABLET PO SCH (21:32)
[2017-11-23] MEDS: CARVEDILOL 3.125 MG TABLET PO SCH (21:32)
[2017-11-23] MEDS ORDERED: MELATONIN 3 MG TABLET PO SCH (22:00)
[2017-11-23] MEDS ORDERED: (PENDING PHARMACY ID) (Amiodarone Hcl [Pacerone 100 Mg Tablet] 100 MG) PO SCH (22:00)
[2017-11-23] MEDS ORDERED: MIRTAZAPINE 15 MG TABLET PO SCH (22:00)
[2017-11-23] MEDS ORDERED: PROPRANOLOL HCL 10 MG TABLET PO SCH (22:00)
[2017-11-23] MEDS ORDERED: MONTELUKAST SODIUM 10 MG TABLET PO SCH (22:00)
[2017-11-23] MEDS ORDERED: (PENDING PHARMACY ID) (Lisinopril [Prinivil 2.5 Mg Tablet] 2.5 MG) PO SCH (22:00)
[2017-11-23] MEDS ORDERED: (PENDING PHARMACY ID) (Guaifenesin [Mucinex] 600 MG) PO SCH (22:00)
[2017-11-23] MEDS ORDERED: LORAZEPAM 1 MG TABLET PO SCH (22:00)
[2017-11-23] MEDS ORDERED: TOPIRAMATE 100 MG TABLET PO SCH (22:00)
[2017-11-24] MEDS: IPRATROPIUM/ALBUTEROL 0.5-2.5 MG/3 ML AMPUL NEB SCH ×3 (01:54→13:45)
[2017-11-24] MEDS: LORAZEPAM 0.5 MG TABLET PO SCH ×2 (07:18→14:38)
[2017-11-24] MEDS: METHYLPREDNISOLONE INJ 40 MG/1 ML SDV IV SCH (07:18)
[2017-11-24] MEDS ORDERED: TOPIRAMATE 25 MG TABLET PO SCH (10:00)
[2017-11-24] MEDS ORDERED: DONEPEZIL HCL 5 MG TABLET PO SCH (10:00)
[2017-11-24] MEDS ORDERED: (PENDING PHARMACY ID) (Cholecalciferol (Vitamin D3) [Vitamin D3 2000 Unit Tablet] 2,000 UN PO SCH (10:00)
[2017-11-24] MEDS ORDERED: PREDNISONE 20 MG TABLET PO SCH (10:00)
[2017-11-24] MEDS ORDERED: (PENDING PHARMACY ID) (Donepezil Hcl [Aricept] 10 MG) PO SCH (10:00)
[2017-11-24] MEDS ORDERED: CETIRIZINE 10 MG TABLET PO SCH (10:00)
[2017-11-24] MEDS ORDERED: CHOLECALCIFEROL (D3) 1,000 UNIT TABLET PO SCH (10:00)
[2017-11-24] MEDS ORDERED: ASPIRIN 81 MG TABLET, CHEWABLE PO SCH (10:00)
[2017-11-24] MEDS ORDERED: (PENDING PHARMACY ID) (Cetirizine Hcl [Zyrtec] 10 MG) PO SCH (10:00)
[2017-11-24] MEDS: CLOPIDOGREL BISULFATE 75 MG TABLET PO SCH (10:46)
[2017-11-24] MEDS: ASPIRIN 81 MG TABLET, CHEWABLE PO SCH (10:46)
[2017-11-24] MEDS: FAMOTIDINE 20 MG TABLET PO SCH (10:46)
[2017-11-24] MEDS: LISINOPRIL 5 MG TABLET PO SCH (10:46)
[2017-11-24] MEDS: ROFLUMILAST 500 MCG TABLET PO SCH (10:46)
[2017-11-24] MEDS: FLUTICASONE/SALMETEROL DISKUS 500-50 MCG/DOSE IH SCH (10:46)
[2017-11-24] MEDS: DOCUSATE SODIUM 100 MG CAPSULE PO SCH (10:47)
[2017-11-24] MEDS: CARVEDILOL 3.125 MG TABLET PO SCH (10:47)
[2017-11-24] MEDS: GUAIFENESIN 600 MG TABLET.SA PO SCH (10:47)
[2017-11-24 12:21] VITALS: BP 106/59
--- NOTE | 2017-11-24 14:19 | PDOC DISCHARGE SUMMARY ---
General - Admit/Disc Date/PCP Admission Date/Primary Care Provider: 11/20/17 12:37 NOEL NAVARRO NP Discharge Date: 11/24/17 - Discharge Diagnosis (1) Acute respiratory failure with hypoxia and hypercarbia Is this a current diagnosis for this admission?: Yes Summary: The patient has acute on chronic hypoxic and hypercapnic respiratory failure. She is back to her baseline. She has oxygen set up at her assisted living facility. (2) NSTEMI (non-ST elevated myocardial infarction) Is this a current diagnosis for this admission?: Yes Summary: Continue medical management. [place] to be secondary to demand ischemia from her respiratory issues. (3) Atrial fibrillation Is this a current diagnosis for this admission?: Yes Summary: Currently in a sinus rhythm and rate controlled. Continue low-dose amiodarone (4) COPD exacerbation Is this a current diagnosis for this admission?: Yes Summary: Improving. She will complete a prednisone taper as an outpatient (5) Acute exacerbation of chronic bronchitis Is this a current diagnosis for this admission?: Yes Summary: She had been on Zithromax but I am concerned about her QT syndrome while being on amiodarone. I am going to have her complete a course of p.o. doxycycline as an outpatient. (6) Chronic combined systolic and diastolic congestive heart failure Is this a current diagnosis for this admission?: Yes Summary: Continue medical management (7) Tobacco abuse Is this a current diagnosis for this admission?: Yes Summary: She is highly encouraged to quit smoking - Additional Information Resuscitation Status: Do Not Resuscitate Discharge Diet: Cardiac Discharge Activity: Activity As Tolerated, Balance Activity w/Rest, Slowly Increase Activity Prescriptions: Atorvastatin Calcium [Lipitor 20 mg Tablet] 20 mg PO QHS #30 tablet Mirtazapine [Remeron 15 mg Tablet] 15 mg PO QHS #30 tablet Haloperidol [Haldol 0.5 mg Tablet] 0.5 mg PO Q4HP PRN #20 tablet PRN Reason: Carvedilol [Coreg 3.125 mg Tablet] 3.125 mg PO Q12 #60 tablet Clopidogrel Bisulfate [Plavix 75 mg Tablet] 75 mg PO DAILY #30 tablet Docusate Sodium [Colace 100 mg Capsule] 100 mg PO DAILY #30 capsule Doxycycline Hyclate 100 mg PO BID #14 capsule Famotidine [Pepcid 20 mg Tablet] 20 mg PO Q12 #60 tablet Fluoxetine HCl [Prozac] 40 mg PO DAILY #30 capsule Fluticasone/Salmeterol [Advair 500-50 Diskus 14 Dose/Diskus] 1 inh IH Q12 #1 inhaler Lorazepam [Ativan 0.5 mg Tablet] 0.5 mg PO Q8 #90 tablet Prednisone [Deltasone 20 mg Tablet] 10 mg PO ASDIR #39 tablet Prednisone [Deltasone 5 mg Tablet] 5 mg PO DAILY #30 tablet Home Medications: Atropine Sulfate [Atropine 1% Oph Soln 5 ml] 4 drop SL Q2HP PRN 11/20/17 Cetirizine HCl [Zyrtec] 10 mg PO DAILY 11/20/17 Cholecalciferol (Vitamin D3) [Vitamin D3 2000 unit Tablet] 2,000 unit PO DAILY 11/20/17 Donepezil HCl [Aricept] 10 mg PO DAILY 11/20/17 Guaifenesin [Mucinex] 600 mg PO Q12 11/20/17 Loperamide HCl [Loperamide] 2 mg PO DAILYP PRN 11/20/17 Magnesium Hydroxide [Milk of Magnesia] 2,400 mg PO HSP PRN 11/20/17 Melatonin [Melatonin 3 mg Tablet] 3 mg PO QHS 11/20/17 Montelukast Sodium [Singulair 10 mg Tablet] 10 mg PO QHS 11/20/17 Acetaminophen [Tylenol 325 mg Tablet] 487.5 mg PO Q4HP PRN tablet 11/24/17 Amiodarone HCl [Cordarone 200 mg Tablet] 100 mg PO QHS tablet 11/24/17 Aspirin [Aspirin 81 mg Chewable Tablet] 81 mg PO DAILY tab.chew 11/24/17 Atorvastatin Calcium [Lipitor 20 mg Tablet] 20 mg PO QHS #30 tablet 11/24/17 Carvedilol [Coreg 3.125 mg Tablet] 3.125 mg PO Q12 #60 tablet 11/24/17 Clopidogrel Bisulfate [Plavix 75 mg Tablet] 75 mg PO DAILY #30 tablet 11/24/17 Docusate Sodium [Colace 100 mg Capsule] 100 mg PO DAILY #30 capsule 11/24/17 Doxycycline Hyclate 100 mg PO BID #14 capsule 11/24/17 Famotidine [Pepcid 20 mg Tablet] 20 mg PO Q12 #60 tablet 11/24/17 Fluoxetine HCl [Prozac] 40 mg PO DAILY #30 capsule 11/24/17 Fluticasone/Salmeterol [Advair 500-50 Diskus 14 Dose/Diskus] 1 inh IH Q12 #1 inhaler 11/24/17 Haloperidol [Haldol 0.5 mg Tablet] 0.5 mg PO Q4HP PRN #20 tablet 11/24/17 Ipratropium/Albuterol Sulfate [Duoneb 3 ml Ampul] 3 ml NEB RTQ6 vial.neb Lisinopril [Prinivil 5 mg Tablet] 2.5 mg PO DAILY tablet 11/24/17 Lorazepam [Ativan 0.5 mg Tablet] 0.5 mg PO Q8 #90 tablet 11/24/17 Mirtazapine [Remeron 15 mg Tablet] 15 mg PO QHS #30 tablet 11/24/17 Prednisone [Deltasone 20 mg Tablet] 10 mg PO ASDIR #39 tablet 11/24/17 Prednisone [Deltasone 5 mg Tablet] 5 mg PO DAILY #30 tablet 11/24/17 History of Present Illness History of Present Illness: NIGHAT LIVINGSTON is a 77 year old female Hospital Course Hospital Course: The patient is a 77-year-old female who resides at [facility]. She presented to the emergency room with increased shortness of breath. She also was noted to have a cough with clear sputum production. Unfortunately the patient continues to smoke. Initial EKG in the emergency room had T-wave inversions in the anterior leads consistent with ischemia. Troponins were elevated and the patient was found to have a non-STEMI. The patient and her daughter requested medical management. Her hospitalization has been complicated by atrial fibrillation with rapid ventricular response. Currently she is back in this sinus rhythm and rate controlled. She will resume her home dose of amiodarone. 2D echocardiogram revealed evidence of grade 2 diastolic dysfunction and diminished left ventricular function of 35%. She has been followed closely by cardiology who has adjusted her medications and she is currently stable on the day of discharge. She also was found to be having an acute COPD exacerbation with acute bronchitis. Imaging studies did not reveal an underlying pneumonia. She had a CTA of her chest which ruled out pulmonary embolism. She will complete a p.o. steroid taper as an outpatient and she will complete a course of p.o. doxycycline as well. At this point maximum hospital benefit has been reached. She will be sent back to her assisted living facility today in stable condition. Physical Exam Vital Signs: Temp Pulse Resp BP Pulse Ox 97.8 F 77 16 106/59 L 100 11/24/17 11:49 11/24/17 13:45 11/24/17 13:45 11/24/17 11:49 11/24/17 13:45 Intake & Output 11/23/17 11/24/17 11/25/17 06:59 06:59 06:59 Intake Total 1015 0 Balance 1015 0 Weight 67.8 kg 67.8 kg General appearance: PRESENT: no acute distress, well-developed, well-nourished Head exam: PRESENT: atraumatic, normocephalic Eye exam: PRESENT: conjunctiva pink, EOMI, PERRLA. ABSENT: scleral icterus Mouth exam: PRESENT: moist, tongue midline Neck exam: ABSENT: carotid bruit, JVD, lymphadenopathy, thyromegaly Respiratory exam: PRESENT: prolonged expiratory phas, wheezes, other - The patient has some end expiratory wheezing throughout all lung yip bilaterally. ABSENT: accessory muscle use, chest wall tenderness Cardiovascular exam: PRESENT: RRR. ABSENT: diastolic murmur, rubs, systolic murmur GI/Abdominal exam: PRESENT: normal bowel sounds, soft. ABSENT: distended, guarding, mass, organolmegaly, rebound, tenderness Rectal exam: PRESENT: deferred Extremities exam: PRESENT: full ROM. ABSENT: calf tenderness, clubbing, pedal edema Neurological exam: PRESENT: alert, awake, oriented to person, oriented to place , oriented to time, oriented to situation, CN II-XII grossly intact. ABSENT: motor sensory deficit Psychiatric exam: PRESENT: appropriate affect, normal mood. ABSENT: homicidal ideation, suicidal ideation Skin exam: PRESENT: dry, intact, warm. ABSENT: cyanosis, rash Results Laboratory Results: 11/23/17 05:46 11/22/17 06:26 11/20/17 11/20/17 11/21/17 14:45 21:45 04:04 Creatine Kinase CK-MB (CK-2) 4.00 3.36 3.67 Troponin I 0.373 0.265 0.265 11/21/17 04:04 Creatine Kinase 73 CK-MB (CK-2) Troponin I Impressions: Chest X-Ray 11/20/17 08:58 IMPRESSION: COPD. NO ACUTE RADIOGRAPHIC FINDING IN THE CHEST. Chest/Abdomen CTA 11/20/17 11:33 IMPRESSION: NORMAL CTA OF THE CHEST. NO PULMONARY EMBOLI. Qualifiers - * PATEINT BEING DISCHARGED WITH ANY OF THE FOLLOWING DIAGNOSIS?: DE VTE patient discharged on overlapping Therapy?: No Reason(s) for not prescribing Overlap Therapy:: Not indicated Stroke Pt being discharged on Anti-thrombolytic therapy?: No Reason(s) for not prescribing Anti-thrombolytic therapy:: Not indicated Stroke Pt being discharged on Anti-coagulation therapy?: No Reason(s) for not prescribing Anti-coagulation therapy:: Not indicated DE Pt being discharged on Aspirin therapy?: Yes DE Pt being discharged on Statins?: Yes DE Pt discharged ACEI/ARBS?: Yes HF Pt being discharged on ACEI for LVEF less than 40%?: Yes HF Pt being discharged on ARBS for LVEF less than 40%?: No Reason(s) for not prescribing ARBS:: Not indicated HF Pt with Afib discharged with Warfarin?: No Reason(s) for not prescribing Warfarin:: Not indicated HF Pt discharged on evidence-based Beta Negro:: Yes Plan Time Spent: Greater than 30 Minutes
--- NOTE | 2017-11-24 19:44 | PDOC PROGRESS REPORT ---
Subjective Progress Note for:: 11/24/17 Subjective:: This Zoya was seen on morning rounds. No new complaints for this patient. Pt is denying any chest arm or neck discomfort. Patient denying any PND, orthopnea. Patient denied any sustained palpitations, dizziness, syncope, near syncope. Patient denying any fever chills. Patient denying any other significant discomfort. Patient however remains pleasantly confused. Patient' s medical therapy has been optimized. She has tolerated CASSIDY inhibitor and beta- manoj therapy. Patient is maintaining sinus rhythm. Review of systems: Rest review of systems negative. Medications: Medications have been reviewed. Reason For Visit: ACS,PE,SOB,DEMENTIA,DNR Physical Exam Vital Signs: Temp Pulse Resp BP Pulse Ox 97.8 F 77 16 106/59 L 96 11/24/17 11:49 11/24/17 13:45 11/24/17 13:45 11/24/17 11:49 11/24/17 15:43 Intake & Output 11/23/17 11/24/17 11/25/17 06:59 06:59 06:59 Intake Total 1015 0 Balance 1015 0 Weight 67.8 kg 67.8 kg Exam: GENERAL: well-nourished and in no acute distress. Alert and oriented x2, patient is pleasantly confused. HEAD: Atraumatic, normocephalic. EYES: Pupils equal round and reactive to light, extraocular movements intact, sclera anicteric, conjunctiva are normal. ENT: TMs normal, nares patent, oropharynx clear without exudates. Moist mucous membranes. No oral ulcerations or bleeding gums noted NECK: supple without lymphadenopathy. Trachea is central. No cervical or axillary lymphadenopathy noted. Carotids are 2+, JVD WNL LUNGS: Respiration seems nonlabored, no significant accessory muscle action noted. Breath sounds clear to auscultation bilaterally and equal noted. No wheezes rales or rhonchi noted. No significant dullness noted on percussion. CHEST: Palpation of the chest wall shows no significant chest wall tenderness. No other significant abnormalities noted. 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 ABDOMEN: Soft, no significant tenderness appreciated, normoactive bowel sounds. No guarding, no rebound. No rigidity noted . No masses appreciated. EXTREMITIES: Pedal pulses are 1-2+, no calf tenderness noted. No clubbing or cyanosis. Negative pedal edema noted NEUROLOGICAL: Focused neurological exam showed no significant neurologic deficit. Normal speech, no focal weakness appreciated. PSYCH: No behavioral abnormalities noted. SKIN: No significant ecchymosis, skin is noted to be warm. MUSCULOSKELETAL EXAM: No significant acute joint swelling noted. Results Laboratory Results: 11/23/17 05:46 11/22/17 06:26 11/20/17 11/20/17 11/21/17 14:45 21:45 04:04 Creatine Kinase CK-MB (CK-2) 4.00 3.36 3.67 Troponin I 0.373 0.265 0.265 11/21/17 04:04 Creatine Kinase 73 CK-MB (CK-2) Troponin I EKG Comments: Telemetry shows sinus rhythm without any sustained tachycardia or bradycardia. Impressions: Chest X-Ray 11/20/17 08:58 IMPRESSION: COPD. NO ACUTE RADIOGRAPHIC FINDING IN THE CHEST. Chest/Abdomen CTA 11/20/17 11:33 IMPRESSION: NORMAL CTA OF THE CHEST. NO PULMONARY EMBOLI. Assessment & Plan - Diagnosis (1) NSTEMI (non-ST elevated myocardial infarction) Is this a current diagnosis for this admission?: Yes (2) Dyslipidemia Is this a current diagnosis for this admission?: Yes (3) Acute exacerbation of chronic bronchitis Is this a current diagnosis for this admission?: Yes (4) Altered mental state Qualifiers: Altered mental status type: disorientation Qualified Code(s): R41.0 - Disorientation, unspecified Is this a current diagnosis for this admission?: Yes (5) Atrial fibrillation Qualifiers: Atrial fibrillation type: paroxysmal Qualified Code(s): I48.0 - Paroxysmal atrial fibrillation Is this a current diagnosis for this admission?: Yes (6) Congestive heart failure Is this a current diagnosis for this admission?: No (7) Hypertension Qualifiers: Hypertension type: essential hypertension Qualified Code(s): I10 - Essential (primary) hypertension Is this a current diagnosis for this admission?: Yes - Notes Notes: Patient remains free of any chest pain. Her medical regimen has been optimized. She has had no recurrence of chest pain or any significant arrhythmias. Recommend gradual escalating of CASSIDY inhibitor and beta-manoj dose as tolerated. At this point will sign off if there are significant recurrence of symptoms please reconsult. Non-STEMI: Patient ruled in for non-STEMI. Patient has positive enzyme and EKG changes indicative of it. Patient done well on medical management which should be continued given patient DNR status and history of dementia. Dyslipidemia: Agree with statin therapy. Continue high potency statin therapy. Acute exacerbation of chronic bronchitis: Patient has a history of smoking. Patient has been advised to quit smoking. Continue with antibiotic therapy or complete the course. CHF: Patient has a history of it. Currently no evidence of ongoing CHF. Patient currently compensated. Patient will benefit from salt and fluid restriction. Coronary artery disease: Patient noted to have significant coronary calcification therefore does have CAD. Dementia: Patient noted to be pleasantly confused. Continue patient's dementia medications. 2D echocardiogram shows moderately depressed LVEF with distal anterior wall and apical akinesia. No significant valvular abnormalities were noted. Patient was felt not a candidate for nuclear stress test as she was not being considered for heart catheterization. - Time Time with patient: Greater than 35 minutes - CODE STATUS was discussed, patient remains full code. Surrogate decision-maker unchanged. Multiple medical problems were addressed. More than 50% of the time spent coordinating care, discussing management plans with involved caregivers. Management plans discussed with involved personnels. Medical decision making was of moderate to high complexity, patient's has multiple comorbidities. Medications reviewed and adjusted accordingly: Yes
== END 2017-11-24 16:08 | disposition short-term general hospital (02) | DRG 280 ==
LOC: ER 08:57 → EH 12:37 → 4N 18:51
PROVIDERS: ADMIT Emergency Medicine; ATTEND Emergency Medicine
PROC: 3E0F73Z Introduction of Anti-inflammatory into Respiratory Tract, Via Natural or Artificial Opening (ICD-10-PCS; principal; 2017-11-20)
DX: I21.4 Non-ST elevation (NSTEMI) myocardial infarction (principal); J96.01 Acute respiratory failure with hypoxia; J96.02 Acute respiratory failure with hypercapnia; I50.42 Chronic combined systolic (congestive) and diastolic (congestive) heart failure; J44.1 Chronic obstructive pulmonary disease with (acute) exacerbation; J44.0 Chronic obstructive pulmonary disease with (acute) lower respiratory infection; I11.0 Hypertensive heart disease with heart failure; J20.9 Acute bronchitis, unspecified; I48.0 Paroxysmal atrial fibrillation; F03.90 Unspecified dementia, unspecified severity, without behavioral disturbance, psychotic disturbance, mood disturbance, and anxiety; E78.5 Hyperlipidemia, unspecified; F17.210 Nicotine dependence, cigarettes, uncomplicated; Z82.49 Family history of ischemic heart disease and other diseases of the circulatory system; Z82.61 Family history of arthritis; Z82.3 Family history of stroke; Z80.9 Family history of malignant neoplasm, unspecified; M19.90 Unspecified osteoarthritis, unspecified site; Z90.49 Acquired absence of other specified parts of digestive tract; Z79.899 Other long term (current) drug therapy; Z79.82 Long term (current) use of aspirin; Z66 Do not resuscitate; Z98.51 Tubal ligation status
CPT/HCPCS: 36415; 71045; 71275; 80048; 80053; 81001; 82550; 82553; 82803; 82962; 83605; 83735; 84484; 85025; 85027; 85610; 85730; 87040; 87086; 93005; 93010; 93306; 94640; 96374; 99285; J1644; J2920; J3490; J7512; J7620

== ENCOUNTER 2018-02-06 17:49 | Inpatient (IN) | payer MEDICARE, MEDICAID ==
--- NOTE | 2018-02-06 18:11 | ER Document Report ---
ED Fall - General Mode of Arrival: Medic Information source: Patient TRAVEL OUTSIDE OF THE [place] IN LAST 30 DAYS: No <SYED JUAREZ - Last Filed: 02/06/18 23:58> <PATRICIARYLANDJOSIAH - Last Filed: 02/07/18 00:02> - General Stated Complaint: FALL/RIGHT SIDE PAIN Time Seen by Provider: 02/06/18 17:53 Notes: Patient is a 77 year old female with HTN, COPD, A-fib and CHF presents to the emergency department via EMS due to a fall prior to arrival. Patient states she was walking with her walker when she tripped over her own feet and fell on her left hand side. Patient states she did hit her head but denies a syncopal episode. EMS state patient initially refused care but called EMS again when she began to have difficulty breathing when supine. Patient denies any other pain. Patient states she is at [facility] for a little extra help getting around. Patient denies Alzheimer's disease or dementia. Patient normally wears 3L of O2 at home and reports normally being around 95% SpO2. Patient is also currently taking Plavix. Patient is on hospice due to End Stage COPD. (SYED JUAREZ) - Related data Allergies/Adverse Reactions: No Known Allergies Allergy (Verified 11/20/17 09:13) Past Medical History - General Information source: Patient - Social History Smoking Status: Current Every Day Smoker Cigarette use (# per day): Yes Family History: Arthritis, CAD, CVA, DM, Hypertension, Malignancy - Past Medical History Cardiac Medical History: Reports: Hx Atrial Fibrillation, Hx Congestive Heart Failure, Hx Hypertension Pulmonary Medical History: Reports: Hx COPD, Hx Pneumonia - and hypoxemia GI Medical History: Reports: Hx Gastritis Musculoskeltal Medical History: Reports Hx Arthritis Psychiatric Medical History: Reports: Hx Dementia Past Surgical History: Reports: Hx Cholecystectomy, Hx Oral Surgery, Hx Tubal Ligation - Immunizations Immunizations up to date: Yes Hx Diphtheria, Pertussis, Tetanus Vaccination: Yes - unknown <YSED JUAREZ - Last Filed: 02/06/18 23:58> Review of Systems - Review of Systems Constitutional: No symptoms reported EENT: No symptoms reported Cardiovascular: No symptoms reported Respiratory: See HPI, Hurts to breathe Gastrointestinal: No symptoms reported Genitourinary: No symptoms reported Female Genitourinary: No symptoms reported Musculoskeletal: See HPI Skin: No symptoms reported Hematologic/Lymphatic: No symptoms reported Neurological/Psychological: No symptoms reported -: Yes All other systems reviewed and negative <LARRYSYED - Last Filed: 02/06/18 23:58> Physical Exam <SYED JUAREZ - Last Filed: 02/06/18 23:58> <JOSIAH ANDREWS - Last Filed: 02/07/18 00:02> - Vital signs Vitals: Resp Pulse Ox 22 H 96 02/06/18 18:16 02/06/18 18:16 - Notes Notes: GENERAL: Alert, interacts well. No acute distress until sitting up which then appears to be in respiratory distress. HEAD: Normocephalic, atraumatic. EYES: Pupils equal, round, and reactive to light. Extraocular movements intact. ENT: Oral mucosa moist, tongue midline. NECK: Full range of motion. Supple. Trachea midline. LUNGS: Inspiratory rhonchi. Expiratory wheezing. More shallow breaths due to pain. Stops breathing with deep breaths due to pain. On 3L of O2 at bedside. Respiratory when sitting up. HEART: Regular rate and rhythm. No murmurs, gallops, or rubs. ABDOMEN: Soft, tender to palpation to the LUQ(over the spleen), anterior axillary line, and left ribs 10-12. No guarding, rigidity or rebound. Non- distended. Bowel sounds present in all 4 quadrants. EXTREMITIES: Moves all 4 extremities spontaneously. Radial and dorsalis pedis pulses 2/4 bilaterally. No bony tenderness to palpation. No restrictive ROM. NEUROLOGICAL: Alert and oriented x3. Normal speech. PSYCH: Normal affect, normal mood. SKIN: Warm, dry. 3 skin tears total. 1st skin tear is superficial skin, flapped shaped, avulsed, located on the lateral aspect of the left elbow. 2nd skin tear is larger in size which is also flapped shaped and avulsed located on the lateral aspect just above the left elbow, does not penetrate muscle. 3rd skin tear is flapped shaped and avlused located on the right olecranon. Bleeding controlled within all skin tears. No signs of trauma over rib cage or abdomen. (SYED JUAREZ) Course - Laboratory Result Diagrams: 02/06/18 18:20 02/06/18 18:20 <SYED JUAREZ - Last Filed: 02/06/18 23:58> - Laboratory Result Diagrams: 02/06/18 18:20 02/06/18 18:20 <JOSIAH ANDREWS - Last Filed: 02/07/18 00:02> - Re-evaluation Re-evalutation: 02/06/18 22:10 Patient takes Plavix, hit her head, CT scan of the head was negative, neck is negative, CT scan of the chest was ordered given significant tenderness to palpation across the left side of her chest and abdomen, this showed rib fractures without pneumothorax or hemothorax. There is no evidence of splenic injury on the CAT scan. Patient is having a significant amount of pain, 4 of morphine caused her to vomit profusely. She is unable to move herself around in the bed without assistance. Skin tears were repaired with Steri-Strips. Discussed case with surgeon on-call Dr. Paulson who agrees that there is no surgical intervention at this time. I am concerned about balancing the patient' s narcotics with her COPD and the concern for possible oversedation and CO2 narcosis. Discussed with Dr. Muniz the hospitalist who agrees to admit the patient to his service for further pain management. (JOSIAH ANDREWS) - Vital Signs Vital signs: Temp Pulse Resp BP Pulse Ox 18 117/63 95 02/06/18 22:00 02/06/18 23:01 02/06/18 22:00 - Laboratory Laboratory results interpreted by me: 02/06/18 02/06/18 02/06/18 18:20 18:20 19:46 WBC 11.3 H RDW 15.5 H Seg Neutrophils % 80.7 H Lymphocytes % 10.0 L Absolute Neutrophils 9.1 H Carbon Dioxide 32 H Total Protein 6.1 L Albumin 3.4 L Urine Blood SMALL H Discharge <SYED JUAREZ - Last Filed: 02/06/18 23:58> - Discharge Admitting Provider: Maura Muniz Unit Admitted: Telemetry <JOSIAH ANDREWS - Last Filed: 02/07/18 00:02> - Discharge Clinical Impression: Multiple fractures of ribs, left side, initial encounter for closed fracture, COPD without exacerbation, Do not resuscitate Condition: Good Disposition: ADMITTED INPATIENT Scribe Attestation: 02/07/18 00:02 I personally performed the services described in the documentation, reviewed and edited the documentation which was dictated to the scribe in my presence, and it accurately records my words and actions. (JOSIAH ANDREWS)
[2018-02-06 18:31] LABS: ABSOLUTE EOSINOPHILS # (AUTO) 0.1 10^3/uL (0.0-0.6); ABSOLUTE LYMPHOCYTES (AUTO) 1.1 10^3/uL (0.5-4.7); ABSOLUTE MONOCYTES (AUTO) 0.9 10^3/uL (0.1-1.4); ABSOLUTE NEUT (AUTO) 9.1 10^3/uL (1.7-8.2); BASOPHILS % (AUTO) 0.3 % (0-2); EOSINOPHILS % (AUTO) 0.6 % (0-6); HEMATOCRIT 39.9 % (36.0-47.0); HEMOGLOBIN 13.1 g/dL (12.0-15.5); MEAN CORPUSCULAR HEMOGLOBIN 29.3 pg (27.0-33.4); MEAN CORPUSCULAR HGB CONC 32.8 g/dL (32.0-36.0); MEAN CORPUSCULAR VOLUME 89 fl (80-97); MONOCYTES % (AUTO) 8.4 % (3-13); PLATELET COUNT 284 10^3/uL (150-450); RED BLOOD COUNT 4.47 10^6/uL (3.72-5.28); RED CELL DISTRIBUTION WIDTH 15.5 % (11.5-14.0); SEGMENTED NEUTROPHILS % (AUTO) 80.7 % (42-78); TOTAL CELLS COUNTED % (AUTO) 100 %; WHITE BLOOD COUNT 11.3 10^3/uL (4.0-10.5)
[2018-02-06 18:38] LABS: PROTHROMBIN TIME 12.6 SEC (11.4-15.4)
[2018-02-06 18:39] LABS: PARTIAL THROMBOPLASTIN TIME 32.9 SEC (23.5-35.8)
[2018-02-06 18:45] LABS: ALANINE AMINOTRANSFERASE 25 U/L (9-52); ALBUMIN 3.4 g/dL (3.5-5.0); ALKALINE PHOSPHATASE 87 U/L (38-126); ANION GAP 9 (5-19); ASPARTATE AMINO TRANSFERASE 20 U/L (14-36); BILIRUBIN,DIRECT 0.2 mg/dL (0.0-0.4); BILIRUBIN,TOTAL 0.2 mg/dL (0.2-1.3); BLOOD UREA NITROGEN 14 mg/dL (7-20); CALCIUM 9.4 mg/dL (8.4-10.2); CARBON DIOXIDE 32 mmol/L (22-30); CHLORIDE 103 mmol/L (98-107); GLUCOSE 103 mg/dL (75-110); SODIUM 144.1 mmol/L (137-145); TOTAL PROTEIN 6.1 g/dL (6.3-8.2)
[2018-02-06] MEDS ORDERED: MORPHINE SULFATE 10 MG/ML INJ IV ONE (19:54)
[2018-02-06] MEDS ORDERED: MORPHINE SULFATE 10 MG/ML INJ ONE (20:01)
[2018-02-06 20:02] LABS: APPEARANCE,URINE CLEAR; BILIRUBIN,URINE NEGATIVE (NEGATIVE); COLOR,URINE STRAW; GLUCOSE, URINE NEGATIVE (NEGATIVE); KETONES,URINE NEGATIVE (NEGATIVE); LEUKOCYTE ESTERASE,URINE NEGATIVE (NEGATIVE); NITRITE,URINE NEGATIVE (NEGATIVE); PROTEIN,URINE NEGATIVE (NEGATIVE); URINE SPECIFIC GRAVITY 1.009; UROBILINOGEN,URINE NEGATIVE mg/dL (<2.0)
--- NOTE | 2018-02-06 20:51 | RADIOLOGY REPORT (SQ) ---
EXAM DESCRIPTION: CT CERVICAL SPINE WITHOUT COMPLETED DATE/TIME: 02/06/2018 8:39 pm REASON FOR STUDY: fall, hit head and left abd and ribs, SOB COMPARISON: None. TECHNIQUE: Axial images acquired through the cervical spine without intravenous contrast. Images re viewed with lung, soft tissue and bone windows. Reconstructed coronal and sagittal MPR images review ed. Images stored on PACS. All CT scanners at this facility use dose modulation, iterative reconstruction, and/or weight based d osing when appropriate to reduce radiation dose to as low as reasonably achievable (ALARA). [facility]: Dose Right [facility]: CareDose [facility]: Dose Right [facility]: Teradose 4D [facility]: Smart Technologies RADIATION DOSE: CT Rad equipment meets quality standard of care and radiation dose reduction techniq ues were employed. CTDIvol: 18.8 mGy. DLP: 418 mGy-cm. mGy. LIMITATIONS: None. FINDINGS: ALIGNMENT: Anatomic. MINERALIZATION: Normal. VERTEBRAL BODIES: No fractures or dislocation. DISCS: Multilevel disc space narrowing with osteophytes. FACETS, LATERAL MASSES, POSTERIOR ELEMENTS: Facet arthropathy. No fractures. No dislocation. No ac marianne findings. HARDWARE: None in the spine. VISUALIZED RIBS: No fractures. LUNG APICES AND SOFT TISSUES: No significant or acute findings. OTHER: No other significant finding. IMPRESSION: CHRONIC DEGENERATIVE CHANGES. NO ACUTE FINDINGS. TECHNICAL DOCUMENTATION: JOB ID: [id number] Quality ID # [id number]: Final reports with documentation of one or more dose reduction techniques (e.g., Au tomated exposure control, adjustment of the mA and/or kV according to patient size, use of iterative reconstruction technique) 2010 [employer]- All Rights Reserved Reading location - IP/workstation name: SAM
--- NOTE | 2018-02-06 20:52 | RADIOLOGY REPORT (SQ) ---
EXAM DESCRIPTION: CT HEAD WITHOUT COMPLETED DATE/TIME: 02/06/2018 8:39 pm REASON FOR STUDY: fall, hit head and left abd and ribs, SOB COMPARISON: 03/04/2015. TECHNIQUE: Axial images acquired through the brain without intravenous contrast. Images reviewed wi th bone, brain and subdural windows. Additional sagittal and coronal reconstructions were generated. Images stored on PACS. All CT scanners at this facility use dose modulation, iterative reconstruction, and/or weight based d osing when appropriate to reduce radiation dose to as low as reasonably achievable (ALARA). [facility]: Dose Right [facility]: CareDose [facility]: Dose Right [facility]: Teradose 4D [facility]: Smart M/A-COM RADIATION DOSE: CT Rad equipment meets quality standard of care and radiation dose reduction techniq ues were employed. CTDIvol: 53.2 mGy. DLP: 1017 mGy-cm. mGy. LIMITATIONS: None. FINDINGS: VENTRICLES: Prominent. CEREBRUM: No masses. No hemorrhage. No midline shift. Areas of low density in the white matter mos t likely due to chronic micro-vascular ischemic change. No evidence for acute infarction. CEREBELLUM: No masses. No hemorrhage. No alteration of density. No evidence for acute infarction. EXTRAAXIAL SPACES: Mild age-related involutional change. No fluid collections. No masses. ORBITS AND GLOBE: No intra- or extraconal masses. Normal contour of globe without masses. CALVARIUM: No fracture. PARANASAL SINUSES: No fluid or mucosal thickening. SOFT TISSUES: No mass or hematoma. OTHER: No other significant finding. IMPRESSION: MILD CHRONIC CHANGES OF ATROPHY AND MICROVASCULAR ISCHEMIA. NO ACUTE PROCESS. EVIDENCE OF ACUTE STROKE: NO. TECHNICAL DOCUMENTATION: JOB ID: [id number] Quality ID # 436: Final reports with documentation of one or more dose reduction techniques (e.g., Au tomated exposure control, adjustment of the mA and/or kV according to patient size, use of iterative reconstruction technique) 2010 [employer]- All Rights Reserved Reading location - IP/workstation name: [email or web address]
--- NOTE | 2018-02-06 20:59 | RADIOLOGY REPORT (SQ) ---
EXAM DESCRIPTION: CT CHEST WITH COMPLETED DATE/TIME: 02/06/2018 8:39 pm REASON FOR STUDY: fall, hit head and left abd and ribs, SOB COMPARISON: 11/20/2017. TECHNIQUE: CT scan of the chest performed using helical scanning technique with dynamic intravenous contrast injection. Images reviewed with lung, soft tissue and bone windows. Reconstructed coronal and sagittal MPR images reviewed. All images stored on PACS. All CT scanners at this facility use dose modulation, iterative reconstruction, and/or weight based d osing when appropriate to reduce radiation dose to as low as reasonably achievable (ALARA). [facility]: Dose Right [facility]: CareDose [facility]: Dose Right [facility]: Teradose 4D [facility]: Merfac CONTRAST TYPE AND DOSE: 69 mL Isovue 370- low osmolar. RENAL FUNCTION: Not available. RADIATION DOSE: . LIMITATIONS: None. FINDINGS: LUNGS AND PLEURA: No opacities, nodules, masses. No pneumothorax. No effusions. HILAR AND MEDIASTINAL STRUCTURES: No identified masses or abnormal nodes. HEART AND VASCULAR STRUCTURES: No aneurysm or dissection. No central pulmonary emboli. No pericardi al effusion. HARDWARE: None in the chest. UPPER ABDOMEN: No significant findings. Limited exam. THYROID AND OTHER SOFT TISSUES: No masses. No adenopathy. BONES: Fractures of the posterior left 11th and 12th ribs (axial series 4 image 51 and 58). Fracture of the anterior left 6th rib and possibly anterior left 7th rib (axial series 4 image 47 and 56). C hronic changes in the spine with old compression fracture of T12. OTHER: No other significant finding. IMPRESSION: LEFT-SIDED RIB FRACTURES DESCRIBED ABOVE. NO OTHER SIGNIFICANT FINDINGS IN THE CHEST. TECHNICAL DOCUMENTATION: JOB ID: [id number] Quality ID # [id number]: Final reports with documentation of one or more dose reduction techniques (e.g., Au tomated exposure control, adjustment of the mA and/or kV according to patient size, use of iterative reconstruction technique) 2010 [employer]- All Rights Reserved Reading location - IP/workstation name: [email or web address]
--- NOTE | 2018-02-06 21:01 | RADIOLOGY REPORT (SQ) ---
EXAM DESCRIPTION: CT ABD/PELVIS WITH IV ONLY COMPLETED DATE/TIME: 02/06/2018 8:39 pm REASON FOR STUDY: fall, hit head and left abd and ribs, SOB COMPARISON: None. TECHNIQUE: CT scan of the abdomen and pelvis performed using helical scanning technique with dynamic intravenous contrast injection. No oral contrast. Images reviewed with lung, soft tissue, and bone windows. Reconstructed coronal and sagittal MPR images reviewed. Delayed images for evaluation of the urinary system also acquired. All images stored on PACS. All CT scanners at this facility use dose modulation, iterative reconstruction, and/or weight based d osing when appropriate to reduce radiation dose to as low as reasonably achievable (ALARA). [facility]: Dose Right [facility]: CareDose [facility]: Dose Right [facility]: Teradose 4D [facility]: Worklight CONTRAST TYPE AND DOSE: contrast/concentration: Isovue 370.00 mg/ml; Total Contrast Delivered: 69.0 ml; Total Saline Delivered: 65.0 ml RENAL FUNCTION: Not available. RADIATION DOSE: CT Rad equipment meets quality standard of care and radiation dose reduction techniq ues were employed. CTDIvol: 11.2 - 16.9 mGy. DLP: 1638 mGy-cm.. LIMITATIONS: None. FINDINGS: LOWER CHEST: See separate report of the CT of the chest. LIVER: Normal size. No masses. No dilated ducts. SPLEEN: Normal size. No focal lesions. PANCREAS: No masses. No significant calcifications. No adjacent inflammation or peripancreatic fluid collections. Pancreatic duct not dilated. GALLBLADDER: No identified stones by CT criteria. No inflammatory changes to suggest cholecystitis. ADRENAL GLANDS: No significant masses or asymmetry. RIGHT KIDNEY AND URETER: No solid masses. No significant calcifications. No hydronephrosis or hyd roureter. LEFT KIDNEY AND URETER: No solid masses. No significant calcifications. No hydronephrosis or hydr oureter. AORTA AND VESSELS: No aneurysm. No dissection. Renal arteries, SMA, celiac without stenosis. RETROPERITONEUM: No retroperitoneal adenopathy, hemorrhage or masses. BOWEL AND PERITONEAL CAVITY: No masses or inflammatory changes. No free fluid or peritoneal masses. APPENDIX: Not visualized. PELVIS: No mass. No free fluid. Normal bladder. ABDOMINAL WALL: No masses. No hernias. BONES: Chronic changes in the spine. No acute findings. OTHER: No other significant finding. IMPRESSION: NO SIGNIFICANT OR ACUTE FINDING IN THE ABDOMEN OR PELVIS ON CT SCAN WITH IV CONTRAST. TECHNICAL DOCUMENTATION: JOB ID: [id number] Quality ID # 436: Final reports with documentation of one or more dose reduction techniques (e.g., Au tomated exposure control, adjustment of the mA and/or kV according to patient size, use of iterative reconstruction technique) 2010 [employer]- All Rights Reserved Reading location - IP/workstation name: [email or web address]
[2018-02-06] MEDS ORDERED: OXYCODONE-ACETAMINOPHEN 5-325 MG TABLET PO ONE (22:07)
[2018-02-06] MEDS ORDERED: LIDOCAINE 5% (700 MG) TRANSDERMAL ADH..PATCH TP ONE (22:07)
[2018-02-06] MEDS ORDERED: ACETAMINOPHEN 325 MG TABLET PO PRN (22:50)
[2018-02-06] MEDS ORDERED: MAGNESIUM HYDROXIDE SUSP 30 ML UDCUP PO PRN (22:50)
[2018-02-06] MEDS ORDERED: IPRATROPIUM/ALBUTEROL 0.5-2.5 MG/3 ML AMPUL NEB PRN (22:50)
[2018-02-06] MEDS ORDERED: MAG HYDROX/AL HYDROX/SIMETH SUSP 30 ML UDCUP PO PRN (22:50)
[2018-02-06] MEDS ORDERED: ATROPINE SULFATE 1% OPH SOLN 5 ML BOTTLE SL PRN (22:55)
[2018-02-06] MEDS ORDERED: HALOPERIDOL 0.5 MG TABLET PO PRN (22:55)
--- NOTE | 2018-02-06 23:10 | PDOC CONSULTATION ---
Consultation Consult Date: 02/06/18 Attending physician:: JOSIAH ANDREWS Consult reason:: Rib fractures History of Present Illness Admission Date/PCP: NOEL NAVARRO NP History of Present Illness: NIGHAT LIVINGSTON is a 77 year old female Presents to the emergency department via ground rescue after having fallen from the standing position while at the [facility]. The exact circumstances of the fall are somewhat unclear. Nonetheless she came to the emergency department complaining of left flank pain. She remained hemodynamically stable and neurologically intact. She had a extensive workup including CT scans of the head, neck, chest, and abdomen and pelvis without oral contrast. Findings were significant for 2 nondisplaced left posterior rib fractures 11 and 12 by report. Patient continued to have abdominal pain in the emergency department but decent saturations. Surgery was consulted for evaluation Past Medical History Cardiac Medical History: Reports: Atrial Fibrillation, Congestive Heart Failure , Hypertension Pulmonary Medical History: Reports: Chronic Obstructive Pulmonary Disease (COPD) , Pneumonia - and hypoxemia Musculoskeltal Medical History: Reports: Arthritis Psychiatric Medical History: Reports: Dementia Past Surgical History Past Surgical History: Reports: Cholecystectomy, Tubal Ligation Social History Smoking Status: Current Every Day Smoker Frequency of Alcohol Use: None Hx Recreational Drug Use: No - she denies illegal drug use but states that she likes the smell of MJ Drugs: None Hx Prescription Drug Abuse: No Family History Family History: Arthritis, CAD, CVA, DM, Hypertension, Malignancy Parental Family History Reviewed: Yes Children Family History Reviewed: Yes Sibling(s) Family History Reviewed.: Yes Medication/Allergy Home Medications: Atropine Sulfate [Atropine 1% Oph Soln 5 ml] 4 drop SL Q2HP PRN 11/20/17 Cetirizine HCl [Zyrtec] 10 mg PO DAILY 11/20/17 Cholecalciferol (Vitamin D3) [Vitamin D3 2000 unit Tablet] 2,000 unit PO DAILY 11/20/17 Donepezil HCl [Aricept] 10 mg PO DAILY 11/20/17 Guaifenesin [Mucinex] 600 mg PO Q12 11/20/17 Loperamide HCl [Loperamide] 2 mg PO DAILYP PRN 11/20/17 Magnesium Hydroxide [Milk of Magnesia] 2,400 mg PO HSP PRN 11/20/17 Melatonin [Melatonin 3 mg Tablet] 3 mg PO QHS 11/20/17 Montelukast Sodium [Singulair 10 mg Tablet] 10 mg PO QHS 11/20/17 Acetaminophen [Tylenol 325 mg Tablet] 487.5 mg PO Q4HP PRN tablet 11/24/17 Amiodarone HCl [Cordarone 200 mg Tablet] 100 mg PO QHS tablet 11/24/17 Aspirin [Aspirin 81 mg Chewable Tablet] 81 mg PO DAILY tab.chew 11/24/17 Atorvastatin Calcium [Lipitor 20 mg Tablet] 20 mg PO QHS #30 tablet 11/24/17 Carvedilol [Coreg 3.125 mg Tablet] 3.125 mg PO Q12 #60 tablet 11/24/17 Clopidogrel Bisulfate [Plavix 75 mg Tablet] 75 mg PO DAILY #30 tablet 11/24/17 Docusate Sodium [Colace 100 mg Capsule] 100 mg PO DAILY #30 capsule 11/24/17 Doxycycline Hyclate 100 mg PO BID #14 capsule 11/24/17 Famotidine [Pepcid 20 mg Tablet] 20 mg PO Q12 #60 tablet 11/24/17 Fluoxetine HCl [Prozac] 40 mg PO DAILY #30 capsule 11/24/17 Fluticasone/Salmeterol [Advair 500-50 Diskus 14 Dose/Diskus] 1 inh IH Q12 #1 inhaler 11/24/17 Haloperidol [Haldol 0.5 mg Tablet] 0.5 mg PO Q4HP PRN #20 tablet 11/24/17 Ipratropium/Albuterol Sulfate [Duoneb 3 ml Ampul] 3 ml NEB RTQ6 vial.neb Lisinopril [Prinivil 5 mg Tablet] 2.5 mg PO DAILY tablet 11/24/17 Lorazepam [Ativan 0.5 mg Tablet] 0.5 mg PO Q8 #90 tablet 11/24/17 Mirtazapine [Remeron 15 mg Tablet] 15 mg PO QHS #30 tablet 11/24/17 Prednisone [Deltasone 20 mg Tablet] 10 mg PO ASDIR #39 tablet 11/24/17 Prednisone [Deltasone 5 mg Tablet] 5 mg PO DAILY #30 tablet 11/24/17 Allergies/Adverse Reactions: No Known Allergies Allergy (Verified 11/20/17 09:13) Review of Systems ROS unobtainable: Due to mental status Eyes: ABSENT: visual disturbances Ears: ABSENT: hearing changes Respiratory: PRESENT: other - A. fib Gastrointestinal: PRESENT: other - Wears a diaper Genitourinary: PRESENT: other - Incontinence Musculoskeletal: PRESENT: other - Ambulates with walker Integumentary: PRESENT: other - Thin skin Neurological: PRESENT: abnormal gait Physical Exam Vital Signs: Intake & Output 02/05/18 02/06/18 02/07/18 06:59 06:59 06:59 Weight 63.503 kg General appearance: PRESENT: mild distress Head exam: PRESENT: normocephalic Eye exam: PRESENT: EOMI Mouth exam: PRESENT: dry mucosa Neck exam: PRESENT: full ROM Respiratory exam: PRESENT: chest wall tenderness, other - Left lower chest wall ; no ecchymosis no subcutaneous emphysema Cardiovascular exam: PRESENT: other - Irregularly irregular Pulses: PRESENT: normal carotid pulses, normal radial pulses, normal femoral pulses, normal dorsalis pedis pul GI/Abdominal exam: PRESENT: other - Tender left upper quadrant Rectal exam: PRESENT: deferred Musculoskeletal exam: PRESENT: other - +1 edema Neurological exam: PRESENT: alert, awake, oriented to person, oriented to place , oriented to time, oriented to situation Psychiatric exam: PRESENT: anxious Results Laboratory Results: 02/06/18 18:20 02/06/18 18:20 02/06/18 02/06/18 02/06/18 18:20 18:20 19:46 WBC 11.3 H RBC 4.47 Hgb 13.1 Hct 39.9 MCV 89 MCH 29.3 MCHC 32.8 RDW 15.5 H Plt Count 284 Seg Neutrophils % 80.7 H Lymphocytes % 10.0 L Monocytes % 8.4 Eosinophils % 0.6 Basophils % 0.3 Absolute Neutrophils 9.1 H Absolute Lymphocytes 1.1 Absolute Monocytes 0.9 Absolute Eosinophils 0.1 Absolute Basophils 0.0 Sodium 144.1 Potassium 4.0 Chloride 103 Carbon Dioxide 32 H Anion Gap 9 BUN 14 Creatinine 0.71 Est GFR ( Amer) > 60 Est GFR (Non-Af Amer) > 60 Glucose 103 Calcium 9.4 Total Bilirubin 0.2 AST 20 ALT 25 Alkaline Phosphatase 87 Total Protein 6.1 L Albumin 3.4 L Urine Color STRAW Urine Appearance CLEAR Urine pH 6.0 Ur Specific [place] 1.009 Urine Protein NEGATIVE Urine Glucose (UA) NEGATIVE Urine Ketones NEGATIVE Urine Blood SMALL H Urine Nitrite NEGATIVE Ur Leukocyte Esterase NEGATIVE Urine WBC (Auto) 0 Urine RBC (Auto) 3 Impressions: Abdomen/Pelvis CT 02/06/18 18:05 IMPRESSION: NO SIGNIFICANT OR ACUTE FINDING IN THE ABDOMEN OR PELVIS ON CT SCAN WITH IV CONTRAST. Cervical Spine CT 02/06/18 18:05 IMPRESSION: CHRONIC DEGENERATIVE CHANGES. NO ACUTE FINDINGS. Chest CT 02/06/18 18:05 IMPRESSION: LEFT-SIDED RIB FRACTURES DESCRIBED ABOVE. NO OTHER SIGNIFICANT FINDINGS IN THE CHEST. Head CT 02/06/18 18:05 IMPRESSION: MILD CHRONIC CHANGES OF ATROPHY AND MICROVASCULAR ISCHEMIA. NO ACUTE PROCESS. EVIDENCE OF ACUTE STROKE: NO. Assessment & Plan - Diagnosis (1) Multiple fractures of ribs, left side, initial encounter for closed fracture Is this a current diagnosis for this admission?: Yes Plan: I have carefully examined the patient, as well as CT scans of the chest and abdomen. The rib fractures are subtle, nondisplaced without associated pneumothorax, hemothorax, or hemo-peritoneum. The spleen appears intact. There is no subcutaneous air or cutaneous hematoma. Recommendations: 1. No indication for thoracostomy tube 2. Supportive therapy including pain management, oral versus lidocaine patch, given patient's tenuous pulmonary status secondary to ongoing smoking, COPD. 3. Recommend admission to the medical service for supportive care, continuation of DNR status (2) Do not resuscitate Is this a current diagnosis for this admission?: Yes (3) COPD without exacerbation Is this a current diagnosis for this admission?: Yes (4) Altered mental state Qualifiers: Altered mental status type: disorientation Qualified Code(s): R41.0 - Disorientation, unspecified Is this a current diagnosis for this admission?: Yes (5) Tobacco abuse Is this a current diagnosis for this admission?: Yes - Time Time Spent: 50 to 70 Minutes Smoking Cessation Education: over 10 minutes Medications reviewed and adjusted accordingly: Yes Anticipated discharge: Home
[2018-02-06] MEDS ORDERED: AMIODARONE HCL 200 MG TABLET PO ONE (23:15)
[2018-02-07] MEDS: MORPHINE SULFATE 10 MG/ML INJ IV PRN ×3 (01:53→18:00)
[2018-02-07] MEDS: IPRATROPIUM/ALBUTEROL 0.5-2.5 MG/3 ML AMPUL NEB SCH ×4 (02:14→20:05)
--- NOTE | 2018-02-07 04:40 | PDOC H&P ---
History of Present Illness Admission Date/PCP: 02/06/18 23:14 NOEL NAVARRO NP Patient complains of: Chest pain History of Present Illness: NIGHAT LIVINGSTON is a 77 year old female with a past medical history of hospice for oxygen dependent COPD, tobacco dependence, hypertension, congestive heart failure and atrial fibrillation. Patient is a resident of [facility] and presents after a trip and fall to her left chest resulting in intractable pain. She is brought to the emergency room and found to have skin tears of the upper extremity bilaterally and four left-sided rib fractures and referred to the hospitalist for admission. Patient denies headache, nausea vomiting or blurred vision. She denies recent change in medications. And otherwise feels well Past Medical History Cardiac Medical History: Reports: Atrial Fibrillation, Congestive Heart Failure , Hypertension Pulmonary Medical History: Reports: Chronic Obstructive Pulmonary Disease (COPD) , Pneumonia - and hypoxemia Musculoskeltal Medical History: Reports: Arthritis Psychiatric Medical History: Reports: Dementia, Tobacco Dependency Denies: Depression Past Surgical History Past Surgical History: Reports: Cholecystectomy, Tubal Ligation Social History Information Source: Patient Smoking Status: Current Every Day Smoker Cigarettes Packs Per Day: 0.5 Number of Years Smokin Frequency of Alcohol Use: None Hx Recreational Drug Use: No Drugs: None Hx Prescription Drug Abuse: No - Advance Directive Resuscitation Status: Do Not Resuscitate Family History Family History: Arthritis, CAD, CVA, DM, Hypertension, Malignancy Parental Family History Reviewed: Yes Children Family History Reviewed: Yes Sibling(s) Family History Reviewed.: Yes Medication/Allergy Home Medications: Atropine Sulfate [Atropine 1% Oph Soln 5 ml] 4 drop SL Q2HP PRN 11/20/17 Cetirizine HCl [Zyrtec] 10 mg PO DAILY 11/20/17 Cholecalciferol (Vitamin D3) [Vitamin D3 2000 unit Tablet] 2,000 unit PO DAILY 11/20/17 Amiodarone HCl [Cordarone 200 mg Tablet] 100 mg PO QHS tablet 11/24/17 Atorvastatin Calcium [Lipitor 20 mg Tablet] 20 mg PO QHS #30 tablet 11/24/17 Carvedilol [Coreg 3.125 mg Tablet] 3.125 mg PO Q12 #60 tablet 11/24/17 Clopidogrel Bisulfate [Plavix 75 mg Tablet] 75 mg PO DAILY #30 tablet 11/24/17 Docusate Sodium [Colace 100 mg Capsule] 100 mg PO DAILY #30 capsule 11/24/17 Famotidine [Pepcid 20 mg Tablet] 20 mg PO Q12 #60 tablet 11/24/17 Fluoxetine HCl [Prozac] 40 mg PO DAILY #30 capsule 11/24/17 Fluticasone/Salmeterol [Advair 500-50 Diskus 14 Dose/Diskus] 1 inh IH Q12 #1 inhaler 11/24/17 Haloperidol [Haldol 0.5 mg Tablet] 0.5 mg PO Q4HP PRN #20 tablet 11/24/17 Ipratropium/Albuterol Sulfate [Duoneb 3 ml Ampul] 3 ml NEB RTQ6 vial.neb Lorazepam [Ativan 0.5 mg Tablet] 0.5 mg PO Q8 #90 tablet 11/24/17 Mirtazapine [Remeron 15 mg Tablet] 15 mg PO QHS #30 tablet 11/24/17 Prednisone [Deltasone 5 mg Tablet] 5 mg PO DAILY #30 tablet 11/24/17 Acetaminophen [Tylenol 325 mg Tablet] 325 mg PO Q4HP PRN 02/07/18 Carisoprodol 250 mg PO BID 02/07/18 Fluticasone Propionate [Fluticasone Propionate] 1 spray NASL PRN PRN 02/07/18 Lisinopril [Prinivil 5 mg Tablet] 5 mg PO DAILY 02/07/18 Allergies/Adverse Reactions: No Known Allergies Allergy (Verified 11/20/17 09:13) Review of Systems Constitutional: ABSENT: chills, fever(s), headache(s), weight gain, weight loss Eyes: ABSENT: visual disturbances Ears: ABSENT: hearing changes Cardiovascular: ABSENT: chest pain, dyspnea on exertion, edema, orthropnea, palpitations Respiratory: ABSENT: cough, hemoptysis Gastrointestinal: PRESENT: constipation. ABSENT: abdominal pain, diarrhea, hematemesis, hematochezia, nausea, vomiting Genitourinary: ABSENT: dysuria, hematuria Musculoskeletal: ABSENT: joint swelling Integumentary: ABSENT: rash, wounds Neurological: ABSENT: abnormal gait, abnormal speech, confusion, dizziness, focal weakness, syncope Psychiatric: ABSENT: anxiety, depression, homidical ideation, suicidal ideation Endocrine: ABSENT: cold intolerance, heat intolerance, polydipsia, polyuria Hematologic/Lymphatic: ABSENT: easy bleeding, easy bruising Physical Exam Vital Signs: Temp Pulse Resp BP Pulse Ox 98.5 F 69 20 118/50 L 94 02/07/18 03:46 02/07/18 03:46 02/07/18 03:46 02/07/18 03:46 02/07/18 03:46 Intake & Output 02/05/18 02/06/18 02/07/18 11:59 11:59 11:59 Weight 66.5 kg General appearance: PRESENT: cooperative, mild distress, well-developed, well- nourished Head exam: PRESENT: atraumatic, normocephalic Eye exam: PRESENT: conjunctiva pink, EOMI, PERRLA. ABSENT: scleral icterus Ear exam: PRESENT: normal external ear exam Mouth exam: PRESENT: moist, tongue midline Neck exam: ABSENT: carotid bruit, JVD, lymphadenopathy, thyromegaly Respiratory exam: PRESENT: accessory muscle use, chest wall tenderness, clear to auscultation robbin, crackles, prolonged expiratory phas, symmetrical, tachypnea. ABSENT: rales, retraction, rhonchi, wheezes Cardiovascular exam: PRESENT: RRR. ABSENT: diastolic murmur, rubs, systolic murmur Pulses: PRESENT: normal dorsalis pedis pul Vascular exam: PRESENT: normal capillary refill GI/Abdominal exam: PRESENT: normal bowel sounds, soft. ABSENT: distended, guarding, mass, organolmegaly, rebound, tenderness Rectal exam: PRESENT: deferred Extremities exam: PRESENT: full ROM. ABSENT: calf tenderness, clubbing, pedal edema Neurological exam: PRESENT: alert, awake, oriented to person, oriented to place , oriented to time, oriented to situation, CN II-XII grossly intact. ABSENT: motor sensory deficit Psychiatric exam: PRESENT: appropriate affect, normal mood. ABSENT: homicidal ideation, suicidal ideation Skin exam: PRESENT: dry, intact, warm. ABSENT: cyanosis, rash Results Impressions: Abdomen/Pelvis CT 02/06/18 18:05 IMPRESSION: NO SIGNIFICANT OR ACUTE FINDING IN THE ABDOMEN OR PELVIS ON CT SCAN WITH IV CONTRAST. Cervical Spine CT 02/06/18 18:05 IMPRESSION: CHRONIC DEGENERATIVE CHANGES. NO ACUTE FINDINGS. Chest CT 02/06/18 18:05 IMPRESSION: LEFT-SIDED RIB FRACTURES DESCRIBED ABOVE. NO OTHER SIGNIFICANT FINDINGS IN THE CHEST. Head CT 02/06/18 18:05 IMPRESSION: MILD CHRONIC CHANGES OF ATROPHY AND MICROVASCULAR ISCHEMIA. NO ACUTE PROCESS. EVIDENCE OF ACUTE STROKE: NO. Assessment & Plan - Diagnosis (1) Multiple fractures of ribs, left side, initial encounter for closed fracture Is this a current diagnosis for this admission?: Yes Plan: Symptomatic management, incentive spirometry, minimize narcotics given advanced COPD, pain management consult and consideration of intercostal nerve block. (2) Acute exacerbation of chronic bronchitis Is this a current diagnosis for this admission?: Yes Plan: Flonase, prednisone, albuterol and Atrovent with aggressive pulmonary toilet of incentive spirometry and flutter valve (3) Atrial fibrillation Qualifiers: Atrial fibrillation type: paroxysmal Qualified Code(s): I48.0 - Paroxysmal atrial fibrillation Is this a current diagnosis for this admission?: Yes Plan: Rate controlled continue outpatient regiment - Time Time Spent: 50 to 70 Minutes - Inpatient Certification Medical Necessity: Need Close Monitoring Due to Risk of Patient Decompensation
[2018-02-07 05:28] LABS: ABSOLUTE LYMPHOCYTES (AUTO) 1.2 10^3/uL (0.5-4.7); ABSOLUTE MONOCYTES (AUTO) 1.2 10^3/uL (0.1-1.4); ABSOLUTE NEUT (AUTO) 9.3 10^3/uL (1.7-8.2); BASOPHILS % (AUTO) 0.1 % (0-2); EOSINOPHILS % (AUTO) 0.4 % (0-6); HEMATOCRIT 39.2 % (36.0-47.0); HEMOGLOBIN 12.8 g/dL (12.0-15.5); LYMPHOCYTES % (AUTO) 9.9 % (13-45); MEAN CORPUSCULAR HEMOGLOBIN 29.6 pg (27.0-33.4); MEAN CORPUSCULAR HGB CONC 32.6 g/dL (32.0-36.0); MEAN CORPUSCULAR VOLUME 91 fl (80-97); MONOCYTES % (AUTO) 10.5 % (3-13); PLATELET COUNT 253 10^3/uL (150-450); RED BLOOD COUNT 4.32 10^6/uL (3.72-5.28); RED CELL DISTRIBUTION WIDTH 15.2 % (11.5-14.0); SEGMENTED NEUTROPHILS % (AUTO) 79.1 % (42-78); TOTAL CELLS COUNTED % (AUTO) 100 %; WHITE BLOOD COUNT 11.7 10^3/uL (4.0-10.5)
[2018-02-07] MEDS: LORAZEPAM 0.5 MG TABLET PO SCH ×3 (05:41→22:54)
[2018-02-07] MEDS: KETOROLAC TROMETHAMINE INJ/PF 30 MG/1 ML SDV IV PRN ×3 (05:41→22:54)
[2018-02-07] MEDS: HEPARIN SOD (PORCINE) 5,000 UNIT/ML 1 ML SYRINGE SUBCUT SCH ×3 (05:41→22:54)
[2018-02-07 05:51] LABS: ANION GAP 9 (5-19); BLOOD UREA NITROGEN 15 mg/dL (7-20); CALCIUM 9.2 mg/dL (8.4-10.2); CARBON DIOXIDE 36 mmol/L (22-30); CHLORIDE 101 mmol/L (98-107); GLUCOSE 117 mg/dL (75-110); POTASSIUM 4.4 mmol/L (3.6-5.0); SODIUM 145.8 mmol/L (137-145)
[2018-02-07] MEDS: CARVEDILOL 3.125 MG TABLET PO SCH ×2 (09:42→22:54)
[2018-02-07] MEDS: DOCUSATE SODIUM 100 MG CAPSULE PO SCH ×2 (09:43→17:54)
[2018-02-07] MEDS: CETIRIZINE 10 MG TABLET PO SCH (09:43)
--- NOTE | 2018-02-07 14:51 | PDOC PROGRESS REPORT ---
Subjective Progress Note for:: 02/07/18 Subjective:: This is a 77 years old female patient admitted for intractable chest pain due to multiple rib fractures secondary to accidental fall. This morning patient evaluated by pain specialist for further nerve block to control the pain but patient opted for medication instead. I seen her resting in bed. She is awake alert but she complained of chest pain on the left side on deep breathing. Reason For Visit: FALL,RIB FX,PAIN,COPD EXACERBATION Physical Exam Vital Signs: Temp Pulse Resp BP Pulse Ox 98.3 F 77 18 126/66 H 89 L 02/07/18 07:42 02/07/18 12:14 02/07/18 12:14 02/07/18 07:42 02/07/18 08:20 Intake & Output 02/06/18 02/07/18 02/08/18 06:59 06:59 06:59 Intake Total 10 275 Balance 10 275 Weight 66.5 kg General appearance: PRESENT: no acute distress, well-developed, well-nourished Head exam: PRESENT: atraumatic, normocephalic Neck exam: ABSENT: carotid bruit, JVD, lymphadenopathy, thyromegaly Respiratory exam: PRESENT: crackles Cardiovascular exam: PRESENT: RRR. ABSENT: diastolic murmur, rubs, systolic murmur GI/Abdominal exam: PRESENT: normal bowel sounds, soft. ABSENT: distended, guarding, mass, organolmegaly, rebound, tenderness Extremities exam: PRESENT: other - Lacerations on both legs Neurological exam: PRESENT: alert, awake, oriented to time, oriented to situation Results Laboratory Results: 02/07/18 04:44 02/07/18 04:44 02/07/18 02/07/18 04:44 04:44 WBC 11.7 H RBC 4.32 Hgb 12.8 Hct 39.2 MCV 91 MCH 29.6 MCHC 32.6 RDW 15.2 H Plt Count 253 Seg Neutrophils % 79.1 H Lymphocytes % 9.9 L Monocytes % 10.5 Eosinophils % 0.4 Basophils % 0.1 Absolute Neutrophils 9.3 H Absolute Lymphocytes 1.2 Absolute Monocytes 1.2 Absolute Eosinophils 0.0 Absolute Basophils 0.0 Sodium 145.8 H Potassium 4.4 Chloride 101 Carbon Dioxide 36 H Anion Gap 9 BUN 15 Creatinine 0.68 Est GFR ( Amer) > 60 Est GFR (Non-Af Amer) > 60 Glucose 117 H Calcium 9.2 Impressions: Abdomen/Pelvis CT 02/06/18 18:05 IMPRESSION: NO SIGNIFICANT OR ACUTE FINDING IN THE ABDOMEN OR PELVIS ON CT SCAN WITH IV CONTRAST. Cervical Spine CT 02/06/18 18:05 IMPRESSION: CHRONIC DEGENERATIVE CHANGES. NO ACUTE FINDINGS. Chest CT 02/06/18 18:05 IMPRESSION: LEFT-SIDED RIB FRACTURES DESCRIBED ABOVE. NO OTHER SIGNIFICANT FINDINGS IN THE CHEST. Head CT 02/06/18 18:05 IMPRESSION: MILD CHRONIC CHANGES OF ATROPHY AND MICROVASCULAR ISCHEMIA. NO ACUTE PROCESS. EVIDENCE OF ACUTE STROKE: NO. Assessment & Plan - Diagnosis (1) Chest pain Is this a current diagnosis for this admission?: Yes Plan: Due to #3 Pain control (2) COPD without exacerbation Is this a current diagnosis for this admission?: Yes Plan: As needed DuoNeb (3) Multiple fractures of ribs, left side, initial encounter for closed fracture Is this a current diagnosis for this admission?: Yes Plan: Pain controll (4) Atrial fibrillation Qualifiers: Atrial fibrillation type: paroxysmal Qualified Code(s): I48.0 - Paroxysmal atrial fibrillation Is this a current diagnosis for this admission?: Yes Plan: Rate controlled. - Time Time Spent with patient: 25-34 minutes
--- NOTE | 2018-02-07 20:45 | CONSULTATION REPORT E ---
Consultation Report NAME: NIGHAT LIVINGSTON : 1940 AGE: 77Y DATE: 02/07/2018 307 A TO: SILVERIO KAUR M.D. FROM: SILVERIO CALABRESE M.D. Requesting Physician REASON FOR CONSULTATION: Recent rib fracture and intractable pain. HISTORY OF PRESENT ILLNESS: The patient seen in consultation for chest pain related to recent fall with rib fractures at multiple levels on the left. She is a 77-year-old female with extensive past medical history including COPD, hypertension, CHF, and AFIB. She is on Plavix and aspirin which she was taking over the weekend. She notes that she is a resident at [facility] and presented after a trip and fall, landing on her left chest and increased pain with dyspnea on exertion and on deep breaths, she gets chest pain. She went to the Emergency Room and was found to have multiple abrasions, the rib fractures on imaging, and was referred for admission. She denies any loss of consciousness or head injury. She denies any recent change in her medications and had been continuously taking her Plavix and aspirin. She states that since she has been admitted, the pain medication that she has received has been beneficial. She still has pain with deep breathing and has not been up with PT yet. She notes that she does not wish to have any type of injections and wishes to only trial the medications. PAST MEDICAL HISTORY: 1. History of atrial fibrillation. 2. CHF. 3. Hypertension. 4. COPD. 5. Prior history of pneumonia and oxygen dependency. 6. History of arthritis. 7. Tobacco dependency. PAST SURGICAL HISTORY: 1. Cholecystectomy. 2. Tubal ligation. SOCIAL HISTORY: Patient remains a smoker. Denies alcohol or illicits. FAMILY HISTORY: Noncontributory. MEDICATIONS: Please see MAR. She is currently receivin. Acetaminophen p.o. q. 6 hours p.r.n. 2. Toradol 50 mg q. 6 hours p.r.n. 3. Ativan 0.5 mg q. 8 scheduled. 4. Morphine 2 mg IV q. 3 hours p.r.n. 5. Lidoderm 5% transdermal patches. REVIEW OF SYSTEMS: Otherwise unchanged from her recent HPI dictated upon admission. ALLERGIES: None. PHYSICAL EXAMINATION: GENERAL: Resting, lying in bed, no distress. HEENT: Normocephalic, atraumatic. NECK: Supple. RESPIRATORY: Short inspiration. No accessory muscle use but chest wall tenderness on the left over ribs. CARDIOVASCULAR: Regular rate and rhythm. Pulses: Normal dorsal pedal as well as radial VASCULAR: Normal capillary refill. EXTREMITIES: Moving all extremities with full range of motion. NEUROLOGIC: Alert and oriented to person, place, time, and situation. No motor deficits. Did not ambulate during visit. PSYCHIATRIC: Normal mood and appropriate affect. DIAGNOSTIC STUDIES: Noted results: Please see in EMR with noted multiple fractures. ASSESSMENT: Right sided chest wall pain related to rib fracture with multiple comorbidities. PLAN: 1. After discussing with patient, the patient has declined any type of interventional procedure. We discussed, given her aspirin and Plavix, she would not currently be a candidate for epidural placement to help with her multiple rib fractures. We also discussed paravertebral versus intercostal nerve blocks, which she declined, given her relative contraindication as well to her antiplatelet and aspirin regimen. 2. We have discussed continuing Lidoderm around the clock Toradol and Tylenol as needed. 3. Would continue IV morphine. Would consider transition to oral medication for longer-lasting relief but would continue to minimize opioids as possible, given her COPD, age, and risk of further falls. 4. We have discussed physical therapy to confirm that she is able to ambulate with her current medication regimen safely given her recent fractures and pain medicatoins. Thank you for the consult. For any questions, please feel free to consult us again. Patient has declined interventional procedures and would consider oral transition once comfortable on IV morphine and would continue with plans for PT. DICTATING PHYSICIAN: SILVERIO KAUR M.D. [id number] PHY#: [id number] ID: [id number] JOB#: [id number] ACCT: [id number] cc:SILVERIO KAUR M.D. > MTDBraulio
[2018-02-07] MEDS: AMIODARONE HCL 200 MG TABLET PO SCH (22:54)
[2018-02-08] MEDS: IPRATROPIUM/ALBUTEROL 0.5-2.5 MG/3 ML AMPUL NEB SCH ×4 (01:51→19:43)
[2018-02-08] MEDS: KETOROLAC TROMETHAMINE INJ/PF 30 MG/1 ML SDV IV PRN ×3 (05:28→21:23)
[2018-02-08] MEDS: LORAZEPAM 0.5 MG TABLET PO SCH ×3 (07:01→21:22)
[2018-02-08] MEDS: HEPARIN SOD (PORCINE) 5,000 UNIT/ML 1 ML SYRINGE SUBCUT SCH ×3 (07:01→21:23)
[2018-02-08] MEDS: CARVEDILOL 3.125 MG TABLET PO SCH ×2 (09:13→21:22)
[2018-02-08] MEDS: DOCUSATE SODIUM 100 MG CAPSULE PO SCH ×2 (09:13→17:35)
[2018-02-08] MEDS: CETIRIZINE 10 MG TABLET PO SCH (09:13)
--- NOTE | 2018-02-08 11:07 | PDOC PROGRESS REPORT ---
Subjective Progress Note for:: 02/08/18 Subjective:: I seen patient resting in bed. She is awake alert. She has excruciating rib cage pain due to the multiple rib fractures she has. Patient is going to be started on fentanyl patch. Reason For Visit: FALL,RIB FX,PAIN,COPD EXACERBATION Physical Exam Vital Signs: Temp Pulse Resp BP Pulse Ox 98.9 F 69 18 117/45 L 94 02/08/18 07:59 02/08/18 07:59 02/08/18 07:59 02/08/18 07:59 02/08/18 07:59 Intake & Output 02/07/18 02/08/18 02/09/18 06:59 06:59 06:59 Intake Total 10 620 Balance 10 620 Weight 66.5 kg 66.5 kg Results Laboratory Results: 02/07/18 04:44 02/07/18 04:44 Impressions: Abdomen/Pelvis CT 02/06/18 18:05 IMPRESSION: NO SIGNIFICANT OR ACUTE FINDING IN THE ABDOMEN OR PELVIS ON CT SCAN WITH IV CONTRAST. Cervical Spine CT 02/06/18 18:05 IMPRESSION: CHRONIC DEGENERATIVE CHANGES. NO ACUTE FINDINGS. Chest CT 02/06/18 18:05 IMPRESSION: LEFT-SIDED RIB FRACTURES DESCRIBED ABOVE. NO OTHER SIGNIFICANT FINDINGS IN THE CHEST. Head CT 02/06/18 18:05 IMPRESSION: MILD CHRONIC CHANGES OF ATROPHY AND MICROVASCULAR ISCHEMIA. NO ACUTE PROCESS. EVIDENCE OF ACUTE STROKE: NO. Assessment & Plan - Diagnosis (1) Chest pain Is this a current diagnosis for this admission?: Yes Plan: Due to #3 Fentanyl patch added to her regimen. (2) COPD without exacerbation Is this a current diagnosis for this admission?: Yes Plan: She has been on bronchodilator and supplemental oxygen. (3) Multiple fractures of ribs, left side, initial encounter for closed fracture Is this a current diagnosis for this admission?: Yes Plan: Pain controll (4) Atrial fibrillation Qualifiers: Atrial fibrillation type: paroxysmal Qualified Code(s): I48.0 - Paroxysmal atrial fibrillation Is this a current diagnosis for this admission?: Yes Plan: Rate controlled. Continue home medications. (5) Dementia Qualifiers: Dementia type: unspecified type Dementia behavioral disturbance: without behavioral disturbance Qualified Code(s): F03.90 - Unspecified dementia without behavioral disturbance Is this a current diagnosis for this admission?: Yes Plan: Stable (6) Hypertension Qualifiers: Hypertension type: essential hypertension Qualified Code(s): I10 - Essential (primary) hypertension Is this a current diagnosis for this admission?: Yes Plan: Continue her home medications.
[2018-02-08] MEDS ORDERED: FENTANYL 25 MCG/HR PATCH.TD72 TD SCH (12:00)
[2018-02-08] MEDS: AMIODARONE HCL 200 MG TABLET PO SCH (21:22)
[2018-02-09] MEDS: IPRATROPIUM/ALBUTEROL 0.5-2.5 MG/3 ML AMPUL NEB SCH ×2 (02:59→07:36)
[2018-02-09] MEDS: LORAZEPAM 0.5 MG TABLET PO SCH ×3 (05:08→22:12)
[2018-02-09] MEDS: HEPARIN SOD (PORCINE) 5,000 UNIT/ML 1 ML SYRINGE SUBCUT SCH ×3 (05:08→22:09)
[2018-02-09] MEDS: KETOROLAC TROMETHAMINE INJ/PF 30 MG/1 ML SDV IV PRN (05:12)
[2018-02-09] MEDS ORDERED: ALBUTEROL SULFATE 0.083% NEB 2.5 MG/3 ML AMPUL NEB PRN (09:41)
[2018-02-09] MEDS ORDERED: CARISOPRODOL 250 MG PO SCH (10:00)
[2018-02-09] MEDS: CETIRIZINE 10 MG TABLET PO SCH (10:05)
[2018-02-09] MEDS: CARVEDILOL 3.125 MG TABLET PO SCH ×2 (10:05→22:07)
[2018-02-09] MEDS: DOCUSATE SODIUM 100 MG CAPSULE PO SCH ×2 (10:05→11:37)
[2018-02-09] MEDS: FAMOTIDINE 20 MG TABLET PO SCH ×2 (10:15→22:11)
[2018-02-09] MEDS: CLOPIDOGREL BISULFATE 75 MG TABLET PO SCH (10:15)
[2018-02-09] MEDS: FLUOXETINE HCL 20 MG CAPSULE PO SCH (10:15)
[2018-02-09] MEDS: HYDROMORPHONE HCL INJ/PF 2 MG/ML AMPULE IV PRN ×2 (10:16→17:30)
--- NOTE | 2018-02-09 10:24 | PROGRESS NOTE E ---
Progress Note NAME: NIGHAT LIVINGSTON : 1940 AGE: 77Y DATE: 02/09/2018 ROOM: 307 SUBJECTIVE: The patient is currently lying in bed. She is in an excruciating amount of pain. The patient states she is getting no pain relief. The patient is on hospice on an outside basis, which is to be kept comfortable. The patient denies any nausea, vomiting, diarrhea. No dizziness or chest pain. The patient is unable to cough due to this excruciating amount of pain and the patient does not voice any other concerns at this time. REVIEW OF SYSTEMS: Rest of review of systems is negative. MEDICATIONS: Medications have been reviewed. OBJECTIVE: GENERAL: The patient is a 77-year-old female who is awake, alert. She is oriented to person, place, time, and situation. She is verbal, conversational, does not appear to be distressed. VITAL SIGNS: Temperature is 98.6, pulse 63, respirations 19, blood pressure is 93/48, oxygen saturation is 94% on 3 L nasal cannula. SKIN: Warm and dry. No rash. She is not diaphoretic. HEENT: Pupils equal, round, and reactive to light and accommodation. Conjunctiva is pink. No evidence of JVP. CARDIOVASCULAR SYSTEM: Heart is regular. There is no murmur or rub. CHEST: Clear, symmetrical, unlabored. ABDOMEN: Soft, nontender, nondistended. BACK: No CVA tenderness or sacral edema. EXTREMITIES: No clubbing, cyanosis, edema. DIAGNOSTICS: Lab values are as follows: Hematology obtained on 02/07/2018: WBCs are 1.7, hemoglobin is 12.8, hematocrit is 39.2, platelet count is 253,000. Chemistry obtained on 02/07/2018: Sodium is 143, potassium 4.4, chloride is 101, carbon dioxide 36, BUN 15, creatinine is 0.58, glucose 117, calcium is 9.2. IMPRESSION AND PLAN: 1. MULTIPLE RIB FRACTURES OF THE LEFT SIDE. THIS IS A CLOSED FRACTURE FOLLOWUP TO THE INITIAL ENCOUNTER. The patient overall is still in an excruciating amount of pain. The patient states her main goal is comfort measures only. She gets hospice on an outpatient basis. Will increase the patient's Duragesic's since she does have some albumin to work with to 50 mcg. Additionally, will transition to Dilaudid IV and place direct application of lidocaine patches and follow. 2. CHRONIC OBSTRUCTIVE PULMONARY DISEASE. Overall, this appears stable. 3. ATRIAL FIBRILLATION. Continue the patient's home medication. 4. DEMENTIA. The patient appears to be at her baseline. 5. HYPERTENSION. Will continue blood pressure medications. 6. CHRONIC SYSTOLIC AND DIASTOLIC CONGESTIVE HEART FAILURE. The patient appears to be optivolemic. DISPOSITION: The patient is a DO NOT RESUSCITATE/DO NOT INTUBATE WITH COMFORT CARE MEASURES ONLY. Pending patient's symptomatology and diagnostic findings, will re-evaluate as needed. Will downgrade the patient to a medical bed. Will optimize the patient's comfort before returning her back to [facility] with hospice. Time spent on this followup including assessment, plan, physical examination, patient education, and review of records is 25 minutes. DICTATING PHYSICIAN: IRVIN IVORY NP [id number] PHY#: [id number] ID: [id number] JOB#: [id number] ACCT: [id number] cc: > MTDD
[2018-02-09] MEDS ORDERED: LIDOCAINE 5% (700 MG) TRANSDERMAL ADH..PATCH TP ONE (11:30)
[2018-02-09] MEDS ORDERED: PREDNISONE 5 MG TABLET PO ONE (11:30)
[2018-02-09] MEDS ORDERED: FENTANYL 50 MCG/HR PATCH.TD72 TD SCH (12:00)
[2018-02-09] MEDS: FLUTICASONE/SALMETEROL DISKUS 500-50 MCG/DOSE IH SCH (17:20)
[2018-02-09] MEDS: AMIODARONE HCL 200 MG TABLET PO SCH (22:10)
[2018-02-09] MEDS: MIRTAZAPINE 15 MG TABLET PO SCH (22:12)
[2018-02-10] MEDS: KETOROLAC TROMETHAMINE INJ/PF 30 MG/1 ML SDV IV PRN (04:12)
[2018-02-10] MEDS: HEPARIN SOD (PORCINE) 5,000 UNIT/ML 1 ML SYRINGE SUBCUT SCH ×3 (06:20→21:56)
[2018-02-10] MEDS: LORAZEPAM 0.5 MG TABLET PO SCH ×3 (06:20→21:55)
[2018-02-10] MEDS ORDERED: PREDNISONE 5 MG TABLET PO SCH (10:00)
[2018-02-10] MEDS: FLUTICASONE/SALMETEROL DISKUS 500-50 MCG/DOSE IH SCH ×2 (10:46→17:54)
[2018-02-10] MEDS: FLUOXETINE HCL 20 MG CAPSULE PO SCH (10:47)
[2018-02-10] MEDS: CARVEDILOL 3.125 MG TABLET PO SCH ×2 (10:47→21:55)
[2018-02-10] MEDS: CETIRIZINE 10 MG TABLET PO SCH (10:48)
[2018-02-10] MEDS: FAMOTIDINE 20 MG TABLET PO SCH ×2 (10:48→21:56)
[2018-02-10] MEDS: CLOPIDOGREL BISULFATE 75 MG TABLET PO SCH (10:48)
[2018-02-10] MEDS: LIDOCAINE 5% (700 MG) TRANSDERMAL ADH..PATCH TP SCH (10:49)
[2018-02-10] MEDS: DOCUSATE SODIUM 100 MG CAPSULE PO SCH (11:06)
[2018-02-10] MEDS ORDERED: HYDROMORPHONE HCL INJ/PF 2 MG/ML AMPULE IV PRN (14:29)
--- NOTE | 2018-02-10 14:54 | PDOC PROGRESS REPORT ---
Subjective Progress Note for:: 02/10/18 Subjective:: Patient thinks that her pain is somewhat better but when she takes a deep breath or coughs the pain at the rib fracture site worsens. She is feeling a little bit sleepy and a little bit "out of it". Breathing is about baseline. Appetite is poor. No nausea or vomiting. No other complaints. Reason For Visit: FALL,RIB FX,PAIN,COPD EXACERBATION Physical Exam Vital Signs: Temp Pulse Resp BP Pulse Ox 98.1 F 71 20 122/59 L 97 02/10/18 11:24 02/10/18 11:24 02/10/18 11:24 02/10/18 11:24 02/10/18 11:24 Intake & Output 02/09/18 02/10/18 02/11/18 06:59 06:59 06:59 Intake Total 559 568 200 Balance 559 568 200 Weight 66.7 kg 66.4 kg General appearance: PRESENT: no acute distress, cooperative Head exam: PRESENT: atraumatic, normocephalic Eye exam: ABSENT: conjunctival injection, scleral icterus Ear exam: PRESENT: normal external ear exam Mouth exam: PRESENT: moist, tongue midline Respiratory exam: PRESENT: chest wall tenderness, unlabored, wheezes. ABSENT: tachypnea Cardiovascular exam: PRESENT: RRR. ABSENT: systolic murmur GI/Abdominal exam: PRESENT: normal bowel sounds, soft. ABSENT: distended, tenderness Extremities exam: ABSENT: pedal edema Neurological exam: PRESENT: alert, awake, oriented to person, oriented to place , oriented to situation Psychiatric exam: PRESENT: anxious Skin exam: PRESENT: dry, warm Results Laboratory Results: 02/07/18 04:44 02/07/18 04:44 Impressions: Abdomen/Pelvis CT 02/06/18 18:05 IMPRESSION: NO SIGNIFICANT OR ACUTE FINDING IN THE ABDOMEN OR PELVIS ON CT SCAN WITH IV CONTRAST. Cervical Spine CT 02/06/18 18:05 IMPRESSION: CHRONIC DEGENERATIVE CHANGES. NO ACUTE FINDINGS. Chest CT 02/06/18 18:05 IMPRESSION: LEFT-SIDED RIB FRACTURES DESCRIBED ABOVE. NO OTHER SIGNIFICANT FINDINGS IN THE CHEST. Head CT 02/06/18 18:05 IMPRESSION: MILD CHRONIC CHANGES OF ATROPHY AND MICROVASCULAR ISCHEMIA. NO ACUTE PROCESS. EVIDENCE OF ACUTE STROKE: NO. Assessment & Plan - Diagnosis (1) Multiple fractures of ribs, left side, initial encounter for closed fracture Is this a current diagnosis for this admission?: Yes Plan: Patient had a mechanical fall when roughhousing with a friend and fractured ribs in the left hemithorax in several places. Please see CT scan. Her fentanyl patch has been increased from 25-50 mics every 72 hours, she has been receiving Dilaudid 2 mg IV every 2 hours as needed and she is feeling a little fuzzy in the head. I have decreased her Dilaudid dose initially 2.5 IV and now to 2 mg orally every 4 hours as needed so that we can hope to get her back to the [facility] as soon as possible on pain medications that she can use there. Get her up and out of the bed as she desires. (2) COPD without exacerbation Is this a current diagnosis for this admission?: Yes Plan: Seems stable from this perspective. We will continue her home medications including bronchodilators and prednisone. (3) Do not resuscitate Is this a current diagnosis for this admission?: Yes Plan: Patient has a DNR/DNI wish. She is a hospice patient and receives home hospice at the [facility]. (4) Atrial fibrillation Qualifiers: Atrial fibrillation type: paroxysmal Qualified Code(s): I48.0 - Paroxysmal atrial fibrillation Is this a current diagnosis for this admission?: Yes Plan: Rate controlled. Continue amiodarone and Coreg. It appears that she is not anticoagulated for A. fib. (5) Dementia Qualifiers: Dementia type: unspecified type Dementia behavioral disturbance: without behavioral disturbance Qualified Code(s): F03.90 - Unspecified dementia without behavioral disturbance Is this a current diagnosis for this admission?: Yes Plan: We will monitor her for safety given her hospitalization in the setting of dementia. We will also be mindful of her dementia when prescribing medications. - Time Time Spent with patient: 25-34 minutes Medications reviewed and adjusted accordingly: Yes Anticipated discharge: Other - Home with hospice - Inpatient Certification Based on my medical assessment, after consideration of the patient's comorbidities, presenting symptoms, or acuity I expect that the services needed warrant INPATIENT care.: Yes I certify that my determination is in accordance with my understanding of Medicare's requirements for reasonable and necessary INPATIENT services [42 CFR 412.3e].: Yes Medical Necessity: Risk of Complication if Not Cared For in Hospital
[2018-02-10] MEDS: MIRTAZAPINE 15 MG TABLET PO SCH (21:53)
[2018-02-10] MEDS: AMIODARONE HCL 200 MG TABLET PO SCH (21:54)
[2018-02-11] MEDS: LORAZEPAM 0.5 MG TABLET PO SCH ×3 (05:09→21:15)
[2018-02-11] MEDS: HEPARIN SOD (PORCINE) 5,000 UNIT/ML 1 ML SYRINGE SUBCUT SCH ×3 (05:10→21:16)
[2018-02-11 05:50] LABS: ANION GAP 7 (5-19); BLOOD UREA NITROGEN 23 mg/dL (7-20); CALCIUM 9.1 mg/dL (8.4-10.2); CARBON DIOXIDE 36 mmol/L (22-30); CHLORIDE 95 mmol/L (98-107); GLUCOSE 83 mg/dL (75-110); POTASSIUM 3.7 mmol/L (3.6-5.0); SODIUM 137.5 mmol/L (137-145)
[2018-02-11] MEDS: HYDROMORPHONE HCL 2 MG TABLET PO PRN (06:05)
[2018-02-11] MEDS ORDERED: ALBUTEROL SULFATE 0.083% NEB 2.5 MG/3 ML AMPUL NEB PRN (09:48)
--- NOTE | 2018-02-11 10:02 | PDOC PROGRESS REPORT ---
Subjective Progress Note for:: 02/11/18 Subjective:: Very dyspneic today, pain well controlled, feels a littel too sleepy, wants to drink some coffee. No CP, no fever, no nausea or vomiting, urinating fine. Reason For Visit: FALL,RIB FX,PAIN,COPD EXACERBATION Physical Exam Vital Signs: Temp Pulse Resp BP Pulse Ox 98.2 F 72 18 128/60 H 91 L 02/11/18 07:54 02/11/18 07:54 02/11/18 07:54 02/11/18 07:54 02/11/18 07:54 Intake & Output 02/10/18 02/11/18 02/12/18 06:59 06:59 06:59 Intake Total 568 475 Balance 568 475 Weight 66.4 kg 66.5 kg General appearance: PRESENT: mild distress, thin Head exam: PRESENT: atraumatic, normocephalic Eye exam: ABSENT: conjunctival injection, scleral icterus Mouth exam: PRESENT: dry mucosa, tongue midline Respiratory exam: PRESENT: decreased breath sounds, prolonged expiratory phas, tachypnea, unlabored, wheezes Cardiovascular exam: PRESENT: RRR Pulses: PRESENT: normal radial pulses GI/Abdominal exam: PRESENT: normal bowel sounds, soft. ABSENT: distended, firm , tenderness Extremities exam: PRESENT: other - eccymoses over arms from fall Neurological exam: PRESENT: alert, awake, oriented to person, oriented to place , oriented to situation Psychiatric exam: PRESENT: appropriate affect Skin exam: PRESENT: dry, warm, other - eccymotic Results Laboratory Results: 02/07/18 04:44 02/11/18 04:20 02/11/18 04:20 Sodium 137.5 Potassium 3.7 Chloride 95 L Carbon Dioxide 36 H Anion Gap 7 BUN 23 H Creatinine 0.66 Est GFR ( Amer) > 60 Est GFR (Non-Af Amer) > 60 Glucose 83 Calcium 9.1 Impressions: Abdomen/Pelvis CT 02/06/18 18:05 IMPRESSION: NO SIGNIFICANT OR ACUTE FINDING IN THE ABDOMEN OR PELVIS ON CT SCAN WITH IV CONTRAST. Cervical Spine CT 02/06/18 18:05 IMPRESSION: CHRONIC DEGENERATIVE CHANGES. NO ACUTE FINDINGS. Chest CT 02/06/18 18:05 IMPRESSION: LEFT-SIDED RIB FRACTURES DESCRIBED ABOVE. NO OTHER SIGNIFICANT FINDINGS IN THE CHEST. Head CT 02/06/18 18:05 IMPRESSION: MILD CHRONIC CHANGES OF ATROPHY AND MICROVASCULAR ISCHEMIA. NO ACUTE PROCESS. EVIDENCE OF ACUTE STROKE: NO. Assessment & Plan - Diagnosis (1) Multiple fractures of ribs, left side, initial encounter for closed fracture Is this a current diagnosis for this admission?: Yes Plan: pain controlled improved, will cont fentanyl but decrease to 37.5 for excessive somnolence, will cont po dilaudid at 2 mg dosing. Cont lidocaine patch. Once pain med regimen stable will DC home with hospice. (2) COPD without exacerbation Is this a current diagnosis for this admission?: Yes Plan: resp distress this am, will increase steroids to prednisone 30 mg po BID, and schedule duonebs q 4 hrs with albuterol q 2 hrs prn. (3) Do not resuscitate Is this a current diagnosis for this admission?: Yes (4) Atrial fibrillation Qualifiers: Atrial fibrillation type: paroxysmal Qualified Code(s): I48.0 - Paroxysmal atrial fibrillation Is this a current diagnosis for this admission?: Yes Plan: rate controlled, cont current care with amio and anticoagulation (5) Dementia Qualifiers: Dementia type: unspecified type Dementia behavioral disturbance: without behavioral disturbance Qualified Code(s): F03.90 - Unspecified dementia without behavioral disturbance Is this a current diagnosis for this admission?: Yes Plan: monitor for safety, fall precautions - Time Time Spent with patient: 25-34 minutes Medications reviewed and adjusted accordingly: Yes - Inpatient Certification Based on my medical assessment, after consideration of the patient's comorbidities, presenting symptoms, or acuity I expect that the services needed warrant INPATIENT care.: Yes I certify that my determination is in accordance with my understanding of Medicare's requirements for reasonable and necessary INPATIENT services [42 CFR 412.3e].: Yes Medical Necessity: Need for Nebulizer Therapy and Monitoring of Response, Need for Pain Control
[2018-02-11] MEDS: FLUOXETINE HCL 20 MG CAPSULE PO SCH (10:40)
[2018-02-11] MEDS: FAMOTIDINE 20 MG TABLET PO SCH ×2 (10:40→21:15)
[2018-02-11] MEDS: CLOPIDOGREL BISULFATE 75 MG TABLET PO SCH (10:40)
[2018-02-11] MEDS: CETIRIZINE 10 MG TABLET PO SCH (10:41)
[2018-02-11] MEDS: LIDOCAINE 5% (700 MG) TRANSDERMAL ADH..PATCH TP SCH (10:41)
[2018-02-11] MEDS: CARVEDILOL 3.125 MG TABLET PO SCH ×2 (10:41→21:15)
[2018-02-11] MEDS ORDERED: FENTANYL 12 MCG/HR PATCH.TD72 TD ONE (11:00)
[2018-02-11] MEDS ORDERED: PREDNISONE 20 MG TABLET PO ONE (11:00)
[2018-02-11] MEDS ORDERED: FENTANYL 25 MCG/HR PATCH.TD72 TD ONE (11:00)
[2018-02-11] MEDS: IPRATROPIUM/ALBUTEROL 0.5-2.5 MG/3 ML AMPUL NEB SCH ×3 (12:08→19:40)
[2018-02-11] MEDS: DOCUSATE SODIUM 100 MG CAPSULE PO SCH (14:20)
[2018-02-11] MEDS ORDERED: HALOPERIDOL 0.5 MG TABLET ONE (16:50)
[2018-02-11] MEDS ORDERED: PREDNISONE 10 MG TABLET ONE (17:56)
[2018-02-11] MEDS ORDERED: PREDNISONE 10 MG TABLET PO SCH (18:00)
[2018-02-11] MEDS ORDERED: PREDNISONE 20 MG TABLET PO SCH ×2 (18:00)
[2018-02-11] MEDS ORDERED: FLUTICASONE NASAL SPRAY 50 MCG/SPRY 120 SPRAY/16 GM NASL PRN (19:23)
[2018-02-11] MEDS ORDERED: IPRATROPIUM/ALBUTEROL 0.5-2.5 MG/3 ML AMPUL NEB PRN (19:23)
[2018-02-11] MEDS ORDERED: PREDNISONE 10 MG TABLET PO ONE (19:45)
[2018-02-11] MEDS ORDERED: AMOXICILLIN TR/POT CLAVULANATE 500-125 MG TAB ONE (21:11)
[2018-02-11] MEDS: MIRTAZAPINE 15 MG TABLET PO SCH (21:15)
[2018-02-11] MEDS: AMIODARONE HCL 200 MG TABLET PO SCH (21:15)
[2018-02-11] MEDS: AMOXICILLIN TR/POT CLAVULANATE 500-125 MG TAB PO SCH (21:34)
[2018-02-12] MEDS: HEPARIN SOD (PORCINE) 5,000 UNIT/ML 1 ML SYRINGE SUBCUT SCH ×3 (06:09→22:05)
[2018-02-12] MEDS: LORAZEPAM 0.5 MG TABLET PO SCH ×3 (06:09→22:04)
[2018-02-12] MEDS: AMOXICILLIN TR/POT CLAVULANATE 500-125 MG TAB PO SCH ×3 (06:09→22:04)
[2018-02-12] MEDS: HYDROMORPHONE HCL 2 MG TABLET PO PRN ×2 (06:09→15:36)
[2018-02-12] MEDS: IPRATROPIUM/ALBUTEROL 0.5-2.5 MG/3 ML AMPUL NEB SCH ×4 (08:15→19:34)
[2018-02-12] MEDS ORDERED: PREDNISONE 10 MG TABLET PO SCH (10:00)
[2018-02-12] MEDS: FAMOTIDINE 20 MG TABLET PO SCH ×2 (10:19→22:04)
[2018-02-12] MEDS: CLOPIDOGREL BISULFATE 75 MG TABLET PO SCH (10:19)
[2018-02-12] MEDS: FLUOXETINE HCL 20 MG CAPSULE PO SCH (10:19)
[2018-02-12] MEDS: LIDOCAINE 5% (700 MG) TRANSDERMAL ADH..PATCH TP SCH (10:20)
[2018-02-12] MEDS: CETIRIZINE 10 MG TABLET PO SCH (10:20)
[2018-02-12] MEDS: CARVEDILOL 3.125 MG TABLET PO SCH ×2 (10:20→22:19)
[2018-02-12] MEDS: DOCUSATE SODIUM 100 MG CAPSULE PO SCH (12:35)
--- NOTE | 2018-02-12 15:28 | PDOC PROGRESS REPORT ---
Subjective Progress Note for:: 02/12/18 Subjective:: Feeling really good today. She tells me that she was very scared last night and did not know where she was. She would like to go home as soon as possible. She is not having any pain right now. She is able to move about in her bed without difficulty. She is able to walk with a walker without difficulty with monitoring safety. No chest pain. No difficulty breathing. Eating and drinking well. No abdominal pain nausea or vomiting. No bleeding. Patient does have evidence of dementia the daughter corroborates this, she seems to be close to her baseline. Reason For Visit: FALL,RIB FX,PAIN,COPD EXACERBATION Physical Exam Vital Signs: Temp Pulse Resp BP Pulse Ox 98 F 83 17 132/71 H 99 02/12/18 12:00 02/12/18 12:04 02/12/18 12:04 02/12/18 12:00 02/12/18 12:00 Intake & Output 02/11/18 02/12/18 02/13/18 06:59 06:59 06:59 Intake Total 475 Balance 475 Weight 66.5 kg General appearance: PRESENT: no acute distress, thin Head exam: PRESENT: atraumatic, normocephalic Eye exam: ABSENT: conjunctival injection, scleral icterus Ear exam: PRESENT: normal external ear exam Mouth exam: PRESENT: moist, tongue midline Respiratory exam: PRESENT: decreased breath sounds, unlabored. ABSENT: rales, rhonchi, wheezes Cardiovascular exam: PRESENT: RRR GI/Abdominal exam: PRESENT: normal bowel sounds, soft. ABSENT: distended, guarding, tenderness Extremities exam: ABSENT: pedal edema Musculoskeletal exam: PRESENT: ambulatory Neurological exam: PRESENT: alert, awake, oriented to person, oriented to place Psychiatric exam: PRESENT: anxious Skin exam: PRESENT: dry, warm, other - Patient has ecchymoses over her left lateral distal thorax. She also has a skin tear in the right antecubital region which is healing well and without signs of infection. Has a laceration over the left arm with several Steri-Strips in place. No sign of infection today. Results Laboratory Results: 02/07/18 04:44 02/11/18 04:20 Impressions: Abdomen/Pelvis CT 02/06/18 18:05 IMPRESSION: NO SIGNIFICANT OR ACUTE FINDING IN THE ABDOMEN OR PELVIS ON CT SCAN WITH IV CONTRAST. Cervical Spine CT 02/06/18 18:05 IMPRESSION: CHRONIC DEGENERATIVE CHANGES. NO ACUTE FINDINGS. Chest CT 02/06/18 18:05 IMPRESSION: LEFT-SIDED RIB FRACTURES DESCRIBED ABOVE. NO OTHER SIGNIFICANT FINDINGS IN THE CHEST. Head CT 02/06/18 18:05 IMPRESSION: MILD CHRONIC CHANGES OF ATROPHY AND MICROVASCULAR ISCHEMIA. NO ACUTE PROCESS. EVIDENCE OF ACUTE STROKE: NO. Assessment & Plan - Diagnosis (1) Multiple fractures of ribs, left side, initial encounter for closed fracture Is this a current diagnosis for this admission?: Yes Plan: Doing very well from this perspective. Fentanyl patch has been off since last night. She received 1 dose of oral Dilaudid 2 mg early this morning and none since. She has lidocaine patches over her posterior rib fracture sites. Continue current care. (2) COPD with exacerbation Is this a current diagnosis for this admission?: Yes Plan: Yesterday patient had respiratory distress with significant wheezing and cough. We scheduled her duo nebs and started Augmentin and gave her a few doses of prednisone. She is feeling significantly better. Will continue Augmentin and duo nebs scheduled along with as needed. Have discontinued steroids secondary to owning episode yesterday, possibly contributed to by steroids. (3) Do not resuscitate Is this a current diagnosis for this admission?: Yes (4) Atrial fibrillation Qualifiers: Atrial fibrillation type: paroxysmal Qualified Code(s): I48.0 - Paroxysmal atrial fibrillation Is this a current diagnosis for this admission?: Yes Plan: Rate controlled. Continue current care. (5) Dementia Qualifiers: Dementia type: unspecified type Dementia behavioral disturbance: without behavioral disturbance Qualified Code(s): F03.90 - Unspecified dementia without behavioral disturbance Is this a current diagnosis for this admission?: Yes Plan: Patient is living in assisted living unit. She has dementia. She is on hospice for COPD. [place] to her dementia she had an episode of hospital- acquired delirium/metabolic encephalopathy, related to being in the hospital most likely. He was agitated and scared and acting out, she was getting up in an unsafe manner. She had to receive a dose of Haldol. As she is doing so well today and had that episode last night I wanted to discharge her today but am unable to because neither family nor hospice is willing or able to pickle pumper her prescriptions to take to the [facility]. We will do what we can to prevent another owning episode tonight for safety. - Time Time Spent with patient: 35 or more minutes Medications reviewed and adjusted accordingly: Yes - Inpatient Certification Based on my medical assessment, after consideration of the patient's comorbidities, presenting symptoms, or acuity I expect that the services needed warrant INPATIENT care.: Yes I certify that my determination is in accordance with my understanding of Medicare's requirements for reasonable and necessary INPATIENT services [42 CFR 412.3e].: Yes Medical Necessity: Risk of Complication if Not Cared For in Hospital
[2018-02-12] MEDS: AMIODARONE HCL 200 MG TABLET PO SCH (22:04)
[2018-02-12] MEDS: MIRTAZAPINE 15 MG TABLET PO SCH (22:04)
[2018-02-13] MEDS: HEPARIN SOD (PORCINE) 5,000 UNIT/ML 1 ML SYRINGE SUBCUT SCH ×2 (05:52→13:43)
[2018-02-13] MEDS: AMOXICILLIN TR/POT CLAVULANATE 500-125 MG TAB PO SCH ×2 (05:52→13:43)
[2018-02-13] MEDS: LORAZEPAM 0.5 MG TABLET PO SCH ×2 (05:52→13:43)
[2018-02-13] MEDS: IPRATROPIUM/ALBUTEROL 0.5-2.5 MG/3 ML AMPUL NEB SCH ×3 (08:22→15:59)
[2018-02-13] MEDS: FLUOXETINE HCL 20 MG CAPSULE PO SCH (10:26)
[2018-02-13] MEDS: CLOPIDOGREL BISULFATE 75 MG TABLET PO SCH (10:26)
[2018-02-13] MEDS: LIDOCAINE 5% (700 MG) TRANSDERMAL ADH..PATCH TP SCH (10:27)
[2018-02-13] MEDS: CARVEDILOL 3.125 MG TABLET PO SCH (10:27)
[2018-02-13] MEDS: CETIRIZINE 10 MG TABLET PO SCH (10:27)
[2018-02-13] MEDS: FAMOTIDINE 20 MG TABLET PO SCH (10:27)
--- NOTE | 2018-02-13 11:49 | PDOC DISCHARGE SUMMARY ---
General - Admit/Disc Date/PCP Admission Date/Primary Care Provider: 02/06/18 23:14 NOEL NAVARRO NP Discharge Date: 02/13/18 - Discharge Diagnosis (1) Multiple fractures of ribs, left side, initial encounter for closed fracture Is this a current diagnosis for this admission?: Yes Summary: Patient tripped over her feet while using her walker and her USP. She fractured several ribs and several spots in the left hemithorax. She had fairly significant pain related to this. She was originally on a fentanyl 25 mcg patch that was increased to a 50 mcg patch. The fentanyl was then removed secondary to hypersomnolence and her pain was also better controlled. She also received Lidoderm patches over the fracture sites and she will be discharged with Lidoderm patches for 5 more days. She has received 2 mg of oral Dilaudid very sparingly for breakthrough pain and she will be discharged with several doses of that as well. We recommend ibuprofen and/or Tylenol for continued pain. (2) COPD with exacerbation Is this a current diagnosis for this admission?: Yes Summary: Patient has end-stage COPD and is on hospice for this. While hospitalized she had a COPD exacerbation. She was treated with several doses of steroids and is on Augmentin for several more days upon discharge. She was on [id number] duo nebs which helped considerably. She is much improved from the exacerbation perspective. (3) Do not resuscitate Is this a current diagnosis for this admission?: Yes (4) Atrial fibrillation Is this a current diagnosis for this admission?: Yes Summary: Heart rate is well controlled. Continue current care for A. fib. No changes to her home regimen were made. (5) Dementia Is this a current diagnosis for this admission?: Yes Summary: Patient had an episode of sundowning while in the hospital. She received a dose of Haldol. She had a sitter for safety. She was impulsive. These symptoms have now resolved. (6) Skin tear Is this a current diagnosis for this admission?: Yes Summary: Patient has skin tears on the bilateral arms. No sign of infection. Will need continued monitoring to keep clean and to prevent infection. She also has ecchymosis over her left lateral distal hemithorax. - Additional Information Resuscitation Status: Do Not Resuscitate Discharge Diet: As Tolerated Discharge Activity: Activity As Tolerated Prescriptions: Amox Tr/Potassium Clavulanate [Augmentin "500" Tablet] 1 tab PO Q8 4 Days #8 tablet Hydromorphone HCl [Dilaudid 2 mg Tablet] 2 mg PO Q6HP PRN 2 Days #8 tablet PRN Reason: Lidocaine [Lidoderm 5% (700 mg) Transdermal Patch] 2 patch TP DAILY 5 Days #10 adh..patch Home Medications: Atorvastatin Calcium [Lipitor 20 mg Tablet] 20 mg PO QHS #30 tablet 11/24/17 Carvedilol [Coreg 3.125 mg Tablet] 3.125 mg PO Q12 #60 tablet 11/24/17 Clopidogrel Bisulfate [Plavix 75 mg Tablet] 75 mg PO DAILY #30 tablet 11/24/17 Docusate Sodium [Colace 100 mg Capsule] 100 mg PO DAILY #30 capsule 11/24/17 Famotidine [Pepcid 20 mg Tablet] 20 mg PO Q12 #60 tablet 11/24/17 Fluoxetine HCl [Prozac] 40 mg PO DAILY #30 capsule 11/24/17 Fluticasone/Salmeterol [Advair 500-50 Diskus 14 Dose/Diskus] 1 inh IH Q12 #1 inhaler 11/24/17 Haloperidol [Haldol 0.5 mg Tablet] 0.5 mg PO Q4HP PRN #20 tablet 11/24/17 Prednisone [Deltasone 5 mg Tablet] 5 mg PO DAILY #30 tablet 11/24/17 Carisoprodol 250 mg PO Q12 02/07/18 Fluticasone Propionate 1 spray NASL DAILYP PRN 02/07/18 Ipratropium/Albuterol Sulfate [Duoneb 3 ml Ampul] 3 ml NEB RTQ6HP PRN 02/07/18 Lisinopril [Prinivil 5 mg Tablet] 5 mg PO DAILY 02/07/18 Amiodarone HCl [Cordarone 200 mg Tablet] 100 mg PO QHS tablet 02/13/18 Amox Tr/Potassium Clavulanate [Augmentin "500" Tablet] 1 tab PO Q8 4 Days #8 tablet 02/13/18 Cetirizine HCl [Zyrtec 10 mg Tablet] 10 mg PO DAILY tablet 02/13/18 Hydromorphone HCl [Dilaudid 2 mg Tablet] 2 mg PO Q6HP PRN 2 Days #8 tablet 02/13 Lidocaine [Lidoderm 5% (700 mg) Transdermal Patch] 2 patch TP DAILY 5 Days #10 adh..patch 02/13/18 Lorazepam [Ativan 0.5 mg Tablet] 0.5 mg PO Q8 tablet 02/13/18 Mirtazapine [Remeron 15 mg Tablet] 15 mg PO QHS tablet 02/13/18 History of Present Illness History of Present Illness: NIGHAT LIVINGSTON is a 77 year old female Hospital Course Hospital Course: Zoya Livingston is a 77 year old woman with a past medical history of hospice for oxygen dependent COPD, tobacco dependence, hypertension, congestive heart failure and atrial fibrillation. Patient is a resident of [facility] and presents after a trip and fall to her left chest resulting in intractable pain. She is brought to the emergency room and found to have skin tears of the upper extremity bilaterally and four left-sided rib fractures and referred to the hospitalist for admission. Patient denies headache, nausea vomiting or blurred vision. She denies recent change in medications. And otherwise feels well Physical Exam Vital Signs: Temp Pulse Resp BP Pulse Ox 97.7 F 70 18 107/61 94 02/13/18 10:17 02/13/18 10:17 02/13/18 10:17 02/13/18 10:17 02/13/18 10:17 Intake & Output 02/12/18 02/13/18 02/14/18 06:59 06:59 06:59 Intake Total 760 Balance 760 Weight 67.5 kg 67.5 kg General appearance: PRESENT: no acute distress, cooperative, thin Eye exam: ABSENT: conjunctival injection, scleral icterus Mouth exam: PRESENT: moist, tongue midline Respiratory exam: PRESENT: decreased breath sounds, unlabored. ABSENT: rales, rhonchi, wheezes Cardiovascular exam: PRESENT: RRR Pulses: PRESENT: normal radial pulses GI/Abdominal exam: PRESENT: normal bowel sounds, soft. ABSENT: distended, guarding, tenderness Musculoskeletal exam: ABSENT: deformity Neurological exam: PRESENT: alert, awake, oriented to person. ABSENT: oriented to place, oriented to situation Psychiatric exam: PRESENT: appropriate affect. ABSENT: anxious Skin exam: PRESENT: dry, warm, other - Left and right mid arms with small skin tears and abrasions that are uninfected and healing well. Results Laboratory Results: 02/07/18 04:44 02/11/18 04:20 Impressions: Abdomen/Pelvis CT 02/06/18 18:05 IMPRESSION: NO SIGNIFICANT OR ACUTE FINDING IN THE ABDOMEN OR PELVIS ON CT SCAN WITH IV CONTRAST. Cervical Spine CT 02/06/18 18:05 IMPRESSION: CHRONIC DEGENERATIVE CHANGES. NO ACUTE FINDINGS. Chest CT 02/06/18 18:05 IMPRESSION: LEFT-SIDED RIB FRACTURES DESCRIBED ABOVE. NO OTHER SIGNIFICANT FINDINGS IN THE CHEST. Head CT 02/06/18 18:05 IMPRESSION: MILD CHRONIC CHANGES OF ATROPHY AND MICROVASCULAR ISCHEMIA. NO ACUTE PROCESS. EVIDENCE OF ACUTE STROKE: NO. Qualifiers - * PATIENT BEING DISCHARGED WITH ANY OF THE FOLLOWING DIAGNOSIS: No Plan Discharge Plan: Patient will be discharged back to [facility] with hospice for end-stage COPD. She has been feeling significantly better over the past 24 hours. She has not required opioid pain medications routinely. She was able to walk around the hallways with her walker yesterday. Time Spent: Greater than 30 Minutes
[2018-02-13] MEDS: DOCUSATE SODIUM 100 MG CAPSULE PO SCH (12:49)
[2018-02-13] MEDS: HYDROMORPHONE HCL 2 MG TABLET PO PRN (13:43)
[2018-02-13 16:51] VITALS: BP 116/46
[2018-02-14] MEDS ORDERED: FENTANYL 12 MCG/HR PATCH.TD72 TD SCH (10:00)
[2018-02-14] MEDS ORDERED: FENTANYL 25 MCG/HR PATCH.TD72 TD SCH (10:00)
== END 2018-02-13 17:35 | disposition short-term general hospital (02) | DRG 183 ==
LOC: ER 17:49 → EH 23:14 → 3N 02-07 01:36 → 2N 02-10 23:28
PROVIDERS: ADMIT Internal Medicine; ATTEND Internal Medicine
PROC: 3E0F73Z Introduction of Anti-inflammatory into Respiratory Tract, Via Natural or Artificial Opening (ICD-10-PCS; 2018-02-07)
PROC: 5A09457 Assistance with Respiratory Ventilation, 24-96 Consecutive Hours, Continuous Positive Airway Pressure (ICD-10-PCS; principal; 2018-02-08)
DX: S22.42XA Multiple fractures of ribs, left side, initial encounter for closed fracture (principal); G93.41 Metabolic encephalopathy; J44.1 Chronic obstructive pulmonary disease with (acute) exacerbation; I50.42 Chronic combined systolic (congestive) and diastolic (congestive) heart failure; W01.0XXA Fall on same level from slipping, tripping and stumbling without subsequent striking against object, initial encounter; Z66 Do not resuscitate; F03.90 Unspecified dementia, unspecified severity, without behavioral disturbance, psychotic disturbance, mood disturbance, and anxiety; I11.0 Hypertensive heart disease with heart failure; M19.90 Unspecified osteoarthritis, unspecified site; F17.210 Nicotine dependence, cigarettes, uncomplicated; I48.0 Paroxysmal atrial fibrillation; S81.812A Laceration without foreign body, left lower leg, initial encounter; S81.811A Laceration without foreign body, right lower leg, initial encounter; K59.00 Constipation, unspecified; S51.812A Laceration without foreign body of left forearm, initial encounter; S51.811A Laceration without foreign body of right forearm, initial encounter; Z79.52 Long term (current) use of systemic steroids; Z79.02 Long term (current) use of antithrombotics/antiplatelets; Z79.899 Other long term (current) drug therapy; Z99.81 Dependence on supplemental oxygen; Z90.49 Acquired absence of other specified parts of digestive tract; Z82.61 Family history of arthritis; Z82.49 Family history of ischemic heart disease and other diseases of the circulatory system; Z82.3 Family history of stroke; Z83.3 Family history of diabetes mellitus; Z80.9 Family history of malignant neoplasm, unspecified
CPT/HCPCS: 36415; 70450; 71260; 72125; 74177; 80048; 80053; 81001; 85025; 85610; 85730; 94640; 94660; 94799; 96374; 99285; J1170; J1644; J1885; J2270; J3490; J7512; J7620

== ENCOUNTER 2018-04-12 12:49 | Emergency (ER) | payer MEDICARE, MEDICAID ==
[2018-04-12 13:10] LABS: ABSOLUTE EOSINOPHILS # (AUTO) 0.6 10^3/uL (0.0-0.6); ABSOLUTE LYMPHOCYTES (AUTO) 0.7 10^3/uL (0.5-4.7); ABSOLUTE MONOCYTES (AUTO) 0.4 10^3/uL (0.1-1.4); BASOPHILS % (AUTO) 0.4 % (0-2); EOSINOPHILS % (AUTO) 8.8 % (0-6); HEMATOCRIT 44.2 % (36.0-47.0); HEMOGLOBIN 14.2 g/dL (12.0-15.5); LYMPHOCYTES % (AUTO) 10.6 % (13-45); MEAN CORPUSCULAR HEMOGLOBIN 29.2 pg (27.0-33.4); MEAN CORPUSCULAR HGB CONC 32.1 g/dL (32.0-36.0); MEAN CORPUSCULAR VOLUME 91 fl (80-97); MONOCYTES % (AUTO) 5.6 % (3-13); PLATELET COUNT 237 10^3/uL (150-450); RED BLOOD COUNT 4.86 10^6/uL (3.72-5.28); RED CELL DISTRIBUTION WIDTH 16.7 % (11.5-14.0); SEGMENTED NEUTROPHILS % (AUTO) 74.6 % (42-78); TOTAL CELLS COUNTED % (AUTO) 100 %; WHITE BLOOD COUNT 6.7 10^3/uL (4.0-10.5)
--- NOTE | 2018-04-12 13:14 | ER Document Report ---
ED Respiratory Problem - General Stated Complaint: SHORTNESS OF BREATH Time Seen by Provider: 04/12/18 13:06 Mode of Arrival: Medic Information source: Patient, Emergency Med Personnel TRAVEL OUTSIDE OF THE [place] IN LAST 30 DAYS: No - HPI Patient complains to provider of: Short of breath Onset: Other - 2 DAYS Duration: Continuous, Worse/persistent - THIS AM Quality of pain: No pain Context: Hx COPD Short of Breath: Mild Cough: Nonproductive - LOOSE, BUT CAN'T MOBILIZE Sputum amount: None At home treatment: Bronchodilators, Oxygen Associated symptoms: Cough, Short of breath, Sweaty, Wheezing, Other - SYNCOPAL EPISODE THIS A.M.. denies: Chest pain/discomfort, Chills, Fever, Leg/calf/ joint pain Worsened by: EXERTION Similar symptoms previously: Yes - NOT RECENT Recently seen / treated by doctor: No - Related Data Allergies/Adverse Reactions: No Known Allergies Allergy (Verified 11/20/17 09:13) Past Medical History - General Information source: Patient - Social History Smoking Status: Former Smoker - QUIT JUST 1 MONTH AGO Cigarette use (# per day): No Chew tobacco use (# tins/day): No Frequency of alcohol use: None Drug Abuse: None Lives with: [facility] Family History: Arthritis, CAD, CVA, DM, Hypertension, Malignancy - Past Medical History Cardiac Medical History: Reports: Hx Atrial Fibrillation, Hx Congestive Heart Failure, Hx Hypertension Pulmonary Medical History: Reports: Hx COPD, Hx Pneumonia - and hypoxemia Neurological Medical History: Reports: None Endocrine Medical History: Reports: None Renal/ Medical History: Reports: None. Denies: Hx Peritoneal Dialysis GI Medical History: Reports: Hx Gastritis Musculoskeletal Medical History: Reports Hx Arthritis Psychiatric Medical History: Reports: Hx Dementia Denies: Hx Depression Past Surgical History: Reports: Hx Cholecystectomy, Hx Oral Surgery, Hx Tubal Ligation - Immunizations Immunizations up to date: Yes Hx Diphtheria, Pertussis, Tetanus Vaccination: Yes - unknown Review of Systems - Review of Systems Constitutional: Diaphoresis. denies: Chills, Fever EENT: No symptoms reported Cardiovascular: No symptoms reported Respiratory: See HPI Gastrointestinal: No symptoms reported Genitourinary: No symptoms reported Female Genitourinary: Post menopausal Musculoskeletal: No symptoms reported Skin: No symptoms reported Neurological/Psychological: Confusion, Lost consciousness Physical Exam - Vital signs Vitals: Temp Pulse Resp BP Pulse Ox 97.6 F 80 22 H 98/53 L 92 04/12/18 12:51 04/12/18 12:51 04/12/18 12:51 04/12/18 12:51 04/12/18 12:51 Interpretation: Hypotensive, Hypoxic, Tachypneic. No: Tachycardic, Febrile - General General appearance: Appears well, Alert In distress: None - HEENT Head: Normocephalic Eyes: Normal Conjunctiva: Normal Ears: Normal Nasal: Normal Mouth/Lips: Normal Mucous membranes: Normal Pharynx: Normal Neck: Normal - Respiratory Respiratory status: No respiratory distress Chest status: Nontender Breath sounds: Wheezing - FEW, END-EXP., ALL LOBES - Cardiovascular Rhythm: Regular Heart sounds: Normal auscultation Murmur: No - Abdominal Inspection: Normal Distension: No distension - Back Back: Normal - Extremities General upper extremity: Normal inspection General lower extremity: Normal inspection. No: Tender, Edema - Neurological Neuro grossly intact: Yes Cognition: Normal Orientation: Disoriented to place, Disoriented to time, Disoriented to events [place] Coma Scale Eye Opening: Spontaneous [place] Coma Scale Verbal: Oriented [place] Coma Scale Motor: Obeys Commands [place] Coma Scale Total: 15 - Psychological Associated symptoms: Normal affect, Normal mood - Skin Skin Temperature: Warm Skin Moisture: Dry Skin Color: Normal Skin Turgor: Elastic Course - Vital Signs Vital signs: Temp Pulse Resp BP Pulse Ox 97.6 F 80 14 120/56 L 98 04/12/18 12:51 04/12/18 12:51 04/12/18 18:01 04/12/18 18:01 04/12/18 17:01 - Laboratory Result Diagrams: 04/12/18 12:56 04/12/18 12:56 Laboratory results interpreted by hi: 04/12/18 04/12/18 04/12/18 12:56 12:56 15:20 RDW 16.7 H Lymphocytes % 10.6 L Eosinophils % 8.8 H Carbon Dioxide 32 H Est GFR (Non-Af Amer) 58 L Glucose 166 H Total Protein 6.1 L Urine Protein 30 H Urine Glucose (UA) 50 H Urine Blood SMALL H - EKG Interpretation by Ne EKG shows normal: Sinus rhythm, [place], QRS Complexes. abnormal: Intervals - LONG QT, ST-T Waves - ANT/LAT T ABNLS, ? ISCHEMIC Rate: Normal Rhythm: NSR [place]/QRS: Right axis deviation Discharge - Discharge Clinical Impression: COPD exacerbation, Cough syncope Condition: Stable Disposition: HOME, SELF-CARE Instructions: Chronic Obstructive Lung Disease ([facility]), Corticosteroid Medication ([facility]), Inhaled Bronchodilators ([facility]), Syncopal Episode ([facility]) Additional Instructions: MEDS DIRECTED. DRINK PLENTY OF FLUIDS. CONTINUE USING YOUR OXYGEN DIRECTED, NEEDED. FOLLOW UP WITH YOUR PRIMARY CARE PROVIDER OR RETURN TO E.R. IF PROBLEMS. Prescriptions: Azithromycin [Zithromax 250 mg Tablet] 250 mg PO DAILY #4 tablet Prednisone 20 mg PO TID #9 tablet Referrals: NOEL NAVARRO [facility] [Primary Care Provider] - Follow up as needed
[2018-04-12 13:42] LABS: CREATINE KINASE MB 1.48 ng/mL (<4.55); TROPONIN I 0.029 ng/mL
[2018-04-12] MEDS: IPRATROPIUM/ALBUTEROL 0.5-2.5 MG/3 ML AMPUL NEB ONE (13:46)
[2018-04-12 13:48] LABS: ALANINE AMINOTRANSFERASE 25 U/L (9-52); ALBUMIN 3.7 g/dL (3.5-5.0); ALKALINE PHOSPHATASE 88 U/L (38-126); ANION GAP 10 (5-19); ASPARTATE AMINO TRANSFERASE 21 U/L (14-36); BILIRUBIN,DIRECT 0.3 mg/dL (0.0-0.4); BILIRUBIN,TOTAL 0.5 mg/dL (0.2-1.3); BLOOD UREA NITROGEN 13 mg/dL (7-20); CALCIUM 9.1 mg/dL (8.4-10.2); CARBON DIOXIDE 32 mmol/L (22-30); CHLORIDE 103 mmol/L (98-107); CREATINE KINASE 41 U/L (30-135); GLUCOSE 166 mg/dL (75-110); POTASSIUM 4.6 mmol/L (3.6-5.0); TOTAL PROTEIN 6.1 g/dL (6.3-8.2)
--- NOTE | 2018-04-12 13:59 | RADIOLOGY REPORT (SQ) ---
EXAM DESCRIPTION: CHEST SINGLE VIEW COMPLETED DATE/TIME: 04/12/2018 1:16 pm REASON FOR STUDY: diff. breathing COMPARISON: 11/20/2017. EXAM PARAMETERS: NUMBER OF VIEWS: One view. TECHNIQUE: Single frontal radiographic view of the chest acquired. RADIATION DOSE: NA LIMITATIONS: None. FINDINGS: LUNGS AND PLEURA: Hyperinflation. Possible streaky density in the left lung base overlyin g the cardiac silhouette. No masses or pneumothorax. No pleural effusion. MEDIASTINUM AND HILAR STRUCTURES: No masses. Contour normal. HEART AND VASCULAR STRUCTURES: Heart normal in size. Normal vasculature. BONES: No acute findings. HARDWARE: None in the chest. OTHER: No other significant finding. IMPRESSION: POSSIBLE FAINT ATELECTASIS OR EARLY INFILTRATE IN THE LEFT LUNG BASE. OTHERWISE CLEAR. TECHNICAL DOCUMENTATION: JOB ID: [id number] [employer] All Rights Reserved Reading location - IP/workstation name: [email or web address]
[2018-04-12] MEDS: ALBUTEROL SULFATE 0.083% NEB 2.5 MG/3 ML AMPUL NEB ONE (15:43)
[2018-04-12] MEDS: CEFTRIAXONE INJ 1000 MG VIAL IV ONE (15:43)
[2018-04-12] MEDS: METHYLPREDNISOLONE INJ 125 MG/2 ML SDV IV ONE (15:44)
[2018-04-12 15:54] LABS: APPEARANCE,URINE SLIGHTLY-CLOUDY; BILIRUBIN,URINE NEGATIVE (NEGATIVE); COLOR,URINE YELLOW; GLUCOSE, URINE 50 mg/dL (NEGATIVE); KETONES,URINE NEGATIVE (NEGATIVE); LEUKOCYTE ESTERASE,URINE NEGATIVE (NEGATIVE); NITRITE,URINE NEGATIVE (NEGATIVE); PROTEIN,URINE 30 mg/dL (NEGATIVE); URINE SPECIFIC GRAVITY 1.014; UROBILINOGEN,URINE NEGATIVE mg/dL (<2.0)
[2018-04-12] MEDS: AZITHROMYCIN 250 MG TABLET PO ONE (17:14)
[2018-04-12 18:28] VITALS: BP 120/56
--- NOTE | 2018-04-12 22:02 | EKG REPORT ---
SEVERITY:- ABNORMAL ECG - SINUS RHYTHM RIGHT AXIS DEVIATION ABNORMAL T, CONSIDER ISCHEMIA, ANT-LAT LEADS PROLONGED QT INTERVAL : Confirmed by: Mau Perea 12-Apr-2018 22:01:19
== END 2018-04-12 18:47 | disposition home or self-care (01) ==
LOC: ER 12:49
DX: J44.1 Chronic obstructive pulmonary disease with (acute) exacerbation (principal); R06.02 Shortness of breath; R05 Cough; R55 Syncope and collapse; R61 Generalized hyperhidrosis; R41.0 Disorientation, unspecified; I10 Essential (primary) hypertension; Z87.01 Personal history of pneumonia (recurrent); Z87.891 Personal history of nicotine dependence
CPT/HCPCS: 93005; 36415; 87040; 82553; 82550; 85025; 80053; 81001; 84484; 71045; 93010; A9270 ×3; J2930; J0696; J7620